=== PATIENT | female | born 1990 | race Caucasian/White ===

== ENCOUNTER 2023-04-09 19:34 | Outpatient (REF) | payer OTHER, SELFPAY ==
[2023-04-15 10:07] LABS: Age Gdln ACOG Testing Note (.); HPV Aptima Negative (Negative); IGP, Aptima HPV, rfx 16/18,45 Note (.)
== END 2023-04-09 19:35 | disposition home or self-care (01) ==
LOC: LAB 19:34
PROVIDERS: Family Provider Family Medicine; Visit Provider Physician Assistant
DX: Z12.4 Encounter for screening for malignant neoplasm of cervix (principal)
CPT/HCPCS: G0145

== ENCOUNTER 2023-04-22 07:44 | Outpatient (OUT) | payer OTHER, SELFPAY ==
--- NOTE | 2023-04-22 07:54 | US_ITS ---
[address] [address] Patient Name: MALLORY BERMEO MRN: [id number] date: 1990 Sex: F Assigned Patient Location: Current Patient Location: Accession/Order Number: [id number] Exam Date: 04/22/2023 08:00 Report Date: 04/22/2023 08:54 At the request of: RAZA MORGAN Procedure: US pelvis transvaginal EXAM: US pelvis transvaginal HISTORY: . Polycystic Ovarian Syndrome . COMPARISON: None. TECHNIQUE: Transvaginal scanning was performed FINDINGS: Scanning of the pelvis demonstrates uterus to be anteverted and measures 6.6 x 2.8 x 4.5 cm. Endometrial complex measures 5 mm. Right ovary measures 4.1 x 2.7 x 2.8 cm. Color-flow is noted. Small follicles are noted. There is a 3 x 2.3 cm simple cyst in the right ovary. Left ovary measures 2.2 x 2.4 x 1 cm. Color-flow is noted. Small follicles are noted. No fluid is noted in the cul-de-sac. US/US pelvis transvaginal IMPRESSION: 1. Normal-appearing uterus and endometrial complex. 2. 3 x 2.3 cm simple cyst in the right ovary. 3. Normal-appearing left ovary. Electronically authenticated by: SEBASTIEN LYNN Date: 04/22/2023 08:54
[2023-04-22 09:04] LABS: Basophils Absolute Auto 0.1 10^3/uL (0.0-0.1); Basophils Percent Auto 0.5 % (0.2-2.0); Eosinophils Absolute Auto 0.3 10^3/uL (0.0-0.7); Eosinophils Percent Auto 2.9 % (0.9-7.0); Hematocrit 38.1 % (36.0-48.0); Hemoglobin 13.1 g/dL (12.0-16.0); Immature Granulocytes Abs Auto 0.05 10^3/uL (0.00-0.03); Immature Granulocytes Pct Auto 0.5 % (0.0-0.5); Lymphocytes Absolute Auto 2.3 10^3/uL (1.2-3.8); Lymphocytes Percent Auto 24.7 % (20.5-60.0); Mean Corpuscular HGB Conc 34.4 g/dL (29.9-35.2); Mean Corpuscular Volume 90.1 fL (81.0-99.0); Mean Platelet Volume 9.4 fL (9.5-13.5); Monocytes Absolute Auto 0.5 10^3/uL (0.3-0.8); Neutrophils Absolute Auto 6.1 10^3/uL (1.4-6.5); Neutrophils Percent Auto 66.4 % (43.0-75.0); Platelet Count 283 10^3/uL (150-450); Red Blood Count 4.23 10^6/uL (4.20-5.40); Red Cell Distribution Width 13.2 % (11.0-15.0); White Blood Count 9.2 10^3/uL (4.0-11.0)
[2023-04-22 09:29] LABS: INR 0.96; Partial Thromboplastin Time 30.3 sec (22.3-36.2); Prothrombin Time 10.2 sec (9.0-11.6)
[2023-04-22 09:35] LABS: Estimated Average Glucose 180 mg/dL; Glycohemoglobin A1C 7.9 % (4.5-6.2)
[2023-04-22 09:46] LABS: HCG Quantitative <1 mIU/mL; Thyroid Stimulating Hormone 3.134 uIU/mL (0.358-3.740)
[2023-04-22 10:08] LABS: Free T4 0.99 ng/dL (0.76-1.46)
== END 2023-04-22 07:45 | disposition home or self-care (01) ==
PROVIDERS: Family Provider Family Medicine; PCP Family Medicine; Visit Provider Physician Assistant
DX: N97.0 Female infertility associated with anovulation (principal); N83.291 Other ovarian cyst, right side
CPT/HCPCS: 36415; 76830; 83036; 84439; 84443; 84702; 85025; 85610; 85730

== ENCOUNTER 2023-06-03 10:32 | Outpatient (OUT) | payer OTHER, SELFPAY ==
[2023-06-03 11:42] LABS: Thyroid Stimulating Hormone 1.421 uIU/mL (0.358-3.740)
[2023-06-03 18:46] LABS: Estimated Average Glucose 169 mg/dL; Glycohemoglobin A1C 7.5 % (4.5-6.2)
== END 2023-06-03 10:33 | disposition home or self-care (01) ==
LOC: LAB 10:34
PROVIDERS: Family Provider Family Medicine; PCP Family Medicine; Visit Provider Obstetrics & Gynecology
DX: E07.9 Disorder of thyroid, unspecified (principal); E88.810 Metabolic syndrome
CPT/HCPCS: 36415; 83036; 84443

== ENCOUNTER 2025-01-18 12:48 | Outpatient (OUT) | payer OTHER, SELFPAY ==
--- OUTSIDE RECORDS SUMMARY | 2024-08-30 09:27 | XMS_ITS ---
Author Organization The [facility] in [place] Address [address] [place] [address] Care Team Providers Care Cake Washer Name Role Phone Marla Fritz Primary Care Provider [phone] REASON FOR VISIT Update Demographics - Personal Info Encounters Encounter Location Date Provider Diagnosis [facility] [address] [place] [address] 08/30/2024 Marla Fritz Plan Of Treatment No Information Progress Notes * Katherin OLVERA RDOB:1990 (34 yo F)Acc No.[id number]:08/30/2024 Patient: Katherin CEBALLOS :1990 A ge:34 Y S ex:Female Address:[address] [place], [address] * true * Date: Generated for Printi ng/Faelfegog/eTransmitting on: 0 01/18/2025 12:53 PM EDT
--- OUTSIDE RECORDS SUMMARY | 2024-08-30 09:27 | XMS_ITS ---
Author Organization The [facility] in [place] Address [address] [place] [address] Care Team Providers Care Rubber Curer Name Role Phone Marla Fritz Primary Care Provider [phone] REASON FOR VISIT New Refill Request Medications [...] Active Encounters Encounter Location Date Provider Diagnosis [facility] [address] [place] [address] 08/30/2024 Marla Fritz Type 2 diabetes mellitus [...] Once a day for 30 days 03/05/2024 Progress Notes * Katherin BERMEO RDOB:1990 (34 yo F)Acc No.[id number]:08/30/2024 Patient: Katherin CEBALLOS :1990 A ge:34 Y S ex:Female Address:[facility] [address] [place], [address] * Refills Refill Levothyroxine Sodium Tablet, 25 MCG, Orally, 3, 1 tablet in the morning on an empty stomach, Once a day, 30 days, Refills=0 Refill glipiZIDE Tablet, 5 MG, Orally, 30, 1 tablet 30 minutes before breakfast, Once a day, 30 days, Refills=3 * true * Date: Generated for Stephani real/Tom/Aditiitting on: 0 01/18/2025 12:54 PM EDT
--- OUTSIDE RECORDS SUMMARY | 2024-11-10 05:45 | XMS_ITS ---
Author Organization [facility] in [place] Address [address] [place] [address] Care Team Providers Care Critical Care Nurse Name Role Phone Marla Frtiz Primary Care Provider Maggie Dover [phone] Results Component Value Reference Range Notes UA DIP AUTO WO MICRO (20785) - IN OFFICE Reviewed date:11/10/2024 10:21:53 AM [...] - NEG ESTERASE neg NEG - NEG PREG ([facility]), URINE - IN OFFI CE Reviewed date:11/10/2024 10:22:05 AM Interpretation: Performing Lab: Notes/Report: PREG ([facility]), URINE - IN OFFICE neg NEG - NEG Control Present yes UA (URINALYSIS), COMPLETE (8 1000) - IN OFFICE (Not yet reviewed by provider) Interpretation:Entered in Error Performing Lab: Notes/Report: Entered in Error COLOR tipton YELLOW - DEB CLARITY cloudy CLEAR - CLEAR GLUCOSE 2+ NEG - NEG MG/DL REASON FOR VISIT sick Medications Medication SIG [...] 11/10/2024 Encounters Encounter Location Date Provider Diagnosis [facility] [address] [place] [address] 11/10/2024 Maggie Stanislaw Nausea R11.0 ; Other [...] w/eGFR CKD-EPI 2024 CBC WITH DIFF 11/10/2024 Progress Notes * Katherin BERMEO RDOB:1990 (34 yo F)Acc No.[id number]:11/10/2024 Established Patient: Mary MIRGRACEKatherin R Provider: Kassi Dvoer :1990 A ge:34 Y S ex:Female Date:11/10/2024 Address:[facility] [address] [facility] Pcp:Marla Fritz Check In:09:33 AM ESTCheck O ut:10:22 AM EST Subjective: * Chief Complaints: * 1 . Sick. 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 [...] L AB: UA DIP AUTO WO MICRO (25789) - IN OFFICE (Collection Date & Time - 11/10/2024) L AB: UA (URINALYSIS), COMPLETE (10473) - IN OFFICE (Order Cancelled) (Collection Date [...] Labs: * L ab: UA (URINALYSIS), COMPLETE (12218) - IN OFFICE (Order Cancelled) (Collection Date & Time - 11/10/2024) E ntered in Error Value Reference Range C OLOR tipton YELLOW - DEB * C LARITY cloudy CLEAR - CLEAR * G LUCOSE 2+ NEG - NEG MG/DL ?Lab: PREG ([facility]), URINE - IN OFFICE (Collection Date & Time - 11/10/2024)* Value Reference Range P REG ([facility]), URINE - IN OFFICE neg NEG - NEG * C ontrol Present yes ?Lab: UA DIP AUTO WO MICRO (52741) - IN OFFICE (Collection Date & Time [...] NEG * Procedure Codes: 8 1000 URINALYSIS, 05800 URINE TEST, 34709 HEMOGLOBIN; GLYCATED, Modifiers: QW , 87659 GLUCOSE;BLOOD,REGNT.STRIP, 25810 OFFICE/OTHER OUTPATIENTVISIT,EST,DETAILED, 27138 URINALYSIS;WO MICROSCOPY, Modifiers: QW , 78976 OFFICE/OTHER OUTPATIENT VISIT,EST,EXPANDED * * Electronically signed by Katia Dover , HAZARDOUS MATERIALS DRIVER, STUDIO POTTER.HAZARDOUS MATERIALS DRIVER.[id number] on 11/17/2024 at 09:05 AM EDT Sign off status: Completed Visit Status: C HK (Check Out) true * Provider: Kassi Dover Date: 0 11/10/2024 Generated for Stephani ng/Faxing/eTransmitting on: 0 01/18/2025 12:17 PM EDT History and Physical Notes * HPI [...]
--- OUTSIDE RECORDS SUMMARY | 2025-01-13 10:00 | XMS_ITS | Encounter Summary ---
Author Organization [facility] Address [address] [place] [address] Care Team Providers Care Gas Meter Checker Name Role Phone Marla Fritz MD Primary Care Provider [phone] Source Comments In the event this information is protected by the Federal Confidentiality of Alcohol and Drug AbusePatient Records regulations: The Federal rules restrict any use of the information to criminally investigate or prosecute any alcohol or drug abuse patient.[facility] Reason for Visit * Reason Comments Family History Of Cancer Encounter Details Date Type Department Care Team (Latest Contact Info) Description 01/13/2025 10:00 AM EDT [facility] [address] [place] [address] [place], [place] [address] [place] [address] Family history of gene mutation (Primary Dx); Family history of colon cancer; Family history of ovarian cancer Social History Tobacco Use Types Packs/Day Years Used Date Smoking Tobacco: Never Assessed Area Deprivation Index Answer Date Marco A rded National Score (1-100), lower number is lower ri sk 81 01/13/2025 State Score (1-10), lower number is lower risk 7 01/13/2025 Data from: https://www.[facility] borhoodatlas.[facility]/. Last address used for calculation [address] 01/13/2025 Comments Unknown Sex and Gender Information Value Date Recorded Sex Assigned at Not on file Legal Sex Female 11:47 AM EDT Gender Identity Not on file Sexual Orientation Not on file documented as of this encounter Plan of Treatment Pending Results Name Type Priority Associated Diagnoses Date /Time [facility] HEREDITARY DIAGNOSTIC CANCER PANEL Lab Routine Family history of gene mutation Family history of colon cancer Family history of ovarian cancer 01/13/2025 10:42 AM EDT Scheduled Orders Name Type Priority Associated Diagnoses Orde r Schedule [facility] HEREDITARY DIAGNOSTIC CANCER PANEL Lab Routine Family history of gene mutation Family history of colon cancer Family history of ovarian cancer Expected: 01/13/2025, Expires: 04/14/2025 documented as of this encounter Visit Diagnoses Diagnosis Family history of gene mutation- Primary Family history of colon cancer Family history of malignant neoplasm of gastrointestinal tract Family history of ovarian cancer Family history of malignant neoplasm of ovary documented in this encounter Care Teams Gas Meter Checker Relationship Specialty Start Date End Date Marla Fritz MD [address] [place] [phone] PCP - General Family Medicine 01/04/25 documented as of this encounter
--- OUTSIDE RECORDS SUMMARY | 2025-01-18 11:10 | XMS_ITS | Encounter Summary ---
Author Organization [facility] Address [address] [place] [address] Care Team Providers Care Medical Front Desk Coordinator Name Role Phone Marla Fritz MD Primary Care Provider + [phone] Reason for Visit * Reason Comments Fertility Encounter Details Date Type Department Care Team (Late st Contact Info) Description 01/18/2025 11:10 AM EDT Office Visit [facility] [address] [facility] [place] [address] Enoc Gusman, DO [address] [facility] [address] [place], [place] [phone] PCOS (polycystic ovarian syndrome); Thyroid disease ; [...] 11:19 AM EDT documented in this encounter Plan of Treatment Upcoming Encounters Date Type Department Care Team (Late st Contact Info) Description 02/02/2025 10:00 AM EDT Office Visit [facility] [address] [facility] [place] [phone] Yadi Mathis PA [address] [facility] [place] [address] 05/18/2025 8:40 AM EDT Office Visit [facility] [address] [facility] [place] [phone] Enoc Gusman DO [address] [facility] [place] [address] Scheduled Orders Name Type Priority Associated Diagnoses [...] cycles documented in this encounter Care Teams Medical Front Desk Coordinator Relationship Specialty Start Date End Date Marla Fritz MD [facility] [place] [address] PCP - General Family Medicine 02/22/23 documented as of this encounter
--- OUTSIDE RECORDS SUMMARY | 2025-01-18 12:53 | XMS_ITS | Encounter Summary ---
Author Organization [facility] Address [address] [place] [address] Care Team Providers Care Plastics Fabricator And Assembler Name Role Phone Marla Fritz MD Primary Care Provider + [phone] Encounter Details Date Type Department Care Team (Late st Contact Info) Description 04/07/2023 Abstract [facility] [address] [facility] [place] [phone] Yadi Mathis PA [address] [facility] [place] [address] Social History Tobacco Use Types Packs/Day Years Used Date Smoking Tobacco: Never Tobacco Cessation:Counseling Given: Not Answered Alcohol Use Standard Drinks/Week Comments Yes 0 (1 standard drink = 0.6 oz pure alcohol) 1-2 drinks less than monthly in the past year, Caffeine intake: 2-3 cups per day Comments Unknown Sex and Gender Information Value Date Recorded Sex Assigned at Female 02/22/2023 11:11 AM EDT Legal Sex Female 8:00 PM EDT Gender Identity Female 10/10/2022 8:00 PM EDT Sexual Orientation Straight 02/22/2023 11 :11 AM EDT COVID-19 Exposure Response Date Recorded In the last 10 days, have yo u been in contact with someone who was confirmed or suspected to have Coronavirus/COVID-19? No / Unsure 04/08/2023 9:53 AM EDT documented as of this encounter Plan of Treatment Upcoming Encounters Date Type Department Care Team (Late st Contact Info) Description 02/02/2025 10:00 AM EDT Office Visit [facility] [address] [facility] [place] [address] Yadi Mathis PA [address] [facility] [address] [place], [place] [phone] 05/18/2025 8:40 AM EDT Office Visit [facility] [address] [facility] [place] [phone] Eonc Gusman DO [address] [facility] [address] [place], [place] [phone] documented as of this encounter Visit Diagnoses Not on filedocumented in this encounter Care Teams Plastics Fabricator And Assembler Relationship Specialty Start Date End Date Marla Fritz MD [address] [place] [address] PCP - General Family Medicine 02/22/23 documented as of this encounter
--- OUTSIDE RECORDS SUMMARY | 2025-01-18 12:53 | XMS_ITS | Clinical Summary ---
Author Organization [facility] Address [facility] [place] [address] Care Team Providers Care Geophysical Engineer Name Role Phone Marla Fritz MD Primary Care Provider [phone] Encounters Date Type Department Care Team Description 01/13/2025 10:00 AM EDT [facility] [address] [place], [place] [id number] [place], [place], [place] Family history of gene mutation (Primary Dx); Family history of colon cancer; Family history of ovarian cancer 01/13/2025 Patient [facility] [address] [place], [place] [phone] Provider, [facility] Please Read: Genetic Testing Information 01/13/2025 Travel from Last 3 Months Social History Tobacco Use Types Packs/Day Years Used Date Smoking Tobacco: Never Assessed Area Deprivation Index Answer Date Marco A rded National Score (1-100), lower number is lower ri sk 81 01/13/2025 State Score (1-10), lower number is lower risk 7 01/13/2025 Data from: https://www.neigh borhoodatlas.medicine.[facility].edu/. Last address used for calculation [address] 01/13/2025 Comments Unknown Sex and Gender Information Value Date Recorded Sex Assigned at Not on file Legal Sex Female 11:47 AM EDT Gender Identity Not on file Sexual Orientation Not on file Plan of Treatment Health Maintenance Due Date Last Done Comments Anxiety Screening 2009 Depression Screening 2009 HIV Screening 2009 Hepatitis C Screening 2009 DTaP,Tdap,Td Vaccine (1 - Tdap) 2010 Hepatitis B Vaccine (1 of 3 - 19+ 3-dose series) 08/02 Cervical Cancer Screening 2012 Covid-19 Vaccine (2023- season) 2024 Influenza Vaccine (Season Ended) 2025 Insurance [employer] Member Subscriber Plan / Payer (Ef fective 2024-Present) Name:Katherin Olvera Relation to Subscriber:Self Name:Katherin Olvera Payer ID:[id number] (NAIC) Type:PPO Address: [address] [address] Care Teams Geophysical Engineer Relationship Specialty Start Date End Date Marla Fritz MD [address] [place] [phone] PCP - General Family Medicine 01/04/25
--- OUTSIDE RECORDS SUMMARY | 2025-01-18 12:54 | XMS_ITS | Encounter Summary ---
Author Organization [facility] Address [address] [place] [address] Care Team Providers Care Bus Boy Name Role Phone Marla Fritz MD Primary Care Provider [phone]- [phone] Source Comments In the event this information is protected by the Federal Confidentiality of Alcohol and Drug AbusePatient Records regulations: The Federal rules restrict any use of the information to criminally investigate or prosecute any alcohol or drug abuse patient.[facility] Encounter Details Date Type Department Care Team (Latest Contact Info) Description 01/13/2025 Travel Social History Tobacco Use Types Packs/Day Years Used Date Smoking Tobacco: Never Assessed Area Deprivation Index Answer Date Marco A rded National Score (1-100), lower number is lower ri sk 81 01/13/2025 State Score (1-10), lower number is lower risk 7 01/13/2025 Data from: https://www.neigh borhoodatlas.medicine.[facility].edu/. Last address used for calculation [address] 01/13/2025 Comments Unknown Sex and Gender Information Value Date Recorded Sex Assigned at Not on file Legal Sex Female 11:47 AM EDT Gender Identity Not on file Sexual Orientation Not on file documented as of this encounter Plan of Treatment Not on file documented as of this encounter Visit Diagnoses Not on filedocumented in this encounter Care Teams Bus Boy Relationship Specialty Start Date End Date Marla Fritz MD [address] [place] [phone] PCP - General Family Medicine 01/04/25 documented as of this encounter
--- OUTSIDE RECORDS SUMMARY | 2025-01-18 12:54 | XMS_ITS | Encounter Summary ---
Author Organization [facility] Address [address] [place] [address] Care Team Providers Care Armature Balancer Name Role Phone Marla Fritz MD Primary Care Provider + [phone] Encounter Details Date Type Department Care Team (Late st Contact Info) Description 04/22/2023 Clinisync Result Encounter [facility] External Department Unsolicited Yadi Morgan PA [address] [place] [address] [place] [address] Social History Tobacco Use Types Packs/Day Years Used Date Smoking Tobacco: Never Alcohol Use Standard Drinks/Week Comments Yes 0 (1 standard drink = 0.6 oz pure alcohol) 1-2 drinks less than monthly in the past year, Caffeine intake: 2-3 cups per day Comments No Sex and Gender Information Value [...] suspected to have Coronavirus/COVID-19? No / Unsure 04/16/2023 8:48 AM EDT documented as of this encounter Plan of Treatment Upcoming Encounters Date Type Department Care Team (Late st Contact Info) Description 02/02/2025 10:00 AM EDT Office Visit [facility] [address] [facility] [place] [phone] Yadi Morgan, PA [address] [facility] [place] [address] 05/18/2025 8:40 AM EDT Office Visit [facility] [address] [facility] [place] [phone] Enoc Gusman, DO [address] [facility] [place] [address] documented as of this encounter Procedures Procedure Name Priority Date/Time Associated Diagnosis Comments US PELVIS TRANSVAGINAL 04/22/2023 8:54 AM EDT [facility]H PREG QUANT HCG Routine 04/22/2023 8: 38 AM EDT [facility] PROTHROMBIN TIME INR W/O COUM Routine 04/22/2023 8:38 AM EDT MLR HEMOGLOBIN A1C Routine 04/22/2023 8: 38 AM EDT [facility] APTT Routine 04/22/2023 8:38 AM EDT ALL THYROXINE (T4) FREE Routine 04/22/2023 8:38 AM EDT ALL THYROID STIM HORMONE Routine 04/22/2023 8:38 AM EDT ALL CBC WITH AUTO DIFF Routine 04/22/2023 8:38 AM EDT documented in this encounter Results * US PELVIS TRANSVAGINAL (04/22/2023 8:54 AM EDT) Anatomical Region Laterality Modality Other 04/22/2023 8:54 AM EDT Narrative 04/22/2023 8:54 AM EDT The [address] [address] Ultrasound Report Signed Patient: MALLORY BERMEO MR#: [id number] : 1990 Acct:[id number] Age/Sex: 32 / F ADM Date: 04/22/23 Loc: US Attending Dr: Yadi Morgan Ordering Physician: Yadi Morgan Date of Service: 04/22/23 Procedure(s): US pelvis transvaginal Accession Number(s): [id number] cc: Yadi Morgan; MARLA FRITZ [address] [address] Patient Name: MALLORY BERMEO MRN: [id number] date: 1990 Sex: F Assigned Patient Location: US Current Patient Location: US Accession/Order Number: [id number] Exam Date: 04/22/2023 08:00 Report Date: 04/22/2023 08:54 At the request of: YADI MORGAN Procedure: US pelvis transvaginal EXAM: US pelvis transvaginal HISTORY: . Polycystic Ovarian Syndrome . COMPARISON: None. TECHNIQUE: Transvaginal scanning was performed FINDINGS: Scanning of the pelvis demonstrates uterus to be anteverted and measures 6.6 x 2.8 x 4.5 cm. Endometrial complex measures 5 mm. Right ovary measures 4.1 x 2.7 x 2.8 cm. Color-flow is noted. Small follicles are noted. There is a 3 x 2.3 cm simple cyst in the right ovary. Left ovary measures 2.2 x 2.4 x 1 cm. Color-flow is noted. Small follicles are noted. No fluid is noted in the cul-de-sac. US/US pelvis transvaginal IMPRESSION: 1. Normal-appearing uterus and endometrial complex. 2. 3 x 2.3 cm simple cyst in the right ovary. 3. Normal-appearing left ovary. Electronically authenticated by: SEBASTIEN FUENTES Date: 04/22/2023 08:54 Dictated By: Sebastien Fuentes M.D. Signed By: 04/22/2356 DD/ TD/TT: Physician Office Secretary: Procedure Note Radiology, Radiologist, MD - 04/22/2023 The [place] [id number] Ultrasound Report Signed Patient: MALLORY BERMEO RMR#: [id number] : 1990Acct:[id number] Age/Sex: 32 / FADM Date: 04/22/23 Loc: US Attending Dr: Yadi Morgan Ordering Physician: Yadi Morgan Date of Service: 04/22/23 Procedure(s): US pelvis transvaginal Accession Number(s): [id number] cc: Yadi Morgan; MARLA FRITZ [place] [address] Patient Name: MALLORY BERMEO MRN: [id number] date: 1990 Sex: F Assigned Patient Location: US Current Patient Location: US Accession/Order Number: [id number] Exam Date: 04/22/2023 08:00 Report Date: 04/22/2023 08:54 At the request of: YADI MORGAN Procedure: US pelvis transvaginal EXAM: US pelvis transvaginal HISTORY: . Polycystic Ovarian Syndrome . COMPARISON: None. TECHNIQUE: Transvaginal scanning was performed FINDINGS: Scanning of the pelvis demonstrates uterus to be anteverted and measures 6.6 x 2.8 x 4.5 cm. Endometrial complex measures 5 mm. Right ovary measures 4.1 x 2.7 x 2.8 cm. Color-flow is noted. Smallfollicles are noted. There is a 3 x 2.3 cm simple cyst in the right ovary. Left ovary measures 2.2 x 2.4 x 1 cm. Color-flow is noted. Small folliclesare noted. No fluid is noted in the cul-de-sac. US/US pelvis transvaginal IMPRESSION: 1. Normal-appearing uterus and endometrial complex. 2. 3 x 2.3 cm simple cyst in the right ovary. 3. Normal-appearing left ovary. Electronically authenticated by: SEBASTIEN FUENTES Date: 04/22/2023 08:54 Dictated By: Sebastien Fuentes M.D. Signed By:04/22/23855 DD/ 3 TD/TT: Physician Office Secretary: Yadi AL [facility] Final Result * ALL THYROXINE (T4) FREE (04/22/2023 8:38 AM EDT) FREE T4 0.99 0.76 - 1.46 ng/dL TBH 04/22/2023 8:38 AM EDT 04/22/2023 8:41 AM EDT Narrative [facility] - 04/22/2023 10:10 AM EDT us Yadi ELENAISYDENNY Final Result Performing Organization Address [facility] Co de Phone Number [facility] TB * TBH PREG QUANT HCG (04/22/2023 8:38 AM EDT) HCG QUANTITATIVE <1 mIU/mL TBH Comment: 5-50 0.2-1 WEEK 50-500 1-2 WEEKS 100-5,000 2-3 WEEKS 500-10,000 3-4 WEEKS 1,000-50,000 4-5 WEEKS 10,000-100,000 5-6 WEEKS 15,000-200,000 6-8 WEEKS 10,000-100,000 2-3 MONTHS 04/22/2023 8:38 AM EDT 04/22/2023 8:41 AM EDT Narrative [facility] - 04/22/2023 9:50 AM EDT us Yadi ELENAISYDENNY Final Result Performing Organization Address [facility] Co de Phone Number [facility] TB * ALL THYROID STIM HORMONE (04/22/2023 8:38 AM EDT) THYROID STIMULATING HORMONE 3.134 0.358 - 3.740 uIU/mL [facility]H 04/22/2023 8:38 AM EDT 04/22/2023 8:41 AM EDT Narrative [facility] - 04/22/2023 9:50 AM EDT us Yadi SYED Final Result Performing Organization Address City/[facility] Co de Phone Number [facility] TB * (ABNORMAL) MLR HEMOGLOBIN A1C (04/22/2023 8:38 AM EDT) GLYCOHEMOGLOBIN A1C 7.9(H) 4.5 - 6.2 % TB Comment: ADA RECOMMENDED LIMIT 4.0 - 6.0 ADA THERAPEUTIC TARGET < 7.0 ACTION SUGGESTED > 7.0 ESTIMATED AVERAGE GLUCOSE 180 mg/dL TB 04/22/2023 8:38 AM EDT 04/22/2023 8:41 AM EDT Narrative CL[facility] - 04/22/2023 9:37 AM EDT us Yadi SYED Final Result Performing Organization Address [facility] Co de Phone Number [facility] * [facility] APTT (04/22/2023 8:38 AM EDT) PARTIAL THROMBOPLASTIN TIME 30.3 22.3 - 36.2 sec TB 04/22/2023 8:38 AM EDT 04/22/2023 8:41 AM EDT Narrative CL[facility] - 04/22/2023 9:30 AM EDT Yadi SYED Final Result Performing Organization Address [facility] Phone Number [facility] * [facility]/O COUM (04/22/2023 8:38 AM EDT) PROTHROMBIN TIME 10.2 9.0 - 11.6 sec TB TB INR 0.96 TBH Comment: DESIRED INR: 2.0-3.0 CONDITIONS NOT LISTED BELOW 2.5-3.5 FOR PROSTHETIC HEART VALVE REPLACEMENT 2.5-3.5 RECURRENT THROMBOSIS 04/22/2023 8:38 AM EDT 04/22/2023 8:41 AM EDT Narrative CLINISYNC - 04/22/2023 9:30 AM EDT Yadi SYED Final Result Performing Organization Address [facility] Co de Phone Number CL[facility]NC TBH * (ABNORMAL) ALL CBC WITH AUTO DIFF (04/22/2023 8:38 AM EDT) [facility] TB WBC 9.2 4.0 - 11.0 10 3/uL TBH TBH RBC 4.23 4.20 - 5.40 10 6/uL TBH TBH HGB 13.1 12.0 - 16.0 g/dL TBH TBH HCT 38.1 36.0 - 48.0 % TBH TBH MCV 90.1 81.0 - 99.0 fL TBH TBH MCH 31.0 26.7 - 34.0 pg TBH TBH MCHC 34.4 29.9 - 35.2 g/dL TBH TBH RDW 13.2 11.0 - 15.0 % TBH TBH PLT 283 150 - 450 10 3/uL TBH TBH MPV 9.4(L) 9.5 - 13.5 fL TBH NEUTROPHILS PERCENT AUTO 66.4 43.0 - 75.0 % TBH LYMPHOCYTES PERCENT AUTO 24.7 20.5 - 60.0 % TBH MONOCYTES PERCENT AUTO 5.0 1.7 - 12.0 % TBH TBH EO % 2.9 0.9 - 7.0 % TBH BASOPHILS PERCENT AUTO 0.5 0.2 - 2.0 % TBH IMMATURE GRANULOCYTES PCT AUTO 0.5 0.0 - 0.5 % TBH NEUTROPHILS ABSOLUTE AUTO 6.1 1.4 - 6.5 10 3/uL TBH LYMPHOCYTES ABSOLUTE AUTO 2.3 1.2 - 3.8 10 3/uL TBH MONOCYTES ABSOLUTE AUTO 0.5 0.3 - 0.8 10 3/uL TBH TBH EO # 0.3 0.0 - 0.7 10 3/uL TBH BASOPHILS ABSOLUTE AUTO 0.1 0.0 - 0.1 10 3/uL TBH IMMATURE GRANULOCYTES ABS AUTO 0.05(H) 0.00 - 0.03 10 3/uL TBH 04/22/2023 8:38 AM EDT 04/22/2023 8:41 AM EDT Narrative CLINIS[facility]NC - 04/22/2023 9:05 AM EDT Yadi AL CLINIS[facility] Final Result [facility] documented in this encounter Visit Diagnoses Not on filedocumented in this encounter Care Teams Armature Balancer Relationship Specialty Start Date End Date Marla Fritz MD [address] [place] [phone] PCP - General Family Medicine 02/22/23 documented as of this encounter
--- OUTSIDE RECORDS SUMMARY | 2025-01-18 12:54 | XMS_ITS | Clinical Summary ---
Author Organization [facility] Address [address] [place] [address] Care Team Providers Care Central Office Maintainer Name Role Phone Marla Fritz MD Primary Care Provider [phone] Allergies No known active allergies Medications Ventolin HFA 108 (90 Base) MCG/ACT inhaler 2 puffs Inhalation every 4 hrs prn cough for 30 days 02/06/20 10 Active levothyroxine (Synthroid) 25 MCG tabletIndicati ons:Thyroid disease Take 1 tablet (25 mcg) by mouth in the morning. Take before meals. 30 tablet 11 04/23/20 23 Active glipiZIDE (Glucotrol) 5 MG tablet Take 5 mg by mouth in the morning and 5 mg in the evening. Take before meals. Active metFORMIN XR (Glucophage-XR ) 500 MG 24 hr tablet TAKE 1 TABLET BY MOUTH ONCE DAILY WITH EVENING MEAL 025 Discontinued Encounters Date Type Department Care Team Description 01/18/2025 11:10 AM EDT Office Visit [facility] [address] [place] [address] Enoc Gusman DO PCOS (polycystic ovarian syndrome); Thyroid disease ; Anovulation; Irregular periods/menstrual cycles 01/18/2025 Bamboo flowsheet [facility] [address] [place] [address] Naseem, Enoc, DO from Last 3 Months Family History Medical History Relation Name Comments ADD / ADHD Brother Bipolar disorder Brother Breast cancer Maternal Grandmother Colon cancer Maternal Grandmother Diabetes Maternal Grandmother Hypothyroidism Maternal Grandmother Cancer Mother ovarian, colon Lymphoma Mother Stroke Mother 2023 Leukemia Mother's Sister Relation Name Status Comments Brother 2 Father Alive Maternal Grandmother Mother Alive Mother's Sister Social History Tobacco Use Types Packs/Day Years [...] Orientation Straight 02/22/2023 11 :11 AM EDT Last Filed Vital Signs Vital Sign Reading [...] Mass Index 38.14 01/18/2025 11:19 AM EDT Plan of Treatment Upcoming Encounters Date Type Department Care Team (Late st Contact Info) Description 02/02/2025 10:00 AM EDT Office Visit [facility] [place] [address] [place] [phone] Yadi Mathis PA [address] [place] [address] 05/18/2025 8:40 AM EDT Office Visit [facility] [address] [place] [phone] Enoc Gusman, DO [address] [place] [address] [place] [employer] [place] [address] Care Teams Central Office Maintainer Relationship Specialty Start Date End Date Marla Fritz MD [address] [place] [address] PCP - General Family Medicine 02/22/23
--- OUTSIDE RECORDS SUMMARY | 2025-01-18 12:54 | XMS_ITS | Encounter Summary ---
Author Organization [facility] Address [address] [place] [address] Care Team Providers Care Systems Integration Advisor Name Role Phone Marla Fritz MD Primary Care Provider [phone] Source Comments In the event this information is protected by the Federal Confidentiality of Alcohol and Drug AbusePatient Records regulations: The Federal rules restrict any use of the information to criminally investigate or prosecute any alcohol or drug abuse patient.[facility] Encounter Details Date Type Department Care Team (Late st Contact Info) Description 01/13/2025 Patient Msg [facility] [address] [place] [id number] Provider, Ccsejal Please Read: Genetic Testing Information Social History Tobacco Use Types Packs/Day Years Used Date Smoking Tobacco: Never Assessed Area Deprivation Index Answer Date Marco A rded National Score (1-100), lower number is lower ri sk 81 01/13/2025 State Score (1-10), lower number is lower risk 7 01/13/2025 Data from: https://www.neigh borhoodatlas.medicine.[facility].edu/. Last address used for calculation [address] [...] on filedocumented in this encounter Care Teams Systems Integration Advisor Relationship Specialty Start Date End Date Marla Fritz MD [address] [place] [phone] PCP - General Family Medicine 01/04/25 documented as of this encounter
--- OUTSIDE RECORDS SUMMARY | 2025-01-18 12:54 | XMS_ITS | Encounter Summary ---
Author Organization [facility] Address [address] [place] [address] Care Team Providers Care Forensics Team Director Name Role Phone Marla Fritz MD Primary Care Provider [phone] Encounter Details Date Type Department Care Team (Late st Contact Info) Description 01/18/2025 Bamboo flowsheet [facility] [address] [place] [phone] Enoc Gusman, DO [address] [place], [place] [phone] Social History Tobacco Use Types Packs/Day Years [...] 02/02/2025 10:00 AM EDT Office Visit [facility] [address] [facility] [address] Yadi Mathis PA [address] [place] [address] 05/18/2025 8:40 AM EDT Office Visit [facility] [address] [facility] [phone] Enoc Gusman DO [address] [address] [place], [place] [phone] documented as of this encounter Visit Diagnoses Not on filedocumented in this encounter Care Teams Forensics Team Director Relationship Specialty Start Date End Date Marla Fritz MD [address] [place] [phone] PCP - General Family Medicine 02/22/23 documented as of this encounter
--- OUTSIDE RECORDS SUMMARY | 2025-01-18 12:54 | XMS_ITS | Clinical Summary ---
Author Organization [employer] Address [id number] [address] [place] [address] Care Team Providers Care Fine Unhairer Name Role Phone Marla Fritz MD Primary Care Provider Allergies No known active allergies Medications albuterol (PROVENTIL HFA;VENTOLIN HFA) 90 mcg/actuation inhaler Inhale 2 puffs every 6 (six) hours as needed for wheezing. Active ibuprofen (ADVIL,MOTRIN) 800 mg tablet Take 1 tablet (800 mg total) by mouth 3 (three) times a day. 21 tablet 0 Active ondansetron ODT (ZOFRAN ODT) 4 mg disintegrating tablet Dissolve 1 tablet (4 mg total) on tongue every 8 (eight) hours as needed for nausea for up to 10 doses. 10 tablet 4 Active Active Problems No known active problems Encounters Date Type Department Care Team Description 11/28/2024 Travel from Last 3 Months Social History Tobacco Use Types Packs/Day Years Used Date Smoking Tobacco: Never Smokeless Tobacco: Never Alcohol Use Standard Drinks/Week Comments Yes 0 (1 standard drink = 0.6 oz pur e alcohol) socially Childcare Answer Date Recorded Childcare Unknown 01/06/2019 Employment Answer Date Recorded Employment Unknown 01/06/2019 Hunger Screening Answer Date Recorded Within the past 12 months we worried whether our food would run out before we got money to buy more. Never True 05/26/2024 Within the past 12 months th e food we bought just didn't last and we didn't have money to get more. Never True 05/26/2024 Purpose - Life Answer Date Recorded Purpose and direction in life Unknown Comments No Sex and Gender Information Value Date Recorded Sex Assigned at Female 08/06/2019 9:41 PM EST Legal Sex Female 11:45 AM EDT Gender Identity Not on file Sexual Orientation Straight 08/06/2019 9: 41 PM EST Last Filed Vital Signs Vital Sign Reading Time Taken Comments Blood Pressure 157/97 05/26/2024 11:44 AM EDT Pulse 71 05/26/2024 11:41 AM EDT Temperature 36.2 C (97.2 F) 05/26/2024 11:41 AM EDT Respiratory Rate 18 05/26/2024 11:41 AM EDT Oxygen Saturation 100% 05/26/2024 11:41 AM EDT Inhaled Oxygen Concentration - - Weight 113.4 kg (250 lb) 05/26/2024 11:41 AM EDT Height 170.2 cm (5' 7 ) 05/26/2024 11:41 AM EDT Body Mass Index 39.16 05/26/2024 11:41 AM EDT Plan of Treatment Health Maintenance Due Date Last Done Comments Diabetic Ophthalmology Exam 1991 Depression Screening 2003 Adult BMI Follow Up Plan 2009 Diabetic Foot Exam 2009 Pap Smear 2012 Influenza Vaccine 03/29/2025 04/28/2018, 04/19/2017 Adult BMI Screening 05/26/2025 05/26/2024 Tobacco Screening 05/26/2025 05/26/2024 DTaP,Tdap and Td Vaccines (3 - Td or Tdap) 12/15/2028 12/15/2018, 10/05/2008 Medical Devices Not on file Procedures Procedure Name Priority Date/Time Associated Diagnosis Comments MICROALBUMIN / CREATININE URINE RATIO Routine 11/28/2024 9:58 AM EDT Nausea Other specified disorders of teeth and supporting structures Type 2 diabetes mellitus without complications ([facility]) Mild intermittent asthma, uncomplicated Vitamin D deficiency, unspecified Essential (primary) hypertension Hypothyroidism, unspecified VITAMIN D 25 HYDROXY Routine 11/28/2024 9:58 AM EDT Nausea Other specified disorders of teeth and supporting structures Type 2 diabetes mellitus without complications (CMS-HCC) Mild intermittent asthma, uncomplicated Vitamin D deficiency, unspecified Essential (primary) hypertension Hypothyroidism, unspecified THYROID PROFILE INCLUDES TSH FT4 Routine 11/28/2024 9:58 AM EDT Nausea Other specified disorders of teeth and supporting structures Type 2 diabetes mellitus without complications (CMS-HCC) Mild intermittent asthma, uncomplicated Vitamin D deficiency, unspecified Essential (primary) hypertension Hypothyroidism, unspecified LIPID PROFILE Routine 11/28/2024 9:58 AM EDT Nausea Other specified disorders of teeth and supporting structures Type 2 diabetes mellitus without complications (CMS-HCC) Mild intermittent asthma, uncomplicated Vitamin D deficiency, unspecified Essential (primary) hypertension Hypothyroidism, unspecified COMPREHENSIVE METABOLIC PANEL Routine 11/28/2024 9:58 AM EDT Nausea Other specified disorders of teeth and supporting structures Type 2 diabetes mellitus without complications (CMS-HCC) Mild intermittent asthma, uncomplicated Vitamin D deficiency, unspecified Essential (primary) hypertension Hypothyroidism, unspecified CBC WITH AUTO DIFFERENTIAL Routine 11/28/2024 9:58 AM EDT Nausea Other specified disorders of teeth and supporting structures Type 2 diabetes mellitus without complications (CMS-HCC) Mild intermittent asthma, uncomplicated Vitamin D deficiency, unspecified Essential (primary) hypertension Hypothyroidism, unspecified from Last 3 Months Results * Thyroid profile includes TSH FT4 (11/28/2024 9:58 AM EDT) FREE T4 0.65 0.61 - 1.60 ng/dL 11/28/2024 4:05 PM EDT [facility] TSH 3.53 0.49 - 4.67 uIU/mL 11/28/2024 4:05 PM EDT [facility] Blood Venous blood / Unknown Venipuncture / Unknown 11/28/2024 9:58 AM EDT 11/28/2024 9:59 AM EDT Maggie Dover RAT TRAPPER-COBOL DEVELOPER LAB BLOOD ORDERABLES F inal Result [facility] [address] [place] [address], * CBC auto differential (11/28/2024 9:58 AM EDT) WBC 8.5 4 - 11 x10E9/L 11/28/2024 3:41 PM EDT [facility] RBC Count 4.66 3.8 - 5.2 X10E12/L 11/28/2024 3:41 PM EDT [facility] Hemoglobin 14.3 11.7 - 15.5 g/dL 11/28/2024 3:41 PM EDT [facility] Hematocrit 40.9 35 - 47 % 11/28/2024 3:41 PM EDT [facility] MCV 88 80 - 100 fL 11/28/2024 3:41 PM EDT [facility] MCH 30.7 27 - 34 pg 11/28/2024 3:41 PM EDT [facility] MCHC 35.0 32 - 36 g/dL 11/28/2024 3:41 PM EDT [facility] RDW 14.3 11.5 - 15 % 11/28/2024 3:41 PM EDT [facility] Platelet Count 298 150 - 450 X10E9/L 11/28/2024 3:41 PM EDT [facility] MPV 7.9 7 - 12 fL 11/28/2024 3:41 PM EDT [facility] Neutrophils Relative 62.1 % 11/28/2024 3:41 PM EDT [facility] Lymphocytes Relative 29.5 % 11/28/2024 3:41 PM EDT [facility] Monocytes Relative 4.6 % 11/28/2024 3:41 PM EDT [facility] Eosinophils Relative 3.1 % 11/28/2024 3:41 PM EDT [facility] Basophils Relative 0.7 % 11/28/2024 3:41 PM EDT [facility] Neutrophils Absolute (A) 5.3 10*3/uL 11/28/2024 3:41 PM EDT [facility] Lymphocytes Absolute 2.5 10*3/uL 11/28/2024 3:41 PM EDT [facility] Monocytes Absolute 0.4 10*3/uL 11/28/2024 3:41 PM EDT [facility] Eosinophils Absolute 0.3 10*3/uL 11/28/2024 3:41 PM EDT [facility] Basophils Absolute 0.1 10*3/uL 11/28/2024 3:41 PM EDT [facility] Differential Type AUTOMATED DIFFERENTIAL 11/28/2024 3:41 PM EDT [facility] Blood Venous blood / Unknown Venipuncture / Unknown 11/28/2024 9:58 AM EDT 11/28/2024 9:59 AM EDT Maggie Dover RAT TRAPPER-COBOL DEVELOPER LAB BLOOD ORDERABLES F inal Result [facility] [address] [place] [address], [place] [phone] * Microalbumin - Albumin: Creatinine Urine Ratio (11/28/2024 9:58 AM EDT) URINE CREATININE,RDM 151.60 mg/dL 11/28/2024 4:04 PM EDT [facility] MALB/CREAT RATIO 6.6 0.0 - 30.0 mg/g 11/28/2024 4:04 PM EDT [facility] MICROALBUMIN, URINE 1.0 0.0 - 1.9 mg/dL 11/28/2024 4:04 PM EDT [facility] Urine Urine specimen collection, clean catch / Unknown 11/28/2024 9:58 AM EDT 11/28/2024 9:59 AM EDT Maggie Dover RAT TRAPPER-COBOL DEVELOPER URINE ORDERABLES Final Result Performing Organization Address City/[facility]/ZIP Co de Phone Number [facility] [address] [place] [address], * (ABNORMAL) Vitamin D 25 hydroxy (11/28/2024 9:58 AM EDT) VITAMIN D 25 HYD TOT 12.7(L) 30.0 - 100.0 ng/mL 11/28/2024 4:16 PM EDT [facility] Blood Venous blood / Unknown Venipuncture / Unknown 11/28/2024 9:58 AM EDT 11/28/2024 9:59 AM EDT [facility] - 11/28/2024 4:16 PM EDT Vitamin D status 25 [place] Vitamin D Deficiency <20 ng/mL Insufficiency 20-29 ng/mL Sufficiency 30-100 ng/mL Toxicity >100 ng/mL NOTE: A pediatric reference range has not been established by the bushing press operator of this kit. The [place] [employer] recommends a Vitamin D level of = or >20ng/mL in infants and children. Maggie Dover RAT TRAPPER-COBOL DEVELOPER LAB BLOOD ORDERABLES F inal Result [facility] [address] [place] [address], * (ABNORMAL) Lipid profile (11/28/2024 9:58 AM EDT) CHOLESTEROL 215(H) 150 - 200 mg/dL 11/28/2024 3:56 PM EDT [facility] TRIGLYCERIDE 285(H) 27 - 150 mg/dL 11/28/2024 3:56 PM EDT [facility] HDL CHOLESTEROL 44 >39 mg/dL 3:56 PM EDT [facility] Comment: HDL <40 mg/dL - High Risk HDL > or = 40mg/dL- Desirable HDL >60 mg/dL - Negative Risk LDL (CALC) 114 <130 mg/dL 11/28/2024 3:56 PM EDT [facility] Comment: LDL <100 mg/dL - Desirable LDL >160 mg/dL - High Risk CHOLESTEROL:HDL 4.9 1.0 - 5.0 3:56 PM EDT [facility] VERY LOW LIPOPROTEIN 57(H) 0 - 30 mg/dL 11/28/2024 3:56 PM EDT [facility] Blood Venous blood / Unknown Venipuncture / Unknown 11/28/2024 9:58 AM EDT 11/28/2024 9:59 AM EDT us Maggie Dover RAT TRAPPER[employer]COBOL DEVELOPER LAB BLOOD ORDERABLES F inal Result [facility] [address] [place] [address], [place] [phone] * (ABNORMAL) Comprehensive metabolic panel (11/28/2024 9:58 AM EDT) SODIUM 136 134 - 146 mmol/L 11/28/2024 3:56 PM EDT [facility] POTASSIUM 3.9 3.5 - 5.0 mmol/L 11/28/2024 3:56 PM EDT [facility] CHLORIDE 98 98 - 109 mmol/L 11/28/2024 3:56 PM EDT [facility] CARBON DIOXIDE 30 22 - 32 mmol/L 11/28/2024 3:56 PM EDT [facility] ANION GAP 8 5 - 15 mmol/L 11/28/2024 3:56 PM EDT [facility] BLOOD UREA NITROGEN 8 5 - 23 mg/dL 11/28/2024 3:56 PM EDT [facility] CREATININE 0.48 0.40 - 1.00 mg/dL 11/28/2024 3:56 PM EDT [facility] Comment:METHOD TRACEABLE TO IDSD STANDARD GLUCOSE 194(H) 65 - 99 mg/dL 11/28/2024 3:56 PM EDT [facility] CALCIUM 9.8 8.5 - 10.5 mg/dL 11/28/2024 3:56 PM EDT [facility] TOTAL PROTEIN 7.5 6.0 - 8.0 g/dL 11/28/2024 3:56 PM EDT [facility] ALBUMIN 4.0 3.2 - 5.3 g/dL 11/28/2024 3:56 PM EDT [facility] ALKALINE PHOSPHATASE 108 39 - 130 U/L 11/28/2024 3:56 PM EDT [facility] AST 22 <=41 U/L 11/28/2024 3:56 PM EDT [facility] ALT 23 <=31 U/L 11/28/2024 3:56 PM EDT [facility] BILIRUBIN,TOTAL 0.5 0.3 - 1.2 mg/dL 11/28/2024 3:56 PM EDT [facility] EGFR Non-Race Dependent >90 >=60 ml/min/1.7 3sq.m 11/28/2024 3:56 PM EDT [facility] Comment: Reported eGFR is based on the CKD-EPI 2020 equation that does not use a race coefficient. Blood Venous blood / Unknown Venipuncture / Unknown 11/28/2024 9:58 AM EDT 11/28/2024 9:59 AM EDT us Maggie Dover RAT TRAPPER-COBOL DEVELOPER LAB BLOOD ORDERABLES F inal Result [facility] [address] [place] [address], [place] [phone] from Last 3 Months Insurance [address] [place] [address] [employer] * Guarantor: Katherin Olvera Caryn Account Type Relation to Patient Date of Phone Billing Address Workers Comp Self 1990 [address] [place] [address] WORKER'[employer]ENSATION Care Teams Fine Unhairer Relationship Specialty Start Date End Date Marla Fritz MD [address] [place] [id number] PCP - General Family Medicine 06/29/17
--- OUTSIDE RECORDS SUMMARY | 2025-01-18 12:54 | XMS_ITS | Patient Health Record ---
Author Organization [facility] [place] Address [address] [place] [address] Care Team Providers Care Practice Professional Name Role Phone Catrina Amrla Primary Care Provider Stanislaw Maggietrevor [place] [phone] Allergies No Known Allergies Results Component Value Reference Range Notes HEMOGLOBIN A1C - IN OFFICE Reviewed date:03/06/2024 08:29:19 AM Interpretation:7.6 Performing Lab: Notes/Report: 7.6 PREG ([facility]), URINE - IN OFFI CE Reviewed date:11/10/2024 10:22:05 AM Interpretation: Performing Lab: Notes/Report: PREG ([facility]), URINE - IN OFFICE neg NEG - NEG Control Present yes UA DIP AUTO WO MICRO ([id number]) - IN OFFICE Reviewed date:11/10/2024 10:21:53 AM [...] - NEG ESTERASE neg NEG - NEG Reason For Referral No Information Medications Medication SIG (Take, Route, Frequency, Duration) Notes Start Date End Date Status Naproxen 500 MG 1 tablet with food or milk as needed Orally BID for 30 days 04/04/2022 Active Ondansetron HCl 4 MG 1 tablet Orally every 8 hours as needed for nausea for 5 days orally dissolving tablet if available 11/10/2024 Active Levothyroxine Sodium 25 MCG 1 tablet in the morning on an empty stomach Orally Once a day for 30 days Active Cyclobenzaprine HCl 10 MG 1 tablet at bedtime as needed Orally Once a day for 20 days 05/01/2023 Unknown Ventolin HFA 108 (90 Base) MCG/ACT 2 puffs Inhalation every 4 hrs prn cough for 30 days Active glipiZIDE 5 MG 1 tablet 30 minutes before breakfast Orally Once a day for 30 days 03/05/2024 Active Amoxicillin 500 MG 1 capsule Orally every 8 hrs for 10 days 11/10/2024 Active metFORMIN HCl ER 500 MG 1 tablet with evening meal Orally BID for 90 days Not-Taking Immunizations Vaccine Route Administration Date Status Comme nts Flu, unspecified Unknown 04/28/2019 Administered Hep A, Adult, 2 Dose Unknown 04/11/2009 Administered HPV (Gardasil) Unknown 10/05/2008 Administered Meningococcal Unspecified Unknown 10/05/2008 Administer ed Tdap Unknown 12/15/2018 Administered Tdap (Boostrix) IM Intramuscular 12/24/2018 Administered Social History Tobacco Use: Social History Observation Description Date Details (start date - stop date) Never Smoker NA - NA Tobacco Use/Smoking Question Answer Notes Patient is a nonsmoker Problems Problem Type SNOMED Code ICD Code Onset Dates Problem Status W/U Status Risk Notes Problem 38313819 Essential (prima ry) hypertension (I10) Active confirmed Problem 726332822 Hypothyroidism, unspecified (E03.9) Active confirmed Problem 76368340 Type 2 diabetes mellitus with hyperglycemia (E11.65) Active confirmed Problem 282097566 Morbid (severe) obesity due to excess calories (E66.01) Active confirmed Problem 478106279 Other obesity du e to excess calories (E66.09) Active confirmed Problem 673088191 Mixed hyperlipidemia (E78.2) Active confirmed Problem 29277915 Other chronic pa in (G89.29) Active confirmed Problem 57051251 Vitamin D deficiency (E55.9) Active confirmed Problem 065339767 BMI 37.0-37.9, adult (Z68.37) Active confirmed Problem 382074816 BMI 39.0-39.9,ad ult (Z68.39) Active confirmed Problem 40989309 Type 2 diabetes mellitus with hyperglycemia, without long-term current use of insulin (E11.65) Active confirmed Problem 698776294 Type 2 diabetes mellitus without complication, without long-term current use of insulin (E11.9) Active confirmed Problem 060963215 Mild intermitten t asthma, unspecified whether complicated (J45.20) Active confirmed Problem 922262132 Body mass index [BMI] 38.0-38.9, adult (Z68.38) Active confirmed Vital Signs Heart Rate 92 /min 11/10/2024 Respiratory Rate 16 /min 11/10/2024 Blood pressure diastolic 80 mm Hg 11/10/2024 Oximetry 96 % 11/10/2024 Height 67 in 11/10/2024 Blood pressure systolic 132 mm Hg 11/10/2024 Weight 241.5 lbs 11/10/2024 BMI 37.82 kg/m2 11/10/2024 Encounters Encounter Location Date Provider Diagnosis [facility] [place] [address] [place] [address] 08/30/2024 Marla [facility] [address] [place] [address] 08/30/2024 Marla Fritz Type 2 diabetes mellitus without complication, without long-term current use of insulin E11.9 [facility] [address] [place] [address] 03/05/2024 Marla Branchnes Type 2 diabetes mellitus without complication, without long-term current use of insulin E11.9 and BMI 39.0-39.9,adult Z68.39 [facility] [address] [place] [address] 11/10/2024 Maggie Rynski Nausea R11.0 ; Other specified disorders of teeth and supporting structures K08.89 ; Type 2 diabetes mellitus without complication, without long-term current use of insulin E11.9 ; Mild intermittent asthma, unspecified whether complicated J45.20 ; Vitamin D deficiency E55.9 ; Essential (primary) hypertension I10 and Hypothyroidism, unspecified E03.9 Assessments Encounter Date Diagnosis (ICD Code) Assessment Notes Treatment Notes Treatment Clinical Notes Section Notes 03/05/2024 Type 2 diabetes mellitus without complication, without long-term current use of insulin (ICD-10 - E11.9) A1c is improved but still high at 7.6 STOP metformin d/t GI side effects Start glipizide 11/10/2024 Nausea (ICD-10 - R11.0) - In office POCT UA and UHCG - Will check ketones on UA - Zofran PRN 11/10/2024 Other specified disorders of teeth and supporting structures (ICD-10 - K08.89) - Will treat with amoxicillin - Follow up with a dentist 08/30/2024 Type 2 diabetes mellitus without complication, without long-term current use of insulin (ICD-10 - E11.9) 03/05/2024 BMI 39.0-39.9,adult (ICD-10 - Z68.39) Keep working on dietary changes and increased activity to help with weight loss 11/10/2024 Type 2 diabetes mellitus without complication, [...] hormones levels. 11/10/2024 Other Plan Of Treatment Pending Test Test Name Order Date GLUCOSE - IN OFFICE 11/10/2024 LIPID PANEL (CHOL/TRIG/HDL/LDL) 11/11/19 25 MICROALBUMIN with ALB/CREAT RATIO, URINE (MALB)) 11/10/2024 VITAMIN D, 25 LEVEL (TOTAL) 11/10/2024 HEMOGLOBIN A1C - IN OFFICE 08/14/2023 HEMOGLOBIN A1C - IN OFFICE 11/10/2024 T4 FREE and TSH 11/10/2024 CMP (COMP MET SAUER) w/eGFR CKD-EPI 2024 CBC WITH DIFF 11/10/2024 Insurance Providers Payer Name Payer Address Payer Phone Subscriber Number Group Number Insured Name Patient Relationship to Insured Coverage Start Date Coverage End Date [employer] [address] [place] [address] [id number] Katherin Olvera Self - patient is the insured Medical (General) History Medical History History ICD Code Diabetes Asthma Irregular, heavy periods H/o low back pain COVID 04/18 Sinusitis, unspecified chronicity, unspe cified location J32.9 hyperlipidemia HTN Surgical History Surgery Date(Month/Year) colonoscopy 2010
[2025-01-18 13:27] LABS: Estimated Average Glucose 235 mg/dL; Glycohemoglobin A1C 9.8 % (4.5-6.2)
[2025-01-18 13:36] LABS: Thyroid Stimulating Hormone 2.182 uIU/mL (0.358-3.740)
[2025-01-18 13:41] LABS: HCG Quantitative <1 mIU/mL
[2025-01-18 13:43] LABS: Basophils Absolute Auto 0.1 10^3/uL (0.0-0.1); Basophils Percent Auto 0.6 % (0.2-2.0); Eosinophils Absolute Auto 0.3 10^3/uL (0.0-0.7); Eosinophils Percent Auto 3.4 % (0.9-7.0); Hematocrit 38.9 % (36.0-48.0); Hemoglobin 13.9 g/dL (12.0-16.0); Immature Granulocytes Abs Auto 0.06 10^3/uL (0.00-0.03); Immature Granulocytes Pct Auto 0.6 % (0.0-0.5); Lymphocytes Absolute Auto 2.2 10^3/uL (1.2-3.8); Lymphocytes Percent Auto 23.3 % (20.5-60.0); Mean Corpuscular HGB Conc 35.7 g/dL (29.9-35.2); Mean Corpuscular Hemoglobin 31.1 pg (26.7-34.0); Mean Platelet Volume 9.5 fL (9.5-13.5); Monocytes Absolute Auto 0.5 10^3/uL (0.3-0.8); Monocytes Percent Auto 5.2 % (1.7-12.0); Neutrophils Absolute Auto 6.4 10^3/uL (1.4-6.5); Neutrophils Percent Auto 66.9 % (43.0-75.0); Platelet Count 268 10^3/uL (150-450); Red Blood Count 4.47 10^6/uL (4.20-5.40); Red Cell Distribution Width 13.5 % (11.0-15.0); White Blood Count 9.6 10^3/uL (4.0-11.0)
[2025-01-18 13:51] LABS: Free T4 1.11 ng/dL (0.76-1.46)
[2025-01-19 04:14] LABS: FSH 6.7 mIU/mL (.); Luteinizing Hormone(LH) 7.3 mIU/mL (.); Prolactin 6.2 ng/mL (4.8-33.4)
[2025-01-21 12:09] LABS: DHEA, Serum 206 ng/dL (31-701)
[2025-01-22 02:09] LABS: Anti-Mullerian Hormone (AMH) 0.522 ng/mL (.)
== END 2025-01-18 12:49 | disposition home or self-care (01) ==
LOC: LAB 12:51
PROVIDERS: Family Provider Family Medicine; PCP Family Medicine; Visit Provider Obstetrics & Gynecology
DX: E28.2 Polycystic ovarian syndrome (principal); E07.9 Disorder of thyroid, unspecified; N97.0 Female infertility associated with anovulation; N92.6 Irregular menstruation, unspecified
CPT/HCPCS: 36415; 82397; 82626; 82627; 83001; 83002; 83036; 84146; 84439; 84443; 84702; 85025

== ENCOUNTER 2025-01-23 10:07 | Outpatient (OUT) | payer OTHER, SELFPAY ==
--- OUTSIDE RECORDS SUMMARY | 2024-08-30 09:27 | XMS_ITS ---
Author Organization The [facility] in [place] Address [address] [place] [address] Care Team Providers Care Telephone Exchange Operator Name Role Phone Marla Fritz Primary Care Provider REASON FOR VISIT Update Demographics - Personal Info Encounters Encounter Location Date Provider Diagnosis [facility] [address] [place] [address] 08/30/2024 Marla Fritz Plan Of Treatment Next Appt Details Provider Name:Marla Bishop es, 02/10/2025 09:15:00 AM, [address] [place], [address], Progress Notes * Katherin BERMEO RDOB:1990 (34 yo F)Acc No.[id number]:08/30/2024 Patient: Katherin CEBALLOS :1990 A ge:34 Y S ex:Female Address:[address] [place], [address] * true * Date: Generated for Printi ng/Faelfegog/eTransmitting on: 0 01/23/2025 10:09 AM EDT
--- OUTSIDE RECORDS SUMMARY | 2024-08-30 09:27 | XMS_ITS ---
Author Organization The [facility] in [place] Address [address] [place] [address] Care Team Providers Care Arch Support Technician Name Role Phone Marla Fritz Primary Care Provider REASON FOR VISIT New Refill Request Medications Medication SIG (Take, Route, Frequency, Duration) Notes Start Date End Date Status Levothyroxine Sodium 25 MCG 1 tablet in the morning on an empty stomach Orally Once a day for 30 days Active glipiZIDE 5 MG 1 tablet 30 minutes before breakfast Orally Once a day for 30 days 03/05/2024 Active Encounters Encounter Location Date Provider Diagnosis [facility] [address] [place] [address] 08/30/2024 Marla Fritz Type 2 diabetes mellitus without complication, without long-term current use of insulin E11.9 Assessments Encounter Date Diagnosis (ICD Code) Assessment Notes Treatment Notes Treatment Clinical Notes Section Notes 08/30/2024 Type 2 diabetes mellitus without complication, without long-term current use of insulin (ICD-10 - E11.9) Plan Of Treatment Medication Medication Name Sig Start Date Stop Date Notes Levothyroxine Sodium 25 MCG 1 tablet in the morning on an empty stomach Orally Once a day for 30 days glipiZIDE 5 MG 1 tablet 30 minutes before breakfast Orally Once a day for 30 days 03/05/2024 Next Appt Details Provider Name:Marla spring, 02/10/2025 09:15:00 AM, [address] [place], [address], Progress Notes * Katherin BERMEO RDOB:1990 (34 yo F)Acc No.[id number]:08/30/2024 Patient: Katherin CEBALLOS :1990 A ge:34 Y S ex:Female Address:[facility] [address] [facility] [address] * Refills Refill Levothyroxine Sodium Tablet, 25 MCG, Orally, 3, 1 tablet in the morning on an empty stomach, Once a day, 30 days, Refills=0 Refill glipiZIDE Tablet, 5 MG, Orally, 30, 1 tablet 30 minutes before breakfast, Once a day, 30 days, Refills=3 * true * Date: Generated for Stephani real/Tom/Aditiitting on: 0 01/23/2025 10:10 AM EDT
--- OUTSIDE RECORDS SUMMARY | 2024-11-10 05:45 | XMS_ITS ---
Author Organization The [facility] in [place] Address [address] [place] [address] Care Team Providers Care Malt House Loader Name Role Phone Marla Fritz Primary Care Provider [phone] Maggie Dover [phone] Results Component Value Reference Range Notes UA (URINALYSIS), COMPLETE (8 1000) - IN OFFICE (Not yet reviewed by provider) Interpretation:Entered in Error Performing Lab: Notes/Report: Entered in Error COLOR tipton YELLOW - DEB CLARITY cloudy CLEAR - CLEAR GLUCOSE 2+ NEG - NEG MG/DL PREG ([facility]), URINE - IN OFFI CE Reviewed date:11/10/2024 10:22:05 AM Interpretation: Performing Lab: Notes/Report: PREG ([facility]), URINE - IN OFFICE neg NEG - NEG Control Present yes UA DIP AUTO WO MICRO ([id number]) - IN OFFICE Reviewed date:11/10/2024 10:21:53 AM Interpretation: Performing Lab: Notes/Report: COLOR tipton YELLOW - DEB CLARITY cloudy CLEAR - CLEAR GLUCOSE, URINE 2+ NEG - NEG MG/DL BILIRUBIN, URINE neg NEG - NEG KETONES, URINE neg NEG - NEG MG/DL SPECIFIC GRAVITY 1.030 1.001 - 1.035 BLOOD, URINE neg NEG - NEG MG/DL PH, URINE 5.5 5.0 - 9.0 PROTEIN (ALB), URINE neg NEG - NEG MG/DL UROBILINOGEN, URINE 0.2 0.2 - 1.0 MG/DL NITRITE, URINE neg NEG - NEG ESTERASE neg NEG - NEG REASON FOR VISIT sick Medications Medication SIG (Take, Route, Frequency, Duration) Notes Start Date End Date Status Naproxen 500 MG 1 tablet with food or milk as needed Orally BID for 30 days 04/04/2022 Active Levothyroxine Sodium 25 MCG 1 tablet in the morning on an empty stomach Orally Once a day for 30 days Active Ventolin HFA 108 (90 Base) MCG/ACT 2 puffs Inhalation every 4 hrs prn cough for 30 days Active glipiZIDE 5 MG 1 tablet 30 minutes before breakfast Orally Once a day for 30 days 03/05/2024 Active metFORMIN HCl ER 500 MG 1 tablet with evening meal Orally BID for 90 days Not-Taking Ondansetron HCl 4 MG 1 tablet Orally every 8 hours as needed for nausea for 5 days orally dissolving tablet if available 11/10/2024 Active Cyclobenzaprine HCl 10 MG 1 tablet at bedtime as needed Orally Once a day for 20 days 05/01/2023 Unknown Amoxicillin 500 MG 1 capsule Orally every 8 hrs for 10 days 11/10/2024 Active Social History Tobacco Use: Social History Observation Description Date Details (start date - stop date) Never Smoker NA - NA Tobacco Use/Smoking Question Answer Notes Patient is a nonsmoker Vital Signs Weight 241.5 lbs 11/10/2024 Height 67 in 11/10/2024 Blood pressure systolic 132 mm Hg 11/11/19 25 Blood pressure diastolic 80 mm Hg 025 Heart Rate 92 /min 11/10/2024 Respiratory Rate 16 /min 11/10/2024 BMI 37.82 kg/m2 11/10/2024 Oximetry 96 % 11/10/2024 Encounters Encounter Location Date Provider Diagnosis [facility] [address] [place] [address] 11/10/2024 Maggie Stanislaw Nausea R11.0 ; Other specified disorders of teeth and supporting structures K08.89 ; Type 2 diabetes mellitus without complication, without long-term current use of insulin E11.9 ; Mild intermittent asthma, unspecified whether complicated J45.20 ; Vitamin D deficiency E55.9 ; Essential (primary) hypertension I10 and Hypothyroidism, unspecified E03.9 Assessments Encounter Date Diagnosis (ICD Code) Assessment Notes Treatment Notes Treatment Clinical Notes Section Notes 11/10/2024 Nausea (ICD-10 - R11.0) - In office POCT UA and UHCG - Will check ketones on UA - Zofran PRN 11/10/2024 Other specified disorders of teeth and supporting structures (ICD-10 - K08.89) - Will treat with amoxicillin - Follow up with a dentist 11/10/2024 Type 2 diabetes mellitus without complication, without long-term current use of insulin (ICD-10 - E11.9) - Will check a1c - + Glucose in urine - Negative Ketones - Will check in office blood sugar 11/10/2024 Mild intermittent asthma, unspecified whether complicated (ICD-10 - J45.20) Asthma is stable. Patient was instructed to use inhalers/medica tions regularly, avoid irritants and exposure to known triggers 11/10/2024 Vitamin D deficiency (ICD-10 - E55.9) - Will recheck labs 11/10/2024 Essential (primary) hypertension (ICD-10 - I10) Patient's blood pressures are generally stable. Recommend to continue with same medication(s) at the present time. Continue low salt diet and exercise. 11/10/2024 Hypothyroidism, unspecified (ICD-10 - E03.9) Continue current medications. Take them as instructed first thing in am. Do labs regularly every 6 months to monitor Thyroid hormones levels. 11/10/2024 Other Plan Of Treatment Medication Medication Name Sig Start Date Stop Date Notes Levothyroxine Sodium 25 MCG 1 tablet in the morning on an empty stomach Orally Once a day for 30 days Ondansetron HCl 4 MG 1 tablet Orally every 8 hours as needed for nausea for 5 days 11/10/2024 orally dissolving tablet if available Amoxicillin 500 MG 1 capsule Orally every 8 hrs for 10 days 11/10/2024 Treatment Notes Assessment Notes Nausea - In office POCT UA and CG - Will check ketones on UA - Zofran PRN Other specified disorders of teeth and supporting structures - Will treat with amoxicillin - Follow up with a dentist Type 2 diabetes mellitus wit hout complication, without long-term current use of insulin - Will check a1c - + Glucose in urine - Negative Ketones - Will check in office blood sugar Mild intermittent asthma, un specified whether complicated Asthma is stable. Patient was instructed to use inhalers/medications regularly, avoid irritants and exposure to known triggers Vitamin D deficiency - Will recheck labs Essential (primary) hypertension Patient 's blood pressures are generally stable. Recommend to continue with same medication(s) at the present time. Continue low salt diet and exercise. Hypothyroidism, unspecified Continue cur rent medications. Take them as instructed first thing in am. Do labs regularly every 6 months to monitor Thyroid hormones levels. Pending Test Test Name Order Date GLUCOSE - IN OFFICE 11/10/2024 LIPID PANEL (CHOL/TRIG/HDL/LDL) 11/11/19 25 MICROALBUMIN with ALB/CREAT RATIO, URINE (MALB)) 11/10/2024 VITAMIN D, 25 LEVEL (TOTAL) 11/10/2024 HEMOGLOBIN A1C - IN OFFICE 11/10/2024 T4 FREE and TSH 11/10/2024 CMP (COMP MET SAUER) w/eGFR CKD-EPI 2024 CBC WITH DIFF 11/10/2024 Next Appt Details Provider Name:Marla Bishop es, 02/10/2025 09:15:00 AM, [address] [place], [address], Progress Notes * Katherin BERMEO RDOB:1990 (34 yo F)Acc No.[id number]:11/10/2024 Established Patient: Khadijah CEBALLOSity R Provider: Kassi Dover :1990 A ge:34 Y S ex:Female Date:11/10/2024 Address:[facility] [address] [facility] Pcp:Marla Fritz Check In:09:33 AM ESTCheck O ut:10:22 AM EST Subjective: * Chief Complaints: * 1 . Sick. * HPI: G eneral: patient presents today for lightheadedness and nausea since saturday [employer] boss she states she also has a toothache but no other symptoms no fever - RM Patient is a 34 year old who presents today for not feeling well. She has had nausea since Saturday morning and had diarrhea last night. She is not certained if she is (maybe). LMP was Aug 2024 and she has irregular periods. She denies abdominal pain. She denies difficulty with urination. Reports chronic back pain. Denies recent sick contacts. Toothache has been off and on per patient. She has some ear pain on her right side. Reports it is her back tooth and it on the lower side of her face. She denies swelling. She reports chewing sometimes make it worse. Sensitive to cold. Since being home patient has been. * ROS: N egative unless noted in HPI. * Active Problem List E11.9 Type 2 diabetes shruti itus without complication, without long-term current use of insulin Modified On:08/26/2023 Status:confirmed J45.20 Mild intermittent as thma, unspecified whether complicated Modified On:08/26/2023 Status:confirmed G89.29 Other chronic pain Modified On:10/24/2022 Status:confirmed E55.9 Vitamin D deficiency Modified On:08/03/2021 Status:confirmed Z68.37 BMI 37.0-37.9, adult Modified On:09/15/2021 Status:confirmed E66.09 Other obesity due to excess calories Modified On:04/04/2022 Status:confirmed Z68.38 Body mass index [BMI ] 38.0-38.9, adult Modified On:05/01/2023 Status:confirmed Z68.39 BMI 39.0-39.9,adult Modified On:10/01/2022 Status:confirmed E11.65 Type 2 diabetes shruti itus with hyperglycemia, without long-term current use of insulin Modified On:10/01/2022 Status:confirmed I10 Essential (primary) hypertension Modified On:10/01/2022 Status:confirmed E78.2 Mixed hyperlipidemia Modified On:10/01/2022 Status:confirmed E66.01 Morbid (severe) obes ity due to excess calories Modified On:05/01/2023 Status:confirmed E11.65 Type 2 diabetes shruti itus with hyperglycemia Modified On:05/01/2023 Status:confirmed E03.9 Hypothyroidism, unsp ecified Modified On:12/04/2023 Status:confirmed * Medical History: D iabetes, Asthma, Irregular, heavy periods, H/o low back pain, COVID 04/18, Sinusitis, unspecified chronicity, unspecified location, Hyperlipidemia, HTN. * Surgical History: c olonoscopy 2010. * Family History: F ather: alive. M other: alive, diagnosed with Other malignant neoplasm of unspecified site. P aternal Grandfather: diagnosed with Other malignant neoplasm of unspecified site. P aternal Grandmother: diagnosed with Other malignant neoplasm of unspecified site. P aternal aunt: diagnosed with Other malignant neoplasm of unspecified site. Mom - ovarian cancer, Colon cancer, Lymphoma. * Social History: T obacco Use: T obacco Use/Smoking P atient is a n onsmoker * Medications: T aking glipiZIDE 5 MG Tablet 1 tablet 30 minutes before breakfast Orally Once a day , Taking Levothyroxine Sodium 25 MCG Tablet 1 tablet in the morning on an empty stomach Orally Once a day , Taking Naproxen 500 MG Tablet 1 tablet with food or milk as needed Orally BID , Taking Ventolin HFA(Albuterol Sulfate HFA) 108 (90 Base) MCG/ACT Aerosol Solution 2 puffs Inhalation every 4 hrs prn cough , Not-Taking/PRN metFORMIN HCl ER 500 MG Tablet Extended Release 24 Hour 1 tablet with evening meal Orally BID , Unknown Cyclobenzaprine HCl 10 MG Tablet 1 tablet at bedtime as needed Orally Once a day , Medication List reviewed and reconciled with the patient Objective: * Vitals: W t:241.5lbs, Ht: 67 in, BP:132/80mm Hg, HR:92/min, RR:16/min, BMI:37.82Index, Oxygen sat %:96%, Ht-cm: 170.18 cm, Wt-k.54 kg. * Examination: I M Physical Examination: General Appearance W ell developed, Well nourished, Alert, oriented, No apparent distress. Eyes N ormal lids, Normal Conjunctiva and Sclera. Ears G ross hearing test normal bilaterally. Oropharynx R ight lower molars + teeth decay. Neck N ormal Range of Motion, Trachea is midline. Respiratory B reath sounds are normal with no rales, rhonchi, or wheezes. Cardiovascular N ormal heart rate, Rhythm is regular, Normal S1 and S2 with no S3/S4, No gallop or clicks, No systolic or Diastolic murmurs. Gastrointestinal A bdomen non tender, No distention, No guarding, No abdominal masses, Bowel sound normal. Skin N o significant rash or lesions. Musculoskeletal N ormal Range of motion, Strength, and Tone, Normal Gait. Extrimeties P eripheral pulses are intact, No Edema. Neurological A lert and Oriented X3. Psychiatric A ppropiate Affect and Demeanor, Memory grossly intact, Psychomotor function normal, Thought and perseptions are normal, Normal speech pattern.? Assessment: * Assessment: 1. N ausea - R11.0 (Primary) 2 . O ther specified disorders of teeth and supporting structures - K08.89 3 . T ype 2 diabetes mellitus without complication, without long-term current use of insulin - E11.9 4 . M ild intermittent asthma, unspecified whether complicated - J45.20 5 . V itamin D deficiency - E55.9 6 . E ssential (primary) hypertension - I10 7 . H ypothyroidism, unspecified - E03.9 Plan: * Treatment: 2. O ther specified disorders of teeth and supporting structures Start Amoxicillin Capsule, 500 MG, 1 capsule, Orally, every 8 hrs, 10 days, 30 Capsule, Refills 0.? L AB: LIPID PANEL (CHOL/TRIG/HDL/LDL) L AB: MICROALBUMIN with ALB/CREAT RATIO, URINE (MALB)) L AB: VITAMIN D, 25 LEVEL (TOTAL) L AB: T4 FREE and TSH L AB: CMP (COMP MET SAUER) w/eGFR CKD-EPI L AB: CBC WITH DIFF Notes: - Will treat with amoxicillin - Follow up with a dentist 3. T ype 2 diabetes mellitus without complication, without long-term current use of insulin L AB: GLUCOSE - IN OFFICE L AB: LIPID PANEL (CHOL/TRIG/HDL/LDL) L AB: MICROALBUMIN with ALB/CREAT RATIO, URINE (MALB)) L AB: VITAMIN D, 25 LEVEL (TOTAL) L AB: HEMOGLOBIN A1C - IN OFFICE L AB: T4 FREE and TSH L AB: CMP (COMP MET SAUER) w/eGFR CKD-EPI L AB: CBC WITH DIFF L AB: UA DIP AUTO WO MICRO (21876) - IN OFFICE (Collection Date & Time - 11/10/2024) L AB: UA (URINALYSIS), COMPLETE (31259) - IN OFFICE (Order Cancelled) (Collection Date & Time - 11/10/2024) Notes: - Will check a1c - + Glucose in urine - Negative Ketones - Will check in office blood sugar 4. M ild intermittent asthma, unspecified whether complicated L AB: LIPID PANEL (CHOL/TRIG/HDL/LDL) L AB: MICROALBUMIN with ALB/CREAT RATIO, URINE (MALB)) L AB: VITAMIN D, 25 LEVEL (TOTAL) L AB: T4 FREE and TSH L AB: CMP (COMP MET SAUER) w/eGFR CKD-EPI L AB: CBC WITH DIFF Notes: Asthma is stable. Patient was instructed to use inhalers/medications regularly, avoid irritants and exposure to known triggers 5. V itamin D deficiency L AB: LIPID PANEL (CHOL/TRIG/HDL/LDL) L AB: MICROALBUMIN with ALB/CREAT RATIO, URINE (MALB)) L AB: VITAMIN D, 25 LEVEL (TOTAL) L AB: T4 FREE and TSH L AB: CMP (COMP MET SAUER) w/eGFR CKD-EPI L AB: CBC WITH DIFF Notes: - Will recheck labs 6. E ssential (primary) hypertension L AB: LIPID PANEL (CHOL/TRIG/HDL/LDL) L AB: MICROALBUMIN with ALB/CREAT RATIO, URINE (MALB)) L AB: VITAMIN D, 25 LEVEL (TOTAL) L AB: T4 FREE and TSH L AB: CMP (COMP MET SAUER) w/eGFR CKD-EPI L AB: CBC WITH DIFF Notes: Patient's blood pressures are generally stable. Recommend to continue with same medication(s) at the present time. Continue low salt diet and exercise. 7. H ypothyroidism, unspecified L AB: LIPID PANEL (CHOL/TRIG/HDL/LDL) L AB: MICROALBUMIN with ALB/CREAT RATIO, URINE (MALB)) L AB: VITAMIN D, 25 LEVEL (TOTAL) L AB: T4 FREE and TSH L AB: CMP (COMP MET SAUER) w/eGFR CKD-EPI L AB: CBC WITH DIFF Notes: Continue current medications. Take them as instructed first thing in am. Do labs regularly every 6 months to monitor Thyroid hormones levels. 8. O thers Refill Levothyroxine Sodium Tablet, 25 MCG, 1 tablet in the morning on an empty stomach, Orally, Once a day, 30 days, 3, Refills 0. * Labs: * L ab: UA (URINALYSIS), COMPLETE (11066) - IN OFFICE (Order Cancelled) (Collection Date & Time - 11/10/2024) E ntered in Error Value Reference Range C OLOR tipton YELLOW - DEB * C LARITY cloudy CLEAR - CLEAR * G LUCOSE 2+ NEG - NEG MG/DL ?Lab: PREG ([facility]), URINE - IN OFFICE (Collection Date & Time - 11/10/2024)* Value Reference Range P REG ([facility]), URINE - IN OFFICE neg NEG - NEG * C ontrol Present yes ?Lab: UA DIP AUTO WO MICRO ([id number]) - IN OFFICE (Collection Date & Time - 11/10/2024)* Value Reference Range C OLOR tipton YELLOW - DEB * C LARITY cloudy CLEAR - CLEAR * G LUCOSE, URINE 2+ NEG - NEG MG/DL * B ILIRUBIN, URINE neg NEG - NEG * K ETONES, URINE neg NEG - NEG MG/DL * S PECIFIC GRAVITY 1.030 1.001 - 1.035 * B LOOD, URINE neg NEG - NEG MG/DL * P H, URINE 5.5 5.0 - 9.0 * P ROTEIN (ALB), URINE neg NEG - NEG MG/DL * U ROBILINOGEN, URINE 0.2 0.2 - 1.0 MG/DL * N ITRITE, URINE neg NEG - NEG * E STERASE neg NEG - NEG * Procedure Codes: 8 1000 URINALYSIS, 17983 URINE TEST, 55797 HEMOGLOBIN; GLYCATED, Modifiers: QW , 79607 GLUCOSE;BLOOD,REGNT.STRIP, 58755 OFFICE/OTHER OUTPATIENTVISIT,EST,DETAILED, 03807 URINALYSIS;WO MICROSCOPY, Modifiers: QW , 72872 OFFICE/OTHER OUTPATIENT VISIT,EST,EXPANDED * * Electronically signed by Katia Dover , NET FINISHER, RAND BUTTING MACHINE OPERATOR.NET FINISHER.[id number] on 11/17/2024 at 09:05 AM EDT Sign off status: Completed Visit Status: C HK (Check Out) true * Provider: Kassi Dover Date: 0 11/10/2024 Generated for Stephani rela/Tom/eTransmitting on: 0 01/23/2025 10:10 AM EDT History and Physical Notes * HPI (History of Present Illness) Category Sub-Category Detail Notes Category Not es General Since being bruce e patient has been Examination Category Sub-Category Detail Notes Category Not es IM Physical Examination General Appearance Well developed, Well nourished, Alert, oriented, No apparent distress Eyes Normal lids, Normal Conjunctiva and Sclera Ears Gross hearing test n ormal bilaterally Neck Normal Range of [place] on, Trachea is midline Respiratory Breath sounds are no rmal with no rales, rhonchi, or wheezes Cardiovascular Normal heart rate, R hythm is regular, Normal S1 and S2 with no S3/S4, No gallop or clicks, No systolic or Diastolic murmurs Gastrointestinal Abdomen non tender, No distention, No guarding, No abdominal masses, Bowel sound normal Skin No significant rash or lesions Musculoskeletal Normal Range of cierra on, Strength, and Tone, Normal Gait Neurological Alert and Oriented X 3 Psychiatric Appropiate Affect an d Demeanor, Memory grossly intact, Psychomotor function normal, Thought and perseptions are normal, Normal speech pattern Extrimeties Peripheral pulses ar e intact, No Edema Oropharynx Right lower molars + teeth decay
--- OUTSIDE RECORDS SUMMARY | 2025-01-13 10:00 | XMS_ITS | Encounter Summary ---
Author Organization [facility] Address [address] [place] [address] Care Team Providers Care Hide Cleaner Name Role Phone Marla Fritz MD Primary Care Provider Source Comments In the event this information is protected by the Federal Confidentiality of Alcohol and Drug AbusePatient Records regulations: The Federal rules restrict any use of the information to criminally investigate or prosecute any alcohol or drug abuse patient.[facility] Reason for Visit * Reason Comments Family History Of Cancer Encounter Details Date Type Department Care Team (Latest Contact Info) Description 01/13/2025 10:00 AM EDT [facility] [address] [place] [address] [place], [place] [address] [place] [address] Family history of gene mutation (Primary Dx); Family history of colon cancer; Family history of ovarian cancer Social History Tobacco Use Types Packs/Day Years Used Date Smoking Tobacco: Never Assessed Area Deprivation Index Answer Date Marco A rded National Score (1-100), lower number is lower ri sk 81 01/13/2025 State Score (1-10), lower number is lower risk 7 01/13/2025 Data from: https://www.neigh borhoodatlas.[facility]/. Last address used for calculation [address] 01/13/2025 Comments Unknown Sex and Gender Information Value Date Recorded Sex Assigned at Not on file Legal Sex Female 11:47 AM EDT Gender Identity Not on file Sexual Orientation Not on file documented as of this encounter Progress Notes * [place], - 01/13/2025 10:09 AM EDT Images from the original note were not included. [facility] Department of Medical Genetics Consultation Note Genetic Counselor: [place], [facility] Patient: Katherin Olvera This visit was conducted via [employer]. I have communicated my name and active licensure. The patient's identity and physical location were verified at the time of this visit. Either the patient or their legal territory service representative has been informed of the risks and benefits of -- and alternatives to -- treatment through a remote evaluation and consents to proceed with the evaluation remotely. HIGH LEVEL SUMMARY: The patient's family history is significant for Echevarria Syndrome and CDKN2A- associated cancer risk. The patient has a 50% risk of having the familial MLH1 mutation as well as a 50% risk of having thefamilial CDKN2A mutation.. The patient provided informed consent for Multi-Cancer panel through [facility]. Results are expected in 2 weeks from the time of sample collection. IDENTIFICATION AND CHIEF COMPLAINT: Dr. Marla Fritz requested a consultation for genetic counseling and risk assessment for Katherin Olvera, a 34 year old female, for discussion of her family history of Echevarria syndrome. She presents to clinic today to discuss the possibility of a genetic predisposition to cancer, and to further clarify her risks, as well as her family members' risks for cancer. HISTORY OF PRESENT ILLNESS: Katherin Olvera is a 34 year old female with no personal history of cancer. As noted in the family history section, the patient has a family history of Echevarria Syndrome as well as a CDKN2A mutation. CANCER SURVEILLANCE HISTORY: Mammograms: No Breast MRI's: No Breast Biopsies: N/A Colonoscopy: Yes / 2010 EGD: No GI Polyps: No Dermatology: No Uterus Intact: Yes Ovaries Intact: Yes FAMILY HISTORY: We obtained a detailed, 4-generation family history. Significant diagnoses are listed below: Mother: colon cancer at 50, ovarian cancer in her 40's, lymphoma in her 50s, colon cancer again at 64, Echevarria syndrome (MLH1 pathogenic variant) and CDKN2A pathogenic variant 2 brothers no genetic testing Maternal grandmother: colon cancer No maternal aunts or uncles No known medical history for paternal side of the family GENETIC COUNSELING RISK ASSESSMENT, DISCUSSION, AND SUGGESTED FOLLOW UP: We reviewed the natural history and genetic etiology of Echevarria Syndrome as well as UEYU0V-fjurqjdtpbzchwpc risk. The patient has a 50% chance of having the same MLH1 mutation as well as a separate 50% chance of have the same CDKN2A mutation that was identified in her mother. We discussed that identification of either or both family specific mutations will help her care providers tailor the patient's medical management. If a mutation is detected, the patient will be referred back to the referring provider and to any additional appropriate care providers to discuss the re levant options. If neither familial mutation is found in the patient, they are a true negative for the familial mutation. Cancer surveillance options would be discussed for the patient according to the [place] [employer] guidelines. In either case, the patient will be referred back to her care providers for discussions of management. Given the patient's unknown paternal family history, she was offered the option expand her testing to include the Multi-Cancer panel through [facility]. After considering the risks, benefits, and limitations, the patient provided informed consent for the following testing: Multi-Cancer panel through [facility]. The Multi-Cancer Panel includes the following 70 genes: AIP, ALK, APC, STEFAN, AXIN2, BAP1, BARD1, BLM, BMPR1A, BRCA1, BRCA2, BRIP1, CDC73, CDH1, CDK4, CDKN1B, CDKN2A, CHEK2, CTNNA1, DICER1, EGFR, EPCAM, FH, FLCN, GREM1, HOXB13, KIT, LZTR1, MAX, MBD4, MEN1, MET, MITF, MLH1, MSH2, MSH3, MSH6, MUTYH, NF1, NF2, NTHL1, PALB2, PDGFRA, PMS2, POLD1, POLE, POT1, CEHYM7X, PTCH1, PTEN, RAD51C, RAD51D, RB1, RET, SDHA, SDHAF2, SDHB, SDHC, SDHD, SMAD4, SMARCA4, SMARCB1, SMARCE1, STK11, SUFU, PLKX604, TP53, TSC1, TSC2, VHL The Multi-Cancer panel looks at genes associated with cancers of the breast, gynecologic tract (ovarian, uterine/endometrial), gastrointestinal system (colorectal, gastric, pancreatic), endocrine glands (thyroid, parathyroid, pituitary, adrenal glands), genitourinary tract (renal/urinary tract, prostate), skin (melanoma, basal cell carcinoma), and brain/nervous system. We discussed that an NGS panel can rarely result in an unexpected finding which may or may not be related to the presenting phenotype. We discussed the Genetic Information Nondiscrimination Act (SCOTT) protects individuals from being discriminated against for health insurance or employment based on their genetic testing results. GINAdoes not apply to life insurance, [place] health [place] care insurance, or disability insurance. Per the patient's request, we will contact her by Calesterhart or telephone to discuss these results. A follow up genetic counseling visit will be scheduled if requested. I spent a total of 35 minutes on the date of the service, which included preparing to see the patient, completing clinical documentation, obtaining and/or reviewing separately obtained history, counseling and educating the patient/family/caregiver, ordering tests, communicating with other HCPs (not separately reported), independently interpreting results (not separately reported), communicating results to the patient/family/caregiver, and care coordination (not separately reported). This plan is being carried out under the oversight of Dr. Hellen Fishman. This note will also be sent to the referring provider via the electronic medical record. [place] MS, [facility] Licensed, Certified Genetic Counselor [facility] CC: Idania Fishman CC BY MAIL: Dr. Marla Fritz documented in this encounter Plan of Treatment Not on file documented as of this encounter Results * [facility] HEREDITARY DIAGNOSTIC CANCER PANEL (01/13/2025 10:42 AM EDT) [facility] Test Performed [facility] Multi-Cancer Panel 01/19/2025 4:23 AM EDT [facility] About Test This diagnostic test evaluates 70 gene(s) for variants (genetic changes) that are associated with genetic disorders. Diagnostic genetic testing, when combined with family history and other medical results, may provide information to clarify individual risk, support a clinical diagnosis, and assist with the development of a personalized treatment and management strategy. 01/19/2025 4:23 AM EDT [facility] GENETIC ANALYSIS OVERALL INTERPRETATION Negative 01/19/2025 4:23 AM EDT [facility] Tested Genes AIP (NM_003977.3), ALK (NM_004304.4), APC (NM_000038.5), STEFAN (NM_000051.3), AXIN2 (NM_004655.3), BAP1 (NM_004656.3), BARD1 (NM_000465.3), BLM (NM_000057.3), BMPR1A (NM_004329.2), BRCA1 (NM_007294.3), BRCA2 (NM_000059.3), BRIP1 (NM_032043.2), CDC73 (NM_024529.4), CDH1 (NM_004360.3), CDK4 (NM_000075.3), CDKN1B (NM_004064.4), CDKN2A (p14ARF) (NM_058195.3), CDKN2A (z20TPW3a) (NM_000077.4), CHEK2 (NM_007194.3), CTNNA1 (NM_001903.3), DICER1 (NM_177438.2), EGFR (NM_005228.3), EPCAM (NM_002354.2), FH (NM_000143.3), FLCN (NM_144997.5), GREM1 (NM_013372.6), HOXB13 (NM_006361.5), KIT (NM_000222.2), LZTR1 (NM_006767.3), MAX (NM_002382.4), MBD4 (NM_003925.2), MEN1 (NM_130799.2), MET (NM_001127500.1) , MITF (NM_000248.3), MLH1 (NM_000249.3), MSH2 (NM_000251.2), MSH3 (NM_002439.4), MSH6 (NM_000179.2), MUTYH (NM_001128425.1) , NF1 (NM_000267.3), NF2 (NM_000268.3), NTHL1 (NM_002528.6), PALB2 (NM_024675.3), PDGFRA (NM_006206.4), PMS2 (NM_000535.5), POLD1 (NM_002691.3), POLE (NM_006231.3), POT1 (NM_015450.2), YETIX4C (NM_002734.4), PTCH1 (NM_000264.3), PTEN (NM_000314.4), RAD51C (NM_058216.2), RAD51D (NM_002878.3), RB1 (NM_000321.2), RET (NM_020975.4), SDHA (NM_004168.3), SDHAF2 (NM_017841.2), SDHB (NM_003000.2), SDHC (NM_003001.3), SDHD (NM_003002.3), SMAD4 (NM_005359.5), SMARCA4 (NM_001128849.1) , SMARCB1 (NM_003073.3), SMARCE1 (NM_003079.4), STK11 (NM_000455.4), SUFU (NM_016169.3), FYXB842 (NM_017849.3), TP53 (NM_000546.5), TSC1 (NM_000368.4), TSC2 (NM_000548.3), VHL (NM_000551.3) This table represents a complete list of genes analyzed for this individual, including the relevant gene transcript(s). If more than one transcript is listed for a single gene, variants were reported using the first transcript listed unless otherwise indicated in the report. An asterisk (*) indicates that this gene has a limitation. Please see the Limitations section for details. Results are negative unless otherwise indicated in the report. Benign and Likely Benign variants are not included in this report and in specific scenarios variants of uncertain significance in the requisitioned gene(s) may not be included in this report. 01/19/2025 4:23 AM EDT [facility] Additional Information For additional information related to the methods and limitations of this testing, please see the PDF report 01/19/2025 4:23 AM EDT [facility] Blood Venipuncture / Unknown 01/13/2025 10:42 AM EDT 01/13/2025 10:42 AM EDT us Hellen Fishman MD, PhD LABORATORY Final R esult Performing Organization Address City/State/[facility] Co de Phone Number [facility] [address] [place] [address], documented in this encounter Visit Diagnoses Diagnosis Family history of gene mutation- Primary Family history of colon cancer Family history of malignant neoplasm of gastrointestinal tract Family history of ovarian cancer Family history of malignant neoplasm of ovary documented in this encounter Care Teams Hide Cleaner Relationship Specialty Start Date End Date Marla Fritz MD [address] [place] [phone] PCP - General Family Medicine 01/04/25 documented as of this encounter
--- OUTSIDE RECORDS SUMMARY | 2025-01-13 10:45 | XMS_ITS | Encounter Summary ---
Author Organization [facility] Address [address] [place] [address] Care Team Providers Care Rotary Shear Worker Helper Name Role Phone Marla Fritz MD Primary Care Provider [phone]- [phone] Source Comments In the event this information is protected by the Federal Confidentiality of Alcohol and Drug AbusePatient Records regulations: The Federal rules restrict any use of the information to criminally investigate or prosecute any alcohol or drug abuse patient.[facility] Encounter Details Date Type Department Care Team (Late st Contact Info) Description 01/13/2025 10:45 AM EDT Office Visit [facility] [address] [place] [address] [place] [address] Family history of gene mutation; Family history of colon cancer; Family history of ovarian cancer Social History Tobacco Use Types Packs/Day Years Used Date Smoking Tobacco: Never Assessed Area Deprivation Index Answer Date Marco A rded National Score (1-100), lower number is lower ri sk 81 01/13/2025 State Score (1-10), lower number is lower risk 7 01/13/2025 Data from: https://www.neigh borhoodatlas.medicine.[facility].edu/. Last address used for calculation [address] 01/13/2025 Comments Unknown Sex and Gender Information Value Date Recorded Sex Assigned at Not on file Legal Sex Female 11:47 AM EDT Gender Identity Not on file Sexual Orientation Not on file documented as of this encounter Plan of Treatment Not on file documented as of this encounter Procedures Procedure Name Priority Date/Time Associated Diagnosis Comments [facility] HEREDITARY DIAGNOSTIC CANCER PANEL Routine 01/13/2025 10:42 AM EDT Family history of gene mutation Family history of colon cancer Family history of ovarian cancer documented in this encounter Results * [facility] HEREDITARY [...] (NM_000075.3), CDKN1B (NM_004064.4), CDKN2A (p14ARF) (NM_058195.3), CDKN2A (k38KTA9h) (NM_000077.4), CHEK2 (NM_007194.3), CTNNA1 (NM_001903.3), DICER1 (NM_177438.2), EGFR (NM_005228.3), EPCAM (NM_002354.2), FH (NM_000143.3), FLCN (NM_144997.5), GREM1 (NM_013372.6), HOXB13 (NM_006361.5), KIT (NM_000222.2), LZTR1 (NM_006767.3), MAX (NM_002382.4), MBD4 (NM_003925.2), MEN1 (NM_130799.2), MET (NM_001127500.1) , MITF (NM_000248.3), MLH1 (NM_000249.3), MSH2 (NM_000251.2), MSH3 (NM_002439.4), MSH6 (NM_000179.2), MUTYH (NM_001128425.1) , NF1 (NM_000267.3), NF2 (NM_000268.3), NTHL1 (NM_002528.6), PALB2 (NM_024675.3), PDGFRA (NM_006206.4), PMS2 (NM_000535.5), POLD1 (NM_002691.3), POLE (NM_006231.3), POT1 (NM_015450.2), IUXKV6M (NM_002734.4), PTCH1 (NM_000264.3), PTEN (NM_000314.4), RAD51C (NM_058216.2), RAD51D (NM_002878.3), RB1 (NM_000321.2), RET (NM_020975.4), SDHA (NM_004168.3), SDHAF2 (NM_017841.2), SDHB (NM_003000.2), SDHC (NM_003001.3), SDHD (NM_003002.3), SMAD4 (NM_005359.5), SMARCA4 (NM_001128849.1) , SMARCB1 (NM_003073.3), SMARCE1 (NM_003079.4), STK11 (NM_000455.4), SUFU (NM_016169.3), NTTA157 (NM_017849.3), TP53 (NM_000546.5), TSC1 (NM_000368.4), TSC2 (NM_000548.3), [...] LABORATORY Final R esult Performing Organization Address City/State/[facility] de Phone Number [email or web address] [address] documented in this encounter Visit Diagnoses Diagnosis Family history of gene mutation Family history of colon cancer Family history of malignant neoplasm of gastrointestinal tract Family history of ovarian cancer Family history of malignant neoplasm of ovary documented in this encounter Care Teams Rotary Shear Worker Helper Relationship Specialty Start Date End Date Marla Fritz MD [address] [place] [phone] PCP - General Family Medicine 01/04/25 documented as of this encounter
--- OUTSIDE RECORDS SUMMARY | 2025-01-18 11:10 | XMS_ITS | Encounter Summary ---
Author Organization [facility] Address [address] [place] [address] Care Team Providers Care Rotary Derrick Operator Name Role Phone Marla Fritz MD Primary Care Provider + [phone] Reason for Visit * Reason Comments Fertility Encounter Details Date Type Department Care Team (Late st Contact Info) Description 01/18/2025 11:10 AM EDT Office Visit [facility] [address] [facility] [place] [phone] Enoc Gusman, DO [address] [facility] [address] [place], [place] [id number] PCOS (polycystic ovarian syndrome); Thyroid disease ; Anovulation; Irregular periods/menstrual cycles Social History Tobacco Use Types Packs/Day Years Used Date Smoking Tobacco: Never Alcohol Use Standard Drinks/Week Comments Yes 0 (1 standard drink = 0.6 oz pure alcohol) Caffeine intake: 2-3 cups per day AUDIT-C Answer Date Recorded Q1: How often do you have a drink containing alc ohol? Monthly or less 05/21/2023 Q2: How many drinks containi ng alcohol do you have on a typical day when you are drinking? 1 or 2 05/21/2023 Frequency of Binge Drinking Not on file 04/29 Comments No Sex and Gender Information Value Date Recorded Sex Assigned at Female 02/22/2023 11:11 AM EDT Legal Sex Female 8:00 PM EDT Gender Identity Female 10/10/2022 8:00 PM EDT Sexual Orientation Straight 02/22/2023 11 :11 AM EDT documented as of this encounter Last Filed Vital Signs Vital Sign Reading Time Taken Comments Blood Pressure 146/90 01/18/2025 11:19 AM EDT Pulse - - Temperature - - Respiratory Rate - - Oxygen Saturation - - Inhaled Oxygen Concentration - - Weight 110 kg (243 lb 8 oz) 01/18/2025 11:19 AM EDT Height 170.2 cm (5' 7 ) 01/18/2025 11:19 AM EDT Body Mass Index 38.14 01/18/2025 11:19 AM EDT documented in this encounter Progress Notes * Sindy Ortez LPN - 01/18/2025 11:10 AM EDT Reason for Appointment: Patient ID: Katherin Olvera is a 34 y.o. female who presents for Fertility Patient presents today for Consult appointment. MEDICATIONS Current Outpatient Medications Medication Instructions glipiZIDE (GLUCOTROL) 5 mg, 2 times daily before meals levothyroxine (SYNTHROID) 25 mcg, Oral, Daily before breakfast Ventolin HFA 108 (90 Base) MCG/ACT inhaler 2 puffs Inhalation every 4 hrs prn cough for 30 days ALLERGIES No Known Allergies PROBLEMS Active Ambulatory Problems Diagnosis Date Noted No Active Ambulatory Problems Resolved Ambulatory Problems Diagnosis Date Noted No Resolved Ambulatory Problems Past Medical History: Diagnosis Date Asthma (HCC) Diabetes (HCC) 09/2017 Irregular periods HISTORY PAST MEDICAL HISTORY SOCIAL HISTORY Past Medical History: Diagnosis Date Asthma (HCC) Diabetes (HCC) 09/2017 Irregular periods Social History Tobacco Use Smoking status: Never Smokeless tobacco: Not on file Substance Use Topics Alcohol use: Yes Comment: Caffeine intake: 2-3 cups per day Drug use: Never FAMILY HISTORY Family History Problem Relation Name Age of Onset Cancer Mother ovarian, colon Lymphoma Mother Stroke Mother 2023 Bipolar disorder Brother ADD / ADHD Brother Leukemia Mother's Sister Diabetes Maternal Grandmother Hypothyroidism Maternal Grandmother Colon cancer Maternal Grandmother Breast cancer Maternal Grandmother SURGICAL HISTORY Past Surgical History: Procedure Laterality Date COLONOSCOPY 2009 COLPOSCOPY 05/2017 VIET 1 MOUTH SURGERY 2012 REVIEW OF SYSTEMS Review of Systems: Review of Systems Constitutional: Negative. HENT: Negative. Eyes: Negative. Respiratory: Negative. Cardiovascular: Negative. Gastrointestinal: Negative. Genitourinary: Negative. Musculoskeletal: Negative. Skin: Negative. Neurological: Negative. All other systems reviewed and are negative. Hematological: Negative. Endocrine: Negative. Allergic/Immunologic: Negative. OBJECTIVE Objective: Physical Exam Constitutional: Appearance: Normal appearance. She is well-developed. Cardiovascular: Rate and Rhythm: Normal rate and regular rhythm. Pulmonary: Effort: Pulmonary effort is normal. Breath sounds: Normal breath sounds. Abdominal: General: Bowel sounds are normal. There is no distension. Palpations: Abdomen is soft. Tenderness: There is no abdominal tenderness. There is no guarding or rebound. Musculoskeletal: General: No swelling. Normal range of motion. Right lower leg: No edema. Left lower leg: No edema. Neurological: Mental Status: She is alert and oriented to person, place, and time. Skin: General: Skin is warm and dry. Psychiatric: Mood and Affect: Mood normal. Behavior: Behavior normal. Vitals and nursing note reviewed. Exam conducted with a accounting lecturer present. Vitals: Estimated body mass index is 38.14 kg/m?? as calculated from the following: Height as of this encounter: 5' 7 . Weight as of this encounter: 243 lb 8 oz. BP: 146/90 No LMP recorded. ASSESSMENT & PLAN ICD-10-CM 1. PCOS (polycystic ovarian syndrome) E28.2 hCG, quantitative, TSH T4, free CBC and differential Follicle stimulating hormone Luteinizing hormone Hemoglobin A1c DHEA-sulfate DHEA US Pelvis w/ TV Antimullerian hormone (AMH) Prolactin DHEA Antimullerian hormone (AMH) 2. Thyroid disease E07.9 hCG, quantitative, TSH T4, free CBC and differential Follicle stimulating hormone Luteinizing hormone Hemoglobin A1c DHEA-sulfate DHEA US Pelvis w/ TV Antimullerian hormone (AMH) Prolactin DHEA Antimullerian hormone (AMH) 3. Anovulation N97.0 hCG, quantitative, TSH T4, free CBC and differential Follicle stimulating hormone Luteinizing hormone Hemoglobin A1c DHEA-sulfate DHEA US Pelvis w/ TV Antimullerian hormone (AMH) Prolactin DHEA Antimullerian hormone (AMH) 4. Irregular periods/menstrual cycles N92.6 hCG, quantitative, TSH T4, free CBC and differential Follicle stimulating hormone Luteinizing hormone Hemoglobin A1c DHEA-sulfate DHEA US Pelvis w/ TV Antimullerian hormone (AMH) Prolactin DHEA Antimullerian hormone (AMH) Patient presents today to discuss fertility planning. Patient stated that she has been on OCP and NuvaRing in the past, but has been trying to conceive for the past 5 years. Patient stated that she has irregular cycles. Patient voiced that her partner has children and did not have a previous issue conceiving. Discussed lab work and ultrasound with patient and patient desires to have semen analysis supplies/orders for spouse (Anjum Olvera : 04/07/1980), lab work and ultrasound to be done. Patient will also start on Metformin. Patient to get labs drawn and when negative HCG is received then Provera 10mg x14 days will be sent to pharmacy. Patient given handout with direct number to front office associate for when cycle starts, so that Femara 2.5mg can be called into pharmacy. Patient will setup fertility follow up with Dr. Gusman in 4 months if not already conceived to then discuss next steps. Documented by Sindy Ortez LPN on behalf of: Enoc Gusman DO 1:51pm Patient called office and LMOM that she had her labs drawn. 5:26pm Called patient and LMOM that HCG was negative and that Provera would be called into pharmacy. If patient does not have withdrawal bleeding 5 days after completing medication she is to call office. --ss documented in this encounter Miscellaneous Notes * Addendum Note - Sindy Ortez LPN - 01/18/2025 11:10 AM EDTAddended by: SINDY ORTEZ on: 01/18/2025 05:27 PM Modules accepted: Orders documented in this encounter Plan of Treatment Upcoming Encounters Date Type Department Care Team (Late st Contact Info) Description 02/02/2025 10:00 AM EDT Office Visit [facility] [address] [place] [address] Yadi Mathis PA [address] [place] [address] 05/18/2025 8:40 AM EDT Office Visit [facility] [address] [facility] [place] [address] Enoc Gusman, DO [address] [place] [address] [place] [address] Scheduled Orders Name Type Priority Associated Diagnoses Orde r Schedule hCG, quantitative, Lab Routine PCOS (polycystic ovarian syndrome) Thyroid disease Anovulation Irregular periods/menstrual cycles Ordered: 01/18/2025 TSH Lab Routine PCOS (polycystic ovarian syndrome) Thyroid disease Anovulation Irregular periods/menstrual cycles Ordered: 01/18/2025 T4, free Lab Routine PCOS (polycystic ovarian syndrome) Thyroid disease Anovulation Irregular periods/menstrual cycles Ordered: 01/18/2025 CBC and differential Lab Routine PCOS (polycystic ovarian syndrome) Thyroid disease Anovulation Irregular periods/menstrual cycles Ordered: 01/18/2025 Follicle stimulating hormone Lab Routine PCOS (polycystic ovarian syndrome) Thyroid disease Anovulation Irregular periods/menstrual cycles Ordered: 01/18/2025 Luteinizing hormone Lab Routine PCOS (polycystic ovarian syndrome) Thyroid disease Anovulation Irregular periods/menstrual cycles Ordered: 01/18/2025 Hemoglobin A1c Lab Routine PCOS (polycystic ovarian syndrome) Thyroid disease Anovulation Irregular periods/menstrual cycles Ordered: 01/18/2025 DHEA-sulfate Lab Routine PCOS (polycystic ovarian syndrome) Thyroid disease Anovulation Irregular periods/menstrual cycles Ordered: 01/18/2025 DHEA Lab Routine PCOS (polycystic ovarian syndrome) Thyroid disease Anovulation Irregular periods/menstrual cycles Expected: 01/18/2025 (Approximate), Expires: 01/18/2026 US Pelvis w/ TV Imaging Routine PCOS (polycystic ovarian syndrome) Thyroid disease Anovulation Irregular periods/menstrual cycles Expected: 01/18/2025, Expires: 01/18/2026 Antimullerian hormone (AMH) Lab Routine PCOS (polycystic ovarian syndrome) Thyroid disease Anovulation Irregular periods/menstrual cycles Expected: 01/18/2025 (Approximate), Expires: 01/18/2026 Prolactin Lab Routine PCOS (polycystic ovarian syndrome) Thyroid disease Anovulation Irregular periods/menstrual cycles Ordered: 01/18/2025 documented as of this encounter Visit Diagnoses Diagnosis PCOS (polycystic ovarian syndrome) Polycystic ovaries Thyroid disease Unspecified disorder of thyroid Anovulation Female infertility associated with anovulation Irregular periods/menstrual cycles documented in this encounter Care Teams Rotary Derrick Operator Relationship Specialty Start Date End Date Marla Fritz MD [address] [place] [address] PCP - General Family Medicine 02/22/23 documented as of this encounter
--- NOTE | 2025-01-23 | US_ITS ---
The [address] [address] Patient Name: MALLORY BERMEO MRN: [id number] date: 1990 Sex: F Assigned Patient Location: [place] Current Patient Location: [place] Accession/Order Number: [id number] Exam Date: 01/23/2025 17:55 Report Date: 01/23/2025 18:03 At the request of: PARADISE HAMPTON DO Procedure: US pelvis w/ transvaginal Transabdominal and transvaginal pelvic ultrasound INDICATION: Polycystic ovarian disease, and infertility for 5 years COMPARISON: 04/22/2023 FINDINGS: Uterus anteverted 7.2 x 3.6 x 4.6 cm. Endometrium 5 mm appear unremarkable. Right left ovaries unremarkable in size measuring 5.0 x 2.4 x 2.7 cm and 5.1 x 2.2 x 2.3 cm respectively. Bilateral ovarian follicles. Right ovarian cyst 2.4 x 2.0 x 1.7 cm in size. Largest left ovarian follicle measuring 1.8 x 1.5 x 1.3 cm size. Unremarkable Doppler arterial and venous vascular flow both ovaries US/US pelvis w/ transvaginal IMPRESSION: Physiologic changes noted with bilateral follicles largest on the right measuring 2.4 x 2.0 x 1.7 cm in size Impression dictated by: Alex Zabala M.D. 01/23/2025 6:03 PM Dictation Location: [place] [address] Electronically authenticated by: [id number] Y Date: 01/23/2025 18:03
--- OUTSIDE RECORDS SUMMARY | 2025-01-23 10:09 | XMS_ITS | CCD ---
Author Organization [facility] Care Team Providers Care Histopathology Technician Name Role Phone ANGY FRITZ Primary Care Unavailable ERENDIRA PEREZ Attending Unavailable RENUKA REED Referring Unavailable ANGY FRITZ Primary Care Unavailable Angy Fritz MD Primary Care Provider PARADISE GUSMAN Attending Unavailable Angy Fritz MD Primary Care Provider ANGY FRITZ Primary Care Unavailable ASHOK SHI Attending Unavailable ANGY FRITZ Primary Care Unavailable Medications Current Medications Medication Drug Class(es) Dates Sig (Normalized) Sig (Original) [id number] 200 actuat albuterol 0.09 mg/actuat metered dose inhaler (4 sources) beta2-Adrenergic Agonist Start: 02-05-2010 take 2 puff(s) by inhalation every four hours as needed for cough Ventolin HFA 108 (90 Base) MCG/ACT inhaler 2 puffs Inhalation every 4 hrs prn cough for 30 days 02/05/2010 Active glipiZIDE 5 mg oral tablet (3 sources) Sulfonylurea take 1 tablet by mouth in the morning glipiZIDE (Glucotrol) 5 MG tablet Take 5 mg by mouth in the morning and 5 mg in the evening. Take before meals. Active levothyroxine sodium 0.025 mg oral tablet (4 sources) l-Thyroxine Start: 04-23-2023 take 1 tablet by mouth before mealtime levothyroxine (Synthroid) 25 MCG tablet Indications: Thyroid disease Take 1 tablet (25 mcg) by mouth in the morning. Take before meals. 30 tablet 11 04/23/2023 Active 24 hr metFORMIN hydrochloride 500 mg extended release oral tablet (6 sources) Biguanide Start: 01-18-2025 End: 02-17-2025 take 1 tablet by mouth every twenty-four hours at mealtime metFORMIN XR (Glucophage-XR) 500 MG 24 hr tablet Indications: PCOS (polycystic ovarian syndrome) , Anovulation , Irregular periods/menstrual cycles Take 1 tablet (500 mg) by mouth in the evening. Take with meals Do not crush, chew, or split. 30 tablet 11 01/18/2025 02/17/2025 Active End: 01-18-2025 take 1 tablet by mouth once daily at dinner metFORMIN XR (Glucophage-XR) 500 MG 24 hr tablet TAKE 1 TABLET BY MOUTH ONCE DAILY WITH EVENING MEAL 01/18/2025 Discontinued Problems Active Problems Problem Classification Problem Date Documented Da te Episodic/Chronic Asthma (1 source) Mild intermittent asthma, uncomplicated; Translations: [Mild intermittent asthma, uncomplicated] Onset: 11-28-2024 Chronic Diabetes mellitus without complication (1 source) Type 2 diabetes mellitus without complications; Translations: [Type 2 diabetes mellitus without complications] Onset: 11-28-2024 Chronic Disorders of teeth and jaw (1 source) Other specified disorders of teeth and supporting structures; Translations: [Other specified disorders of teeth and supporting structures] Onset: 11-28-2024 Episodic Essential hypertension (1 source) Essential (primary) hypertension; Translations: [Essential (primary) hypertension] Onset: 11-28-2024 Chronic Female infertility (2 sources) Anovulation; Translations: [Female infertility associated with anovulation] 01-18-2025 Chronic Menstrual disorders (2 sources) Irregular periods; Translations: [Irregular menstruation, unspecified] 01-18-2025 Chronic Nausea and vomiting (1 source) Nausea; Translations: [Nausea] Onset: 11-28-2024 Episodic Nutritional deficiencies (1 source) Vitamin D deficiency, unspecified; Translations: [Vitamin D deficiency, unspecified] Onset: 11-28-2024 Chronic Other endocrine disorders (2 sources) Polycystic ovary syndrome; Translations: [Polycystic ovarian syndrome] 01-18-2025 Chronic Residual codes; unclassified (1 source) Family history of gene mutation; Translations: [Family history of carrier of genetic disease] 01-13-2025 Episodic Residual codes; unclassified (1 source) Family history of cancer of colon; Translations: [Family history of malignant neoplasm of digestive organs] 01-13-2025 Episodic Residual codes; unclassified (1 source) Family history of malignant neoplasm of ovary; Translations: [Family history of malignant neoplasm of ovary] 01-13-2025 Episodic Residual codes; unclassified (1 source) Family history of carrier of genetic disease; Translations: [Family history of gene mutation] Onset: 01-13-2025 Episodic Residual codes; unclassified (1 source) Family history of malignant neoplasm of digestive organs; Translations: [Family history of colon cancer] Onset: 01-13-2025 Episodic Residual codes; unclassified (1 source) Family history of malignant neoplasm of ovary; Translations: [Family history of ovarian cancer] Onset: 01-13-2025 Episodic Thyroid disorders (1 source) Hypothyroidism, unspecified; Translations: [Hypothyroidism, unspecified] Onset: 11-28-2024 Chronic Thyroid disorders (2 sources) Disorder of thyroid gland; Translations: [Disorder of thyroid, unspecified] 01-18-2025 Episodic Past or Other Problems Problem Classification Problem Date Documented Da te Episodic/Chronic Other injuries and conditions due to external causes (1 source) Unspecified injury of head, initial encounter; Translations: [Unspecified injury of head, initial encounter] Onset: 05-26-2024 Episodic Other injuries and conditions due to external causes (2 sources) Injury of head Onset: 05-26-2024 Episodic Results Test Name Value Interpretation Reference Range Nancy daily Rossy 01-21-2025 ROBERTA Telephone (GMINE) MALLORY OLVERA ([id number]) 1990 F Date Time Provider Department 01/21/25 ASHOK SHI During your visit today, we recorded the following information about you: Ashok Shi, MS 01/21/2025 10:53 AM Signed Patient name and was confirmed at initiation of discussion. RESULTS Mallory Olvera's Multi-Cancer panel through [facility] was negative for a pathogenic variant. This includes both the MLH1 and CDKN2A familial pathogenic variants. A scanned copy of this test report is available through [employer] chart review under the lab tab, listed as external lab - miscellaneous lab. RISK ASSESSMENT AND PLAN This is a true negative, meaning that the patient did not inherit either pathogenic variant responsible for Echevarria Syndrome or KMSK7L-vutirwuhfe Cancer Risk in this family. These results also mean that the patient's children are not at risk to inherit the familial mutation from the patient. However, other family members including siblings could still have either variant and should consider their own testing. The remainder of the Multi Cancer panel through [facility] was also negative. This included: AIP, ALK, APC, STEFAN, AXIN2, BAP1, BARD1, BLM, BMPR1A, BRCA1, BRCA2, BRIP1, CDC73, CDH1, CDK4, CDKN1B, CDKN2A, CHEK2, CTNNA1, DICER1, EGFR, EPCAM, FH, FLCN, GREM1, HOXB13, KIT, LZTR1, MAX, MBD4, MEN1, MET, MITF, MLH1, MSH2, MSH3, MSH6, MUTYH, NF1, NF2, NTHL1, PALB2, PDGFRA, PMS2, POLD1, POLE, POT1, DSTCH2O, PTCH1, PTEN, RAD51C, RAD51D, RB1, RET, SDHA, SDHAF2, SDHB, SDHC, SDHD, SMAD4, SMARCA4, SMARCB1, SMARCE1, STK11, SUFU, IEBA201, TP53, TSC1, TSC2, VHL. Cancer screening should include the guidance of the patient's primary care provider and may reflect personal risk factors. After discussing the implications of these results with regards to the patients cancer risks and the cancer risks for their family members, a copy of this discussion, a copy of their genetic testing results and educational information regarding these results will be mailed to the patient. Ashok Shi MS, [facility] Licensed, Certified Genetic Counselor [facility] CC: Dr. Hellen Peña CC BY US MAIL: Dr. nAgy Fritz SEND TO PATIENT: Copy of Encounter, Genetic Testing Results Allergies As of Date: 01/21/2025 (Not on File) Date Reviewed: Never Reviewed Reason for Visit: Results [95] Problem List As Of Date: 01/21/2025 (None) Encounter Status:Closed by ASOHK SHI on 01/21/25 [facility] HEREDITARY DIAG NOSTIC CANCER PANELon 01-19-2025 Genetic disease analysis overall interpretation [facility] (Bld/Tiss) [Interp] Negative [facility] About Test This diagnostic test evaluates 70 gene(s) for variants (genetic changes) that are associated with genetic disorders. Diagnostic genetic testing, when combined with family history and other medical results, may provide information to clarify individual risk, support a clinical diagnosis, and assist with the development of a personalized treatment and management strategy. [facility] Additional Information For additional information related to the methods and limitations of this testing, please see the PDF report [facility] Test Performed [facility] Multi-Cancer Panel [facility] Tested Genes AIP (NM_003977.3), ALK (NM_004304.4), APC (NM_000038.5), STEFAN (NM_000051.3), AXIN2 (NM_004655.3), BAP1 (NM_004656.3), BARD1 (NM_000465.3), BLM (NM_000057.3), BMPR1A (NM_004329.2), BRCA1 (NM_007294.3), BRCA2 (NM_000059.3), BRIP1 (NM_032043.2), CDC73 (NM_024529.4), CDH1 (NM_004360.3), CDK4 (NM_000075.3), CDKN1B (NM_004064.4), CDKN2A (p14ARF) (NM_058195.3), CDKN2A (r53ERP7d) (NM_000077.4), CHEK2 (NM_007194.3), CTNNA1 (NM_001903.3), DICER1 (NM_177438.2), EGFR (NM_005228.3), EPCAM (NM_002354.2), FH (NM_000143.3), FLCN (NM_144997.5), GREM1 (NM_013372.6), HOXB13 (NM_006361.5), KIT (NM_000222.2), LZTR1 (NM_006767.3), MAX (NM_002382.4), MBD4 (NM_003925.2), MEN1 (NM_130799.2), MET (NM_001127500.1), MITF (NM_000248.3), MLH1 (NM_000249.3), MSH2 (NM_000251.2), MSH3 (NM_002439.4), MSH6 (NM_000179.2), MUTYH (NM_001128425.1), NF1 (NM_000267.3), NF2 (NM_000268.3), NTHL1 (NM_002528.6), PALB2 (NM_024675.3), PDGFRA (NM_006206.4), PMS2 (NM_000535.5), POLD1 (NM_002691.3), POLE (NM_006231.3), POT1 (NM_015450.2), VFMZR5C (NM_002734.4), PTCH1 (NM_000264.3), PTEN (NM_000314.4), RAD51C (NM_058216.2), RAD51D (NM_002878.3), RB1 (NM_000321.2), RET (NM_020975.4), SDHA (NM_004168.3), SDHAF2 (NM_017841.2), SDHB (NM_003000.2), SDHC (NM_003001.3), SDHD (NM_003002.3), SMAD4 (NM_005359.5), SMARCA4 (NM_001128849.1), SMARCB1 (NM_003073.3), SMARCE1 (NM_003079.4), STK11 (NM_000455.4), SUFU (NM_016169.3), DGTF960 (NM_017849.3), TP53 (NM_000546.5), TSC1 (NM_000368.4), TSC2 (NM_000548.3), [...] may not be included in this report. [facility] MLR HEMOGLOBIN A1Con 025 Glucose [Mass/Vol] 235 mg/dL [facility] HbA1c (Bld) [Mass fraction] 9.8 % High 4.5 - 6.2 % [facility] Comment on above: ADA RECOMMENDED LIMI T 4.0 - 6.0 ADA THERAPEUTIC TARGET < 7.0 ACTION SUGGESTED > 7.0 Interpretation and review of laboratory results Abnormal [facility] Healthcar e CBC WITH AUTO DIFFERENTIALon 11-28-2024 BASOPHILS ABSOLUTE COUNT (10*3/UL) BY AUTOMATED COUNT 0.1 10*3/uL Normal [facility] Comment on above: Performed By: #### C BCA #### [facility]) [address] [place] [address] VIR BASOPHILS RELATIVE PERCENT BY AUTOMATED COUNT 0.7 % Normal [facility] Comment on above: Performed By: #### C BCA #### [facility] ([facility]) [address] [place] [address] VIR CELLAVISION DIFFERENTIAL TYPE AUTOMATED DIFFERENTIAL Normal [facility] Comment on above: Performed By: #### C BCA #### [facility] ([facility]) [address] [place] [address] VIR Eosinophils (Bld) [#/Vol] 0.3 10*3/uL Normal [facility] Comment on above: Performed By: #### C BCA #### [facility] ([facility]) [address] [place] [address] VIR EOSINOPHILS RELATIVE PERCENT BY AUTOMATED COUNT 3.1 % Normal [facility] Comment on above: Performed By: #### C BCA #### [facility] ([facility]) [address] [place] [address] VIR Erythrocyte distribution width (RBC) [Ratio] 14.3 % Normal 11.5-15 [facility] Comment on above: Performed By: #### C BCA #### [facility] ([facility]) [address] [place] [address] VIR Hematocrit (Bld) [Volume fraction] 40.9 % Normal 35-47 [facility] Comment on above: Performed By: #### C BCA #### [facility] ([facility]) [address] [place] [address] VIR Hemoglobin (Bld) [Mass/Vol] 14.3 g/dL Normal 11.7-15.5 [facility] Comment on above: Performed By: #### C BCA #### [facility] ([facility]) [address] [place] [address] VIR LYMPHOCYTES ABSOLUTE COUNT (10*3/UL) BY AUTOMATED COUNT 2.5 10*3/uL Normal [facility] Comment on above: Performed By: #### C BCA #### [facility] ([facility]) [address] [place] [address] VIR LYMPHOCYTES RELATIVE PERCENT BY AUTOMATED COUNT 29.5 % Normal [facility] Comment on above: Performed By: #### C BCA #### [facility] ([facility]) [address] [place] [address] VIR MCH (RBC) [Entitic mass] 30.7 pg Normal 27-34 [facility] Comment on above: Performed By: #### C BCA #### [facility] ([facility]) [address] [place] [address] VIR MCHC (RBC) [Mass/Vol] 35.0 g/dL Normal 32-36 [facility] Comment on above: Performed By: #### C BCA #### [facility] ([facility]) [address] [place] [address] VIR MCV (RBC) [Entitic vol] 88 fL Normal 80-100 [facility] Comment on above: Performed By: #### C BCA #### [facility]) [address] [place] [address] VIR MONOCYTES ABSOLUTE COUNT (10*3/UL) BY AUTOMATED COUNT 0.4 10*3/uL Normal [facility] Comment on above: Performed By: #### C BCA #### [facility] ([facility]) [address] [place] [address] VIR MONOCYTES RELATIVE PERCENT BY AUTOMATED COUNT 4.6 % Normal [facility] Comment on above: Performed By: #### C BCA #### [facility]) [address] [place] [address] VIR NEUTROPHILS ABSOLUTE COUNT BY AUTOMATED COUNT 5.3 10*3/uL Normal [facility] Comment on above: Performed By: #### C BCA #### [facility]) [address] [place] [address] VIR NEUTROPHILS RELATIVE PERCENT BY AUTOMATED COUNT 62.1 % Normal [facility] Comment on above: Performed By: #### C BCA #### [facility]) [address] [place] [address] VIR Platelet mean volume (Bld) [Entitic vol] 7.9 fL Normal 7-12 [facility] Comment on above: Performed By: #### C BCA #### [facility]) [address] [place] [address] VIR Platelets (Bld) [#/Vol] 298 10*3/uL Normal 150-450 [facility] Comment on above: Performed By: #### C BCA #### [facility]) [address] [place] [address] VIR RBC COUNT 4.66 X10E12/L Normal 3.8-5.2 [facility] Comment on above: Performed By: #### C BCA #### [facility]) [address] [place] [address] VIR WBC (Bld) [#/Vol] 8.5 10*3/uL Normal 4-11 [facility] Comment on above: Performed By: #### C BCA #### [facility]) [address] [place] [address] VIR COMPREHENSIVE METABOLIC PANE Camron 11-28-2024 Albumin [Mass/Vol] 4.0 g/dL Normal 3.2-5.3 [facility] Comment on above: Performed By: #### C MP #### [facility]) [address] [place] [address] VIR ALP [Catalytic activity/Vol] 108 U/L Normal 39-130 [facility] Comment on above: Performed By: #### C MP #### [facility]) [address] [place] [address] VIR ALT [Catalytic activity/Vol] 23 U/L Normal <=31 [facility] Comment on above: Performed By: #### C MP #### [facility]) [address] [place] [address] VIR Anion gap [Moles/Vol] 8 mmol/L Normal 5-15 [facility] Comment on above: Performed By: #### C MP #### [facility]) [address] [place] [address] VIR AST [Catalytic activity/Vol] 22 U/L Normal <=41 [facility] Comment on above: Performed By: #### C MP #### [facility]) [address] [place] [address] VIR Bilirubin [Mass/Vol] 0.5 mg/dL Normal 0.3-1.2 [facility] Comment on above: Performed By: #### C MP #### [facility]) [address] [place] [address] VIR Calcium [Mass/Vol] 9.8 mg/dL Normal 8.5-10.5 [facility] Comment on above: Performed By: #### C MP #### [facility]) [address] [place] [address] VIR Chloride [Moles/Vol] 98 mmol/L Normal 98-109 [facility] Comment on above: Performed By: #### C MP #### [facility]) [address] [place] [address] VIR CO2 [Moles/Vol] 30 mmol/L Normal 22-32 [facility] Comment on above: Performed By: #### C MP #### [facility]) [address] [place] [address] VIR Creatinine [Mass/Vol] 0.48 mg/dL Normal 0.40-1.00 [facility] Comment on above: Result Comment: METH OD TRACEABLE TO IDMS STANDARD Performed By: #### C MP #### [facility]) [address] [place] [address] VIR EGFR (CKD-EPI) NON-RACE DEPENDENT >^90 Normal >=60 [facility] Comment on above: Result Comment: Repo rted eGFR is based on the CKD-EPI 2020 equation that does not use a race coefficient. Performed By: #### C MP #### [facility]) [address] [place] [address] VIR Glucose [Mass/Vol] 194 mg/dL High 65-99 [facility] Comment on above: Performed By: #### C MP #### [facility]) [address] [place] [address] VIR Potassium [Moles/Vol] 3.9 mmol/L Normal 3.5-5.0 [facility] Comment on above: Performed By: #### C MP #### [facility]) [address] [place] [address] VIR Protein [Mass/Vol] 7.5 g/dL Normal 6.0-8.0 [facility] Comment on above: Performed By: #### C MP #### [facility]) [address] [place] [address] VIR Sodium [Moles/Vol] 136 mmol/L Normal 134-146 [facility] Comment on above: Performed By: #### C MP #### [facility]) [address] [place] [address] VIR Urea nitrogen [Mass/Vol] 8 mg/dL Normal 5-23 [facility] Comment on above: Performed By: #### C MP #### [facility]) [address] [place] [address] VIR LIPID PROFILEon 11-28-2024 Cholesterol [Mass/Vol] 215 mg/dL High 150-200 [facility] Comment on above: Performed By: #### L IPR #### [facility]) [address] [place] [address] VIR Cholesterol in HDL [Mass/Vol] 44 mg/dL Normal >39 [facility] Comment on above: Result Comment: HDL <40 mg/dL - High Risk HDL > or = 40mg/dL- Desirable HDL >60 mg/dL - Negative Risk Performed By: #### L IPR #### [facility]) [address] [place] [address] VIR Cholesterol in LDL [Mass/Vol] 114 mg/dL Normal <130 [facility] Comment on above: Result Comment: LDL <100 mg/dL - Desirable LDL >160 mg/dL - High Risk Performed By: #### L IPR #### [facility]) [address] [place] [address] VIR CHOLESTEROL:HDL 4.9 Normal 1.0-5.0 [facility] Comment on above: Performed By: #### L IPR #### [facility]) [address] [place] [address] VIR Triglyceride [Mass/Vol] 285 mg/dL High 27-150 [facility] Comment on above: Performed By: #### L IPR #### [facility]) [address] [place] [address] VIR VERY LOW LIPOPROTEIN 57 mg/dL High 0-30 [facility] Comment on above: Performed By: #### L IPR #### [facility]) [address] [place] [address] VIR MICROALBUMIN / CREATININE UR INE RATIOon 11-28-2024 Albumin DL <= 20 mg/L (U) [Mass/Vol] 1.0 mg/dL Normal 0.0-1.9 [facility] Comment on above: Performed By: #### M ALBU #### [facility]) [address] [place] [address] VIR MALB/CREAT RATIO 6.6 mg/g Normal 0.0-30.0 [facility] Comment on above: Performed By: #### M ALBU #### [facility]) [address] [place] [address] VIR URINE CREATININE,RDM 151.60 mg/dL Normal [facility] Comment on above: Performed By: #### M ALBU #### [facility]) [address] [place] [address] VIR THYROID PROFILE INCLUDES TSH FT4on 11-28-2024 Free T4 [Mass/Vol] 0.65 ng/dL Normal 0.61-1.60 [facility] Comment on above: Performed By: #### T HYR #### [facility]) [address] [place] [address] VIR TSH 3.53 uIU/mL Normal 0.49-4.67 [facility] Comment on above: Performed By: #### T HYR #### [facility]) [address] [place] [address] VIR VITAMIN D 25 HYDROXYon 11-28 VITAMIN D 25 HYD TOT 12.7 ng/mL Low 30.0-100.0 [facility] Comment on above: Order Comment: Vitam in D status 25 [place] Vitamin D Deficiency <20 ng/mL Insufficiency 20-29 ng/mL Sufficiency 30-100 ng/mL Toxicity >100 ng/mL NOTE: A pediatric reference range has not been established by the resident service coordinator of this kit. The [place] [employer] recommends a Vitamin D level of = or >20ng/mL in infants and children. Performed By: #### V ITD #### [facility]) [address] [place] [address] VIR Lab - Toxicology Resultson 0 08-21-2018 Lab - Toxicology Results [id number]# 1.00OTGTIFF [facility] Outside Recordson 08-20-2018 Outside Records [id number] 1.00OTGTIFF [facility] Triage Industrialon 08-20-19 19 Drug Screen Complete Collected Normal [facility] Comment on above: Performed By: #### 1 [id number] #### [facility] (DEFAULT) [address] [place] [address] ED Clinical Summaryon 2018 ED Clinical Summary [facility] ? Urgent Care [address] [place] [id number] Clinical Summary PERSON INFORMATION Name: MALLORY HOLLAND Age: 28 Years Sex: FEMALE : [birth year] MRN: Acct#: Visit Reason: [facility] [place] Physical; PRE EMPLOYMENT PHYSICAL/[place] Arrival: 08/19/18 13:53:11 Discharge: 08/19/18 14:30:00 LOS: 000 00:37 Check In: 08/19/18 13:53:11 Checkout: 08/19/18 14:30:00 Address: [facility] [address] [facility] [address] PCP: PROVIDER INFORMATION Provider Role Assigned Unassigned Vinay Rhoades PA-C ED PA 08/19/18 13:57:25 Alejandro RN, Aliza ED Nurse 08/19/18 14:07:37 VITALS INFORMATION Vital Sign Triage Latest Temperature Tympanic Temperature Temporal Artery Pulse Rate 99 bpm 99 bpm O2 Sat 97 % 97 % Respiratory Rate 16 br/min 16 br/min Blood Pressure 128 mmHg/82 mmHg 128 mmHg/82 mmHg MEDICAL INFORMATION Medications Given: Allergy Information: No known allergies PHYSICIAN DOCUMENTATION Patient: MALLORY HOLLAND Age: 28 years Sex: FEMALE : [birth year] Associated Diagnoses: None Author: Vinay Rhoades PA-C History of Present Illness Patient presents for a work physical. Shee is cleared for work. Exam is normal. See scanned document. Health Status Allergies: No active allergies have been recorded.. Past Medical/ Family/ Social History Medical history: No active or resolved past medical history items have been selected or recorded.. Surgical history: No active procedure history items have been selected or recorded.. Family history: No family history items have been selected or recorded.. Social history: Social & Psychosocial Habits No Data Available . Problem list: No qualifying data available . Physical Examination Vital Signs Vital Signs 08/19/18 13:53 EST Temperature Temporal 36.2 DegC LOW Peripheral Pulse Rate 99 bpm Respiratory Rate 16 br/min Systolic Blood Pressure 128 mmHg Diastolic Blood Pressure 82 mmHg SpO2 97 % Oxygen Therapy Room air . GENERAL: Awake, alert and oriented to person, place and situation. Well nourished, well developed, non toxic, NAD. EYES: Pupils equal, round and react to light. EOMI. ENMT: Ears: TM's and external canals with normal inspection bilaterally. Nose: normal inspection. Mouth: oral mucosa is pink and still moist. Throat: normal inspection. NECK: No bony TTP, normal range of motion, no meningismus, trachea is midline. No anterior or posterior lymphadenopathy. CARDIOVASCULAR: Regular rate and rhythm. +S1 +S2. No murmurs or rubs. RESPIRATORY: Clear to auscultation bilaterally without rales, rhonchi or wheeze. ABDOMEN: Soft, obese, completely non tender, abdomen is non distended, without rebound tenderness, guarding or peritoneal signs. Bowel sounds present times 4 quadrants and normoactive. No bruits. No masses. No CVA TTP. BACK: There is no bony TTP, no scoliosis, full ROM without difficulty. EXTREMITIES: No cyanosis, clubbing or edema. Good muscle tone, moves all extremities fully. Squat normal. SKIN: Normal inspection, no visualized rash. NEUROLOGIC: Light touch sensation in tact, strength 5/5 in bilateral upper and lower extremities. Steadt gait. Normal mentation. No focal neurological deficits appreciated. PSYCHIATRIC: Mood and affect appropriate. DISCHARGE INFORMATION: Discharge Disposition: Home Discharge Location: Home PATIENT EDUCATION INFORMATION Instructions: Follow-Up: DIAGNOSIS: Patient Understands: Yes - Patient/family/careg iver verbalizes understanding of instructions given Comment: Normal [facility] ED Note - Physicianon 2018 ED Note - Physician Patient: MALLORY HOLLAND Age: 28 years Sex: FEMALE : [birth year] Associated Diagnoses: None Author: Vinay Rhoades PA-C History of Present Illness Patient presents for a work physical. Shee is cleared for work. Exam is normal. See scanned document. Health Status Allergies: No active allergies have been recorded.. Past Medical/ Family/ Social History Medical history: No active or resolved past medical history items have been selected or recorded.. Surgical history: No active procedure history items have been selected or recorded.. Family history: No family history items have been selected or recorded.. Social history: Social & Psychosocial Habits No Data Available . Problem list: No qualifying data available . Physical Examination Vital Signs Vital Signs 08/19/18 13:53 EST Temperature Temporal 36.2 DegC LOW Peripheral Pulse Rate 99 bpm Respiratory Rate 16 br/min Systolic Blood Pressure 128 mmHg Diastolic Blood Pressure 82 mmHg SpO2 97 % Oxygen Therapy Room air . GENERAL: Awake, alert and oriented to person, place and situation. Well nourished, well developed, non toxic, NAD. EYES: Pupils equal, round and react to light. EOMI. ENMT: Ears: TM's and external canals with normal inspection bilaterally. Nose: normal inspection. Mouth: oral mucosa is pink and still moist. Throat: normal inspection. NECK: No bony TTP, normal range of motion, no meningismus, trachea is midline. No anterior or posterior lymphadenopathy. CARDIOVASCULAR: Regular rate and rhythm. +S1 +S2. No murmurs or rubs. RESPIRATORY: Clear to auscultation bilaterally without rales, rhonchi or wheeze. ABDOMEN: Soft, obese, completely non tender, abdomen is non distended, without rebound tenderness, guarding or peritoneal signs. Bowel sounds present times 4 quadrants and normoactive. No bruits. No masses. No CVA TTP. BACK: There is no bony TTP, no scoliosis, full ROM without difficulty. EXTREMITIES: No cyanosis, clubbing or edema. Good muscle tone, moves all extremities fully. Squat normal. SKIN: Normal inspection, no visualized rash. NEUROLOGIC: Light touch sensation in tact, strength 5/5 in bilateral upper and lower extremities. Steadt gait. Normal mentation. No focal neurological deficits appreciated. PSYCHIATRIC: Mood and affect appropriate. [Electronically Signed on: 08/19/2018 14:29 EST] Vinay Rhoades PA-C [Verified on: 08/19/2018 14:29 EST] Vinay Rhoades PA-C Normal [facility] ED Patient Summaryon 019 ED Patient Summary [facility] ? Urgent Care [address] [place] [address] PATIENT DISCHARGE INSTRUCTIONS Patient Information Name: MALLORY HOLLAND Age: 28 Years Date of : [birth year] Reason For Visit: [facility] [place] Physical; PRE EMPLOYMENT PHYSICAL/[place] Arrival Time: 08/19/18 13:53:11 Primary Care Physician: Attending Physician: Vinay Rhoades PA-C Comment: Patient Education Medication Information: The exam and treatment you received today in the [facility] Emergency Department were for an urgent problem and are not intended as complete care. It is important for you to follow up with a doctor, nurse practitioner, or physician?s psychiatric technician assistant for ongoing care. If your symptoms become worse or you do not improve as expected and you are unable to reach your usual health care provider, you should return to the Emergency Department, we are available 24 hours a day. For those patients who have received Radiology results, the interpretation of your X-ray as given to you by our Emergency Department physician is only a preliminary report. The Radiologist will review your films and if there is a change in the diagnosis you will be notified by phone. Please make sure you have provided a working phone number so we can reach you if necessary. In the event that you had a lab culture while you were a patient in the Emergency Department, you will be notified by phone if there is a need to change your antibiotic. Please make sure you have provided a working phone number so we can reach you if necessary. [facility] Emergency Department has provided you with a complete list of medications post discharge. Please inform your atg java developer/provider of your visit and for further instruction on these medications. Any specific questions regarding your chronic medications and dosages should be discussed with your primary care physician(s) and/or pharmacist. Medications to Continue That Have Not Changed Other Medications albuterol (Ventolin HFA 90 mcg/inh inhalation aerosol) 2 puff(s) Inhalation 4 times a day. metFORMIN (metFORMIN 500 mg oral tablet) 1 tab(s) Oral every day. montelukast (Singulair 10 mg oral tablet) 1 tab(s) Oral every day. naproxen (naproxen 500 mg oral tablet) 1 tab(s) Oral 2 times a day. Visit Information Visit Diagnosis: Diagnoses This Visit [facility] Physical If you received any narcotics, sedation, or any other medication that causes drowsiness for the next 24 hours, unless otherwise directed: ? Do not drive a car. ? Do not operate machinery such as power tools, lawn mowers, drills, sewing machines, or stoves ? Avoid alcoholic beverages and drugs for allergies, nerves, or sleep ? Do not make important personal or business decisions or sign any legal documents Reason for Visit: [place] Physical Allergies: Substance Reaction Symptoms Type Comments No known allergies Drug Vital Signs: Vitals and Measurements this Visit (last charted value for your 08/19/2018 visit) Vital Signs This Visit Temperature Temporal: 36.2 DegC Peripheral Pulse Rate: 99 bpm Respiratory Rate: 16 br/min Systolic Blood Pressure: 128 mmHg Diastolic Blood Pressure: 82 mmHg SpO2: 97 % Oxygen Therapy: Room air Measurements This Visit Height: 170.18 cm Weight: 119.57 kg Body Mass Index: 41.29 kg/m2 Problems List: Problem Onset Comments No Problems found Major Tests and Procedures: The following procedures and tests were performed during your ED visit. Laboratory Radiology Cardiology Viruses or Bacteria What?s got you sick? Antibiotics only treat bacterial infections. Viral illnesses cannot be treated with antibiotics. When an antibiotic is not prescribed, ask your healthcare professional for tips on how to relieve symptoms and feel better. Usual Cause Illness Viruses Bacteria Antibiotic Needed Cold/Runny Nose NO Bronchitis/Chest Cold (in otherwise healthy children and adults) NO Whooping Cough Yes Flu NO Strep Throat Yes Sore Throat (except strep) NO Fluid in the middle ear (otitis media with effusion) NO Urinary Tract Infection Yes Antibiotics Aren?t Always the Answer www.cdc.gov/getsmart GET SMART Know When Antibiotics Work U.S. Department of Health and Human Services Centers for Disease Control and Prevention March 2014 [facility] Vital Signs Date Time Vital Sign Value Performing Clinician Alana singer 01-18-2025 11:190400 Body height 170.2 cm Paradise Naseem DO Work Phone: [facility] 01-18-2025 11:19-0400 Body mass index (BMI) [Ratio] 38.14 kg/m2 Paradise Naseem DO Work Phone: [facility] 01-18-2025 11:19-0400 Body weight 110.45 kg Paradise Naseem DO Work Phone: [facility] 01-18-2025 11:19-0400 Diastolic blood pressure 90 mm[Hg] Paradise Naseem DO Work Phone: [facility] 01-18-2025 11:19-0400 Systolic blood pressure 146 mm[Hg] Paradise Naseem DO Work Phone: [facility] Healthcare Encounters Encounter Date Encounter Type Care Provider Facility Start: 01-21-2025 End: 01-21-2025 Telephone encounter Ashok Shi MS Work Phone: [facility] Comment on above: Results Start: 01-18-2025 End: 01-18-2025 Bamboo flowsheet Paradise Naseem DO Work Phone: [facility] Start: 01-18-2025 End: 01-18-2025 Bamboo flowsheet Paradise Naseem DO Work Phone: [facility] Start: 01-18-2025 End: 01-18-2025 Clinisync Result Encounter Paradise Naseem DO Work Phone: [facility] Unsolicited Start: 01-18-2025 End: 01-18-2025 Office outpatient visit 15 minutes Paradise Naseem DO Work Phone: [facility] Comment on above: PCOS (polycystic ova werner syndrome); Thyroid disease ; Anovulation; Irregular periods/menstrual cycles Start: 01-18-2025 End: 01-18-2025 ambulatory PARADISE NASEEM Not Available Start: 01-13-2025 End: 01-13-2025 ambulatory Ashok Shi MS Work Phone: [facility] Comment on above: Family history of ge ne mutation (Primary Dx); Family history of colon cancer; Family history of ovarian cancer Start: 01-13-2025 End: 01-13-2025 Telemedicine consultation with patient Ashok Shi MS Work Phone: [facility] Start: 11-28-2024 ambulatory RENUKA REED [facility] Start: 05-26-2024 End: 05-26-2024 Emergency department patient visit ANGY FRITZ [facility] Procedures Date Procedure Procedure Detail Performing Clinician Start: 01-18-2025 MLR HEMOGLOBIN A1C Core y Naseem DO Work Phone: Plan of Treatment Date Care Activity Detail Author Start: 05-18-2025 End: 05-18-2025 Patient encounter procedure 05/18/2025 8:40 AM EDT Office Visit [facility] [address] [place] [address] Paradise Gusman DO [address] [place] [address] [facility] Start: 03-29-2025 Influenza vaccination Influenz a Vaccine (Season Ended) [facility] Start: 02-02-2025 End: 02-02-2025 Patient encounter procedure 02/02/2025 10:00 AM EDT Office Visit [facility] [address] [place] [id number] Yadi Mathis PA [address] [place] [address] [facility] Start: 01-18-2025 End: 01-18-2026 Antimullerian hormone (AMH) Antimullerian hormone (AMH) Lab Routine PCOS (polycystic ovarian syndrome) Thyroid disease Anovulation Irregular periods/menstrual cycles Expected: 01/18/2025 (Approximate), Expires: 01/18/2026 [facility] Healthcare Comment on above: Expected: 01/18/2025 (Approximate), Expires: 01/18/2026 Start: 01-18-2025 End: 01-18-2026 DHEA DHEA Lab Routine PCOS (polycystic ovarian syndrome) Thyroid disease Anovulation Irregular periods/menstrual cycles Expected: 01/18/2025 (Approximate), Expires: 01/18/2026 [facility] Healthcare Comment on above: Expected: 01/18/2025 (Approximate), Expires: 01/18/2026 Start: 01-18-2025 End: 01-18-2026 US Pelvis US Pelvis w/ TV Imaging Routine PCOS (polycystic ovarian syndrome) Thyroid disease Anovulation Irregular periods/menstrual cycles Expected: 01/18/2025, Expires: 01/18/2026 [facility] Healthcare Comment on above: Expected: 01/18/2025 , Expires: 01/18/2026 Start: 01-18-2025 End: 01-18-2025 Patient encounter procedure 01/18/2025 11:10 AM EDT Office Visit [facility] [address] [place] [address] Paradise Gusman, DO [address] [place] [address] [place] [address] Arrived [facility] OB Comment on above: Arrived Start: 03-29-2024 Covid-19 Vaccine ( season) Covid-19 Vaccine ( season) [facility] Start: 2012 Screening for malign ant neoplasm of cervix Cervical Cancer Screening [facility] Start: 2010 Hepatitis B Vaccine (1 of 3 - 19+ 3-dose series) Hepatitis B Vaccine (1 of 3 - 19+ 3-dose series) [facility] Start: 2010 Urine microalbumin profile DTaP,Tdap,Td Vaccine (1 - Tdap) [facility] Start: 2009 Anxiety Screening Anxiety Screening [facility] Start: 2009 Depression Screening Depression Scre ening [facility] Start: 2009 Hepatitis C screening Hepatitis C Sc reening [facility] Start: 2009 HIV screening HIV Screening [facility] CBC W Auto Different ial panel - Blood CBC and differential Lab Routine PCOS (polycystic ovarian syndrome) Thyroid disease Anovulation Irregular periods/menstrual cycles Ordered: 01/18/[address] [facility] Comment on above: Ordered: 01/18/2025 DHEA-sulfate DHEA-sulfate Lab Routine PCOS (polycystic ovarian syndrome) Thyroid disease Anovulation Irregular periods/menstrual cycles Ordered: 01/18/[address] [facility] Comment on above: Ordered: 01/18/2025 Follicle stimulating hormone Follicle stimulating hormone Lab Routine PCOS (polycystic ovarian syndrome) Thyroid disease Anovulation Irregular periods/menstrual cycles Ordered: 01/18/2025 [facility] Healthcare Comment on above: Ordered: 01/18/2025 hCG, quantitative, hCG, quantitative, Lab Routine PCOS (polycystic ovarian syndrome) Thyroid disease Anovulation Irregular periods/menstrual cycles Ordered: 01/18/2025 [facility] Work Phone: Comment on above: Ordered: 01/18/2025 Hemoglobin A1c/Hemoglobin.total in Blood Hemoglobin A1c Lab Routine PCOS (polycystic ovarian syndrome) Thyroid disease Anovulation Irregular periods/menstrual cycles Ordered: 01/18/2025 [facility] Comment on above: Ordered: 01/18/2025 Luteinizing hormone Luteinizing hormone Lab Routine PCOS (polycystic ovarian syndrome) Thyroid disease Anovulation Irregular periods/menstrual cycles Ordered: 01/18/2025 [facility] Healthcare Comment on above: Ordered: 01/18/2025 Prolactin Prolactin Lab Ro utine PCOS (polycystic ovarian syndrome) Thyroid disease Anovulation Irregular periods/menstrual cycles Ordered: 01/18/2025 [facility] Healthcare Comment on above: Ordered: 01/18/2025 Thyrotropin [Units/volume] in Serum or Plasma TSH Lab Routine PCOS (polycystic ovarian syndrome) Thyroid disease Anovulation Irregular periods/menstrual cycles Ordered: 01/18/2025 [facility] Healthcare Comment on above: Ordered: 01/18/2025 Thyroxine (T4) free [Mass/volume] in Serum or Plasma T4, free Lab Routine PCOS (polycystic ovarian syndrome) Thyroid disease Anovulation Irregular periods/menstrual cycles Ordered: 01/18/2025 [facility] Healthcare Comment on above: Ordered: 01/18/2025 Payers Date Payer Category Payer Private Health Insurance [id number] 2024 Unknown [id number] 1990 Unknown [id number] 1990 Unknown [id number] 1990 Unknown [id number] Worker's Compensation [id number] Social History Date Type Detail Facility Start: 04-07-2023 Tobacco smoking status [facility] Never smoked tobacco [facility] Start: 05-21-2023 End: 01-18-2025 Alcoholic beverage intake Current drinker of alcohol (finding) [facility] Start: 05-21-2023 End: 01-13-2025 History of Social function [facility] Start: 05-21-2023 End: 01-13-2025 Alcohol Use Disorder Identification Test - Consumption [AUDIT-C] [facility] How often to you hav e a drink containing alcohol? Monthly or less [facility] How many standard dr inks containing alcohol do you have on a typical day? 1 or 2 [facility] Frequency of Binge Drinking Not on file [facility] Start: 05-21-2023 Alcohol Comment Caffeine intake: 2-3 cups per day [facility] Start: 1990 Sex assigned at Female [facility] Start: 10-10-2022 Gender identity Identifies as female gender (finding) [facility] Start: 02-22-2023 Sexual orientation Heterosexual (finding) [facility] Tobacco smoking stat [facility] Tobacco smoking consumption unknown [facility] Work Phone: Start: 1990 Sex assigned at Not on file [facility] Telephone encounter Note 01-21-2025 Telephone Encounter - FalguniAshok, MS - 01/21/2025 10:43 AM EDT Note Date & Type Note Facility 01-21-2025 Telephone encount er Note Patient name and was confirmed at initiation of discussion. RESULTS Mallory Olvera's Multi-Cancer panel through [facility] was negative for a pathogenic variant. This includes both the MLH1 and CDKN2A familial pathogenic variants. A scanned copy of this test report is available through [facility] chart review under the lab tab, listed as external lab - miscellaneous lab. RISK ASSESSMENT AND PLAN This is a true negative, meaning that the patient did not inherit either pathogenic variant responsible for Echevarria Syndrome or [id number] Cancer Risk in this family. These results also mean that the patient's children are not at risk to inherit the familial mutation from the patient. However, other family members including siblings could still have either variant and should consider their own testing. The remainder of the Multi Cancer panel through [facility] was also negative. This included: AIP, ALK, APC, STEFAN, AXIN2, BAP1, BARD1, BLM, BMPR1A, BRCA1, BRCA2, BRIP1, CDC73, CDH1, CDK4, CDKN1B, CDKN2A, CHEK2, CTNNA1, DICER1, EGFR, EPCAM, FH, FLCN, GREM1, HOXB13, KIT, LZTR1, MAX, MBD4, MEN1, MET, MITF, MLH1, MSH2, MSH3, MSH6, MUTYH, NF1, NF2, NTHL1, PALB2, PDGFRA, PMS2, POLD1, POLE, POT1, [id number], PTCH1, PTEN, RAD51C, RAD51D, RB1, RET, SDHA, SDHAF2, SDHB, SDHC, SDHD, SMAD4, SMARCA4, SMARCB1, SMARCE1, STK11, SUFU, [id number], TP53, TSC1, TSC2, VHL. Cancer screening should include the guidance of the patient's primary care provider and may reflect personal risk factors. After discussing the implications of these results with regards to the patients cancer risks and the cancer risks for their family members, a copy of this discussion, a copy of their genetic testing results and educational information regarding these results will be mailed to the patient. Ashok Shi MS, [facility] Licensed, Certified Genetic Counselor [facility] CC: Dr. Hellen Peña CC BY US MAIL: Dr. Angy Fritz SEND TO PATIENT: Copy of Encounter, Genetic Testing Results [facility] Note 01-21-2025 Telephone Encounter - Ashok Shi MS - 01/21/2025 10:43 AM EDT Note Date & Type Note Facility 01-21-2025 Miscellaneous Notes Formattin g of this note might be different from the original. Patient name and was confirmed at initiation of discussion. RESULTS Mallory Olvera's Multi-Cancer panel through [facility] was negative for a pathogenic variant. This includes both the MLH1 and CDKN2A familial pathogenic variants. A scanned copy of this test report is available through [facility] chart review under the lab tab, listed as external lab - miscellaneous lab. RISK ASSESSMENT AND PLAN This is a true negative, meaning that the patient did not inherit either pathogenic variant responsible for Echevarria Syndrome or [id number]-[id number] Cancer Risk in this family. These results also mean that the patient's children are not at risk to inherit the familial mutation from the patient. However, other family members including siblings could still have either variant and should consider their own testing. The remainder of the Multi Cancer panel through [facility] was also negative. This included: AIP, ALK, APC, STEFAN, AXIN2, BAP1, BARD1, BLM, BMPR1A, BRCA1, BRCA2, BRIP1, CDC73, CDH1, CDK4, CDKN1B, CDKN2A, CHEK2, CTNNA1, DICER1, EGFR, EPCAM, FH, FLCN, GREM1, HOXB13, KIT, LZTR1, MAX, MBD4, MEN1, MET, MITF, MLH1, MSH2, MSH3, MSH6, MUTYH, NF1, NF2, NTHL1, PALB2, PDGFRA, PMS2, POLD1, POLE, POT1, [id number], PTCH1, PTEN, RAD51C, RAD51D, RB1, RET, SDHA, SDHAF2, SDHB, SDHC, SDHD, SMAD4, SMARCA4, SMARCB1, SMARCE1, STK11, SUFU, [id number], TP53, TSC1, TSC2, VHL. Cancer screening should include the guidance of the patient's primary care provider and may reflect personal risk factors. After discussing the implications of these results with regards to the patients cancer risks and the cancer risks for their family members, a copy of this discussion, a copy of their genetic testing results and educational information regarding these results will be mailed to the patient. Ashok Shi MS, [facility] Licensed, Certified Genetic Counselor [facility] CC: Dr. Hellen Peña CC BY US MAIL: Dr. Angy Fritz SEND TO PATIENT: Copy of Encounter, Genetic Testing Results documented in this encounter [facility] History of Present illness Narrative 01-18-2025 Sindy Patel LPN - 01/18/2025 11:10 AM EDT Note Date & Type Note Facility 01-18-2025 History of Presen t illness Narrative Reason for Appointment: Patient ID: Mallory Olvera is a 34 y.o. female who [...] nursing note reviewed. Exam conducted with a shareholder present. Vitals: Estimated body mass index is 38.14 kg/m as calculated from the following: Height as [...] Patient given handout with direct number to office coordinator receptionist for when cycle starts, so that Femara 2.5mg can be called into pharmacy. Patient will setup fertility follow up with Dr. Gusman in 4 months if not already conceived to then discuss next steps. Documented by Sindy Patel LPN on behalf of: Paradise Gusman DO documented in this encounter [facility] Progress note 01-13-2025 Note Date & Type Note Facility 01-13-2025 Note HNO ID: [id number] Author: ASHOK SHI MS Service: ? Author Type: Genetic Counselor Type: Progress Notes Filed: 01/20/2025 13:25 Note Text: [facility] Department of Medical Genetics Consultation Note Genetic Counselor: Ashok Shi MS, [facility] Patient: Mallory Olvera This visit was conducted via [employer]. I have communicated my name and active licensure. The patient's identity and physical location were verified at the time of this visit. Either the patient or their legal printing supplies sales representative has been informed of the risks and benefits of -- and alternatives to -- treatment through a remote evaluation and consents to proceed with the evaluation remotely. HIGH LEVEL SUMMARY: The patient's family history is significant for Echevarria Syndrome and JQDJ2O-nrxlstuvvo cancer risk. The patient has a 50% risk of having the familial MLH1 mutation as well as a 50% risk of having the familial CDKN2A mutation.. The patient provided informed consent for Multi-Cancer panel through [facility]. Results are expected in 2 weeks from the time of sample collection. IDENTIFICATION AND CHIEF COMPLAINT: Dr. Angy Fritz requested a consultation for genetic counseling and risk assessment for Mallory Olvera, a 34 year old female, for discussion of her family history of Echevarria syndrome. She presents to clinic today to discuss the possibility of a genetic predisposition to cancer, and to further clarify her risks, as well as her family members' risks for cancer. HISTORY OF PRESENT ILLNESS: Mallory Olvera is a 34 year old female [...] etiology of Echevarria Syndrome as well as OXDF1G-wwjscbshxr cancer risk. The patient has a 50% chance [...] additional appropriate care providers to discuss the relevant options. If neither familial mutation is found in the patient, they are a true negative for the familial mutation. Cancer surveillance options would be discussed for the patient according to the [place] [employer] guidelines. In either case, the [...] NTHL1, PALB2, PDGFRA, PMS2, POLD1, POLE, POT1, LYULU2X, PTCH1, PTEN, RAD51C, RAD51D, RB1, RET, SDHA, SDHAF2, SDHB, SDHC, SDHD, SMAD4, SMARCA4, SMARCB1, SMARCE1, STK11, SUFU, VEET578, TP53, TSC1, TSC2, VHL The Multi-Cancer panel [...] or employment based on their genetic testing resul (more content not included)... [facility] History of Present illness Narrative 01-13-2025 Ashok Shi, - 01/13/2025 10:09 AM EDT Note Date & Type Note Facility 01-13-2025 History of Presen t illness Narrative Images from the original note were not included. [facility] Department of Medical Genetics Consultation Note Genetic Counselor: Ashok Shi MS, [facility] Patient: Mallory Olvera This visit was conducted via [employer]. I have communicated my name and active licensure. The patient's identity and physical location were verified at the time of this visit. Either the patient or their legal printing supplies sales representative has been informed of the risks and benefits of -- and alternatives to -- treatment through a remote evaluation and consents to proceed with the evaluation remotely. HIGH LEVEL SUMMARY: The patient's family history is significant for Echevarria Syndrome and APMH6Q-uljnprrlml cancer risk. The patient has a 50% risk of having the familial MLH1 mutation as well as a 50% risk of having the familial CDKN2A mutation.. The patient provided informed consent for Multi-Cancer panel through [facility]. Results are expected in 2 weeks from the time of sample collection. IDENTIFICATION AND CHIEF COMPLAINT: Dr. Angy Fritz requested a consultation for genetic counseling and risk assessment for Mallory Olvera, a 34 year old female, for discussion of her family history of Echevarria syndrome. She presents to clinic today to discuss the possibility of a genetic predisposition to cancer, and to further clarify her risks, as well as her family members' risks for cancer. HISTORY OF PRESENT ILLNESS: Mallory Olvera is a 34 year old female [...] etiology of Echevarria Syndrome as well as RCFN0I-ysxxbzmswu cancer risk. The patient has a 50% chance [...] additional appropriate care providers to discuss the relevant options. If neither familial mutation is found in the patient, they are a true negative for the familial mutation. Cancer surveillance options would be discussed for the patient according to the [place] [employer] guidelines. In either case, the [...] NTHL1, PALB2, PDGFRA, PMS2, POLD1, POLE, POT1, NHXMB2Q, PTCH1, PTEN, RAD51C, RAD51D, RB1, RET, SDHA, SDHAF2, SDHB, SDHC, SDHD, SMAD4, SMARCA4, SMARCB1, SMARCE1, STK11, SUFU, KQMC023, TP53, TSC1, TSC2, VHL The Multi-Cancer panel [...] employment based on their genetic testing results. [employer] does not apply to life insurance, group home care insurance, or disability insurance. Per the patient's request, we will contact her by myChart or telephone to discuss these results. A [...] referring provider via the electronic medical record. Ashok Shi MS, [facility] Licensed, Certified Genetic Counselor [facility] CC: Idania Fishman CC BY MAIL: Dr. Angy Fritz documented in this encounter [facility] Evaluation note Note Date & Type Note Facility Evaluation note Diagnosis PCOS (polycystic ovarian syndrome) Polycystic ovaries Thyroid disease Unspecified disorder of thyroid Anovulation Female infertility associated with anovulation Irregular periods/menstrual cycles documented in this encounter [facility] Healthcare Evaluation note Note Date & Type Note Facility Evaluation note Diagnosis Family history of gene mutation- Primary Family history of colon cancer Family history of malignant neoplasm of gastrointestinal tract Family history of ovarian cancer Family history of malignant neoplasm of ovary documented in this encounter [facility] Summary Purpose Family History No Family History Records FoundNo Family History Records FoundNo Family History Records FoundNo Family History Records Found Advance Directives No Advanced Directives Records FoundNo Advanced Directives Records FoundNo Advanced Directives Records FoundNo Advanced Directives Records Found Additional Source Comments INFORMATION SOURCE (unrecogn ized section and content) DATE CREATED AUTHOR 03/11/2019 [facility] DATE CREATED AUTHOR AUTHOR'S ORGANIZ ATION 12/27/2024 [facility] DATE CREATED AUTHOR AUTHOR'S ORGANIZ ATION 01/19/2025 [facility] EPIC DATE CREATED AUTHOR AUTHOR'S ORGANIZ ATION 01/21/2025 [facility] Care Teams (unrecognized sec tion and content) Histopathology Technician Relationship Specialty Start Date End Date Angy Fritz MD [address] PCP - General Family Medicine 02/22/23 Histopathology Technician Relationship Specialty Start Date End Date Angy Fritz MD [address] [place] [address] PCP - General Family Medicine 02/22/23 Histopathology Technician Relationship Specialty Start Date End Date Angy Fritz MD [address] [place] [address] [address] PCP - General Family Medicine 02/22/23 Histopathology Technician Relationship Specialty Start Date End Date Angy Fritz MD [address] PCP - General Family Medicine 01/04/25 Histopathology Technician Relationship Specialty Start Date End Date Angy Fritz MD [address] PCP - General Family Medicine 01/04/25 Reason for Visit (unrecogniz ed section and content) Reason Comments Fertility Reason Comments Family History Of Cancer Reason Comments Results Source Comments (unrecognize d section and content) In the event this informatio n is protected by the Federal Confidentiality of Alcohol and Drug Abuse Patient Records regulations: The Federal rules restrict any use of the information to criminally investigate or prosecute any alcohol or drug abuse patient.[facility] the event this information is protected by the Federal Confidentiality of Alcohol and Drug Abuse Patient Records regulations: The Federal rules restrict any use of the information to criminally investigate or prosecute any alcohol or drug abuse patient.[facility] FOR RECORDS PERTAINING TO PATIENTS WHO ARE OR HAVE BEEN ENROLLED IN A CHEMICAL DEPENDENCY/SUBSTANCEABUSE PROGRAM, SOME INFORMATION MAY BE OMITTED. This clinical summary was aggregated from multiple sources. Caution should be exercised in using it in the provision of clinical care. This summary normalizes information from multiple sources, and as a consequence, information in this document may materially change the coding, format and clinical context of patient data. In addition, data may be omitted in some cases. CLINICAL DECISIONS SHOULD BE BASED ON THE PRIMARY CLINICAL RECORDS. [facility] [employer] [facility]. provides no warranty or guarantee of the accuracy or completeness of information in this document.
--- OUTSIDE RECORDS SUMMARY | 2025-01-23 10:10 | XMS_ITS | Clinical Summary ---
Author Organization [facility] Address [address] [place] [address] Care Team Providers Care Director Public Service Name Role Phone Marla Fritz MD Primary Care Provider + [phone] Allergies No known active allergies Medications Ventolin HFA 108 (90 Base) MCG/ACT inhaler 2 puffs Inhalation every 4 hrs prn cough for 30 days 02/06/20 10 Active levothyroxine (Synthroid) 25 MCG tabletIndicati ons:Thyroid disease Take 1 tablet (25 mcg) by mouth in the morning. Take before meals. 30 tablet 04/23/20 23 Active glipiZIDE (Glucotrol) 5 MG tablet Take 5 mg by mouth in the morning and 5 mg in the evening. Take before meals. Active metFORMIN XR (Glucophage-XR ) 500 MG 24 hr tabletIndicati ons:PCOS (polycystic ovarian syndrome),Anov ulation,Irregu lar periods/menstr ual cycles Take 1 tablet (500 mg) by mouth in the evening. Take with meals Do not crush, chew, or split. 30 tablet 11 01/19/20 025 Active medroxyPROGEST ERone (Provera) 10 MG tabletIndicati ons:PCOS (polycystic ovarian syndrome),Thyr oid disease,Anovul ation,Irregula r periods/menstr ual cycles Take 1 tablet (10 mg) by mouth Daily for 14 days 14 tablet 01/19/20 025 Active metFORMIN XR (Glucophage-XR ) 500 MG 24 hr tablet TAKE 1 TABLET BY MOUTH ONCE DAILY WITH EVENING MEAL 025 Discontinued Encounters Date Type Department Care Team Description 01/20/2025 [address] [facility] [address] [place] [phone] Kayce Wesley MA 01/18/2025 11:10 AM EDT Office Visit [facility] [address] [place] [address] Enoc Gusman DO PCOS (polycystic ovarian syndrome); Thyroid disease ; Anovulation; Irregular periods/menstrual cycles 01/18/2025 Clinisync Result Encounter [facility] External Department Unsolicited Enoc Gusman DO 01/18/2025 Bamboo flowsheet [facility] [address] [place] [address] Enoc Gusman DO from Last 3 Months Family History [...] EDT Office Visit [facility] [address] [address] Yadi Mathis PA [address] [facility] [place] [address] 05/18/2025 8:40 AM EDT Office Visit [facility] OB [address] [phone] Enoc Gusman DO [address] [facility] [facility] [place] [address] Procedures Procedure Name Priority Date/Time Associated Diagnosis Comments ALL ANTI-MULLERIAN HORMONE Routine 01/18 1:02 PM EDT ALL DEHYDROEPIANDROSTERONE Routine 01/18 1:02 PM EDT TBH PROLACTIN Routine 01/18/2025 1:02 PM EDT ALL FOLLICLE STIMULATING HORMONE Routine 01/18/2025 1:02 PM EDT ALL LUTEINIZING HORMONE Routine 01/19/20 1:02 PM EDT ALL DHEA SULFATE Routine 01/18/2025 1:02 PM EDT ALL THYROXINE (T4) FREE Routine 01/19/20 1:02 PM EDT ALL CBC WITH AUTO DIFF Routine 1:02 PM EDT TBH PREG QUANT HCG Routine 01/18/2025 1: 02 PM EDT ALL THYROID STIM HORMONE Routine 025 1:02 PM EDT MLR HEMOGLOBIN A1C Routine 01/18/2025 1: 02 PM EDT from Last 3 Months Results * TBH PROLACTIN (01/18/2025 1:02 PM EDT) PROLACTIN 6.2 4.8 - 33.4 ng/mL TBH Comment: Performed at: [facility] [address] [id number] Steam Clean Machine Operator: Marv Stewart PhD, Phone: [phone] 01/18/2025 1:02 PM EDT 01/18/2025 1:04 PM EDT Narrative CLINISYNC - 01/19/2025 4:14 AM EDT Enoc Naseem DO CLINISYNC Final Result [facility] * TBH PREG QUANT HCG (01/18/2025 1:02 PM EDT) HCG QUANTITATIVE <1 mIU/mL TBH Comment: 5-50 0.2-1 WEEK 50-500 1-2 WEEKS 100-5,000 2-3 WEEKS 500-10,000 3-4 WEEKS 1,000-50,000 4-5 WEEKS 10,000-100,000 5-6 WEEKS 15,000-200,000 6-8 WEEKS 10,000-100,000 2-3 MONTHS 01/18/2025 1:02 PM EDT 01/18/2025 1:04 PM EDT Narrative CLINISYNC - 01/18/2025 1:41 PM EDT us Enoc Naseem DO CLINISYNC Final Result Performing Organization Address [facility]/ZIP Co de Phone Number [facility] * (ABNORMAL) MLR HEMOGLOBIN A1C (01/18/2025 1:02 PM EDT) GLYCOHEMOGLOBIN A1C 9.8(H) 4.5 - 6.2 % TB Comment: ADA RECOMMENDED LIMIT 4.0 - 6.0 ADA THERAPEUTIC TARGET < 7.0 ACTION SUGGESTED > 7.0 ESTIMATED AVERAGE GLUCOSE 235 mg/dL TB 01/18/2025 1:02 PM EDT 01/18/2025 1:04 PM EDT Narrative CLINISYNC - 01/18/2025 1:27 PM EDT Enocellie Ryano DO CLINISYNC Final Result Performing Organization Address [facility] Co de Phone Number CLINISYNC TB * ALL THYROXINE (T4) FREE (01/18/2025 1:02 PM EDT) FREE T4 1.11 0.76 - 1.46 ng/dL TB 01/18/2025 1:02 PM EDT 01/18/2025 1:04 PM EDT Narrative CLINISYNC - 01/18/2025 1:58 PM EDT Enoc Ryano DO CLINISYNC Final Result Performing Organization Address [facility] Co de Phone Number CLINANNABEL[facility] TB * ALL THYROID STIM HORMONE (01/18/2025 1:02 PM EDT) THYROID STIMULATING HORMONE 2.182 0.358 - 3.740 uIU/mL TB 01/18/2025 1:02 PM EDT 01/18/2025 1:04 PM EDT Narrative CLINISYNC - 01/18/2025 1:41 PM EDT Enoc Ryano DO CLINISYNC Final Result Performing Organization Address [facility]/ZIP Co de Phone Number [facility] * ALL LUTEINIZING HORMONE (01/18/2025 1:02 PM EDT) LUTEINIZING HORMONE(LH) 7.3 . mIU/mL TBH Comment: Adult Female Range Follicular phase 2.4 - 12.6 Ovulation phase 14.0 - 95.6 Luteal phase 1.0 - 11.4 Postmenopausal 7.7 - 58.5 01/18/2025 1:02 PM EDT 01/18/2025 1:04 PM EDT Narrative CLINISYNC - 01/19/2025 4:14 AM EDT Enoc Naseem DO CLINISYNC Final Result Performing Organization Address [facility] Co de Phone Number [facility] * ALL FOLLICLE STIMULATING HORMONE (01/18/2025 1:02 PM EDT) FSH 6.7 . mIU/mL TBH Comment: Adult Female Range Follicular phase 3.5 - 12.5 Ovulation phase 4.7 - 21.5 Luteal phase 1.7 - 7.7 Postmenopausal 25.8 - 134.8 01/18/2025 1:02 PM EDT 01/18/2025 1:04 PM EDT Narrative CLINISYNC - 01/19/2025 4:14 AM EDT Enoc Naseem DO CLINISYNC Final Result Performing Organization Address City/[facility] Co de Phone Number [facility] * ALL DHEA SULFATE (01/18/2025 1:02 PM EDT) DHEA-SULFATE 200.0 84.8 - 378.0 ug/dL TBH 01/18/2025 1:02 PM EDT 01/18/2025 1:04 PM EDT Narrative CLINISYNC - 01/19/2025 4:14 AM EDT Enoc Naseem DO CLINISYNC Final Result Performing Organization Address City/[facility]/ZIP Co de Phone Number [facility] * ALL DEHYDROEPIANDROSTERONE (01/18/2025 1:02 PM EDT) Pathologist [facility] DHEA, SERUM 206 31 - 701 ng/dL TBH Comment: This test was developed and its performance characteristics determined by [facility]. It has not been cleared or approved by the Food and Drug Administration. Performed at: [facility] [address] [id number] Steam Clean Machine Operator: Alex Lujan MD, Phone: [phone] 01/18/2025 1:02 PM EDT 01/18/2025 1:04 PM EDT Narrative CLINISYNC - 01/21/2025 12:09 PM EDT Enoc Naseem DO CLINISYNC Final Result [facility] * (ABNORMAL) ALL CBC WITH AUTO DIFF (01/18/2025 1:02 PM EDT) Pathologist [facility] TB WBC 9.6 4.0 - 11.0 10 3/uL TBH TBH RBC 4.47 4.20 - 5.40 10 6/uL TBH TBH HGB 13.9 12.0 - 16.0 g/dL TBH TBH HCT 38.9 36.0 - 48.0 % TBH TBH MCV 87.0 81.0 - 99.0 fL TBH TBH MCH 31.1 26.7 - 34.0 pg TBH TBH MCHC 35.7(H) 29.9 - 35.2 g/dL TBH TBH RDW 13.5 11.0 - 15.0 % TBH TBH PLT 268 150 - 450 10 3/uL TBH TBH MPV 9.5 9.5 - 13.5 fL TBH NEUTROPHILS PERCENT AUTO 66.9 43.0 - 75.0 % TBH LYMPHOCYTES PERCENT AUTO 23.3 20.5 - 60.0 % TBH MONOCYTES PERCENT AUTO 5.2 1.7 - 12.0 % TBH TBH EO % 3.4 0.9 - 7.0 % TBH BASOPHILS PERCENT AUTO 0.6 0.2 - 2.0 % TBH IMMATURE GRANULOCYTES PCT AUTO 0.6(H) 0.0 - 0.5 % TBH NEUTROPHILS ABSOLUTE AUTO 6.4 1.4 - 6.5 10 3/uL TBH LYMPHOCYTES ABSOLUTE AUTO 2.2 1.2 - 3.8 10 3/uL TBH MONOCYTES ABSOLUTE AUTO 0.5 0.3 - 0.8 10 3/uL TBH TBH EO # 0.3 0.0 - 0.7 10 3/uL TBH BASOPHILS ABSOLUTE AUTO 0.1 0.0 - 0.1 10 3/uL TBH IMMATURE GRANULOCYTES ABS AUTO 0.06(H) 0.00 - 0.03 10 3/uL TBH 01/18/2025 1:02 PM EDT 01/18/2025 1:04 PM EDT Narrative CLINISYNC - 01/18/2025 1:45 PM EDT us Enoc Ryano DO CL[facility]NC Final Result [facility] * ALL ANTI-MULLERIAN HORMONE (01/18/2025 1:02 PM EDT) ANTI-MULLERIAN HORMONE (AMH) 0.522 . ng/mL TBH Comment: For assays employing antibodies, the possibility exists for interference by heterophile antibodies in the samples.1 1.Jose Cohn. Interferences in Immunoassays - still a threat. Clin. Chem. 2000; 46: 2366-5894. This test was developed and its performance characteristics determined by [facility]. It has not been cleared or approved by the Food and Drug Administration. Reference Range: Females 31 - 35y: 0.66 - 8.75 Median 3.00 AMH concentrations of >= 1.06 ng/mL is correlated with a better response to ovarian stimulation, produced more retrievable oocytes and higher odds of live according to Gleicher et al. Fertility and Sterility. 2010: 94:3026-2275. The current AMH test method correlates with the study method with a slope of 0.94. Females at risk of ovarian hyperstimulation syndrome or polycystic ovarian syndrome (PCOS) may exhibit elevated serum AMH concentrations. AMH levels from PCOS patients may be 2 to 5 fold higher than age-appropriate reference interval values. Granulosa cell tumors of the ovary may secrete AMH along with other tumor markers. Elevated AMH is not specific for malignancy, and the assay should not be used exclusively to diagnose or exclude an AMH-secreting ovarian tumor. Performed at: [facility] [address] [place] [id number] Steam Clean Machine Operator: Yohan Davidson MD, Phone: [phone] 01/18/2025 1:02 PM EDT 01/18/2025 1:04 PM EDT Narrative CLINISYNC - 01/22/2025 2:09 AM EDT us Enoc Naseem DO CLINISYNC Final Result [facility] from Last 3 Months Insurance [employer] Care Teams Director Public Service Relationship Specialty Start Date End Date Marla Fritz MD [address] [place] [address] PCP - General Family Medicine 02/22/23
--- OUTSIDE RECORDS SUMMARY | 2025-01-23 10:10 | XMS_ITS | Encounter Summary ---
Author Organization [facility] Address [address] [place] [address] Care Team Providers Care Floor Person Name Role Phone Marla Fritz MD Primary Care Provider + [phone] Encounter Details Date Type Department Care Team (Late st Contact Info) Description 04/22/2023 Clinisync Result Encounter [facility] External Department Unsolicited Yadi Morgan PA [address] [place] [address] [place] [address] Social History Tobacco Use Types Packs/Day Years [...] EDT Office Visit [facility] BCP OB [address] [place] [phone] Yadi Morgan, PA [address] [facility] [place] [address] 05/18/2025 8:40 AM EDT Office Visit [facility] BCP OB [address] [place] [phone] Enoc Gusman, DO [address] [facility] [place] [address] documented as of this encounter Procedures Procedure [...] EDT Narrative 04/22/2023 8:54 AM EDT The [address] [address] Ultrasound Report Signed Patient: MALLORY BERMEO MR#: [id number] : 1990 Acct:[id number] Age/Sex: 32 / F ADM Date: 04/22/23 Loc: US Attending Dr: Yadi Morgan Ordering Physician: Yadi Morgan Date of Service: 04/22/23 Procedure(s): US pelvis transvaginal Accession Number(s): [id number] cc: Yadi Morgan; MARLA FRITZ [address] [address] Patient Name: MALLORY BERMEO MRN: [id number] date: 1990 Sex: F Assigned Patient Location: US Current Patient Location: [place] Accession/Order Number: [id number] Exam Date: 04/22/2023 08:00 Report Date: 04/22/2023 [...] Fuentes M.D. Signed By: 04/22/2356 DD/ TD/TT: [employer] Administrator: Procedure Note Radiology, Radiologist, MD - 04/22/2023 The [place] [id number] Ultrasound Report Signed Patient: MALLORY BERMEO RMR#: [id number] : 1990Acct:[id number] Age/Sex: 32 / FADM Date: 04/22/23 Loc: US Attending Dr: Yadi Morgan Ordering Physician: Yadi Morgan Date of Service: 04/22/23 Procedure(s): US pelvis transvaginal Accession Number(s): [id number] cc: Yadi Morgan; MARLA FRITZ [place] [address] Patient Name: MALLORY BERMEO MRN: [id number] date: 1990 Sex: F Assigned Patient Location: US Current Patient Location: US Accession/Order Number: [id number] Exam Date: 04/22/2023 08:00 Report Date: 04/22/2023 [...] Fuentes M.D. Signed By:04/22/23855 DD/ 3 TD/TT: [employer] Administrator: Yadi AL [facility] IMAGING Final Result * ALL THYROXINE (T4) FREE (04/22/2023 8:38 AM EDT) FREE T4 0.99 0.76 - 1.46 ng/dL TBH 04/22/2023 8:38 AM EDT 04/22/2023 8:41 AM EDT Narrative CLINISYNC - 04/22/2023 10:10 AM EDT us Yadi ELENAISYDENNY Final Result Performing Organization Address [facility] Co de Phone Number CLINISYNC TB * [...] Yadi ELENAISYDENNY Final Result Performing Organization Address [facility] Co de Phone Number CLINISYNC TB * ALL THYROID STIM HORMONE (04/22/2023 8:38 AM EDT) THYROID STIMULATING HORMONE 3.134 0.358 - 3.740 uIU/mL TBH 04/22/2023 8:38 AM EDT 04/22/2023 8:41 AM EDT Narrative CLINISYNC - 04/22/2023 9:50 AM EDT us Yadi SYED Final Result Performing Organization Address City/[facility] Co de Phone Number CLINISYNC TB * [...] Yadi SYED Final Result Performing Organization Address [facility] Co de Phone Number [facility] * [facility] APTT (04/22/2023 8:38 AM EDT) PARTIAL THROMBOPLASTIN TIME 30.3 22.3 - 36.2 sec TB 04/22/2023 8:38 AM EDT 04/22/2023 8:41 AM EDT Narrative CLINISYNC - 04/22/2023 9:30 AM EDT Yadi SYED Final Result Performing Organization Address [facility] Phone Number [facility] * [facility] PROTHROMBIN TIME INR W/O COUM (04/22/2023 8:38 AM EDT) PROTHROMBIN TIME 10.2 9.0 - 11.6 sec TB TB INR 0.96 TBH Comment: DESIRED INR: 2.0-3.0 CONDITIONS NOT LISTED BELOW 2.5-3.5 FOR PROSTHETIC HEART VALVE REPLACEMENT 2.5-3.5 RECURRENT THROMBOSIS 04/22/2023 8:38 AM EDT 04/22/2023 8:41 AM EDT Narrative CLINISYNC - 04/22/2023 9:30 AM EDT Yadi SYED Final Result Performing Organization Address [facility] Co de Phone Number CLINISYNC TBH * (ABNORMAL) ALL CBC WITH AUTO DIFF (04/22/2023 8:38 AM EDT) [facility] TB WBC 9.2 4.0 - 11.0 10 [...] on filedocumented in this encounter Care Teams Floor Person Relationship Specialty Start Date End Date Marla Fritz MD [address] [place] [address] PCP - General Family Medicine 02/22/23 documented as of this encounter
--- OUTSIDE RECORDS SUMMARY | 2025-01-23 10:10 | XMS_ITS | Encounter Summary ---
Author Organization [facility] Address [address] [place] [address] Care Team Providers Care Synthetic Staple Extruder Name Role Phone Marla Fritz MD Primary Care Provider [phone] Source Comments In the event this information is protected by the Federal Confidentiality of Alcohol and Drug AbusePatient Records regulations: The Federal rules restrict any use of the information to criminally investigate or prosecute any alcohol or drug abuse patient.[facility] Encounter Details Date Type Department Care Team (Late st Contact Info) Description 01/13/2025 Patient Msg [facility] [address] [id number] Provider, Ccsejal Please Read: Genetic Testing Information Social History Tobacco Use Types Packs/Day Years Used Date Smoking Tobacco: Never Assessed Area Deprivation Index Answer Date Marco A rded National Score (1-100), lower number is lower ri sk 81 01/13/2025 State Score (1-10), lower number is lower risk 7 01/13/2025 Data from: https://www.neigh borhoodatlas.medicine.[facility].edu/. Last address used for calculation [address] [...] on filedocumented in this encounter Care Teams Synthetic Staple Extruder Relationship Specialty Start Date End Date Marla Fritz MD [address] [place] [phone] PCP - General Family Medicine 01/04/25 documented as of this encounter
--- OUTSIDE RECORDS SUMMARY | 2025-01-23 10:10 | XMS_ITS | Encounter Summary ---
Author Organization [facility] Address [address] [place] [address] Care Team Providers Care Coat Operator Name Role Phone Marla Fritz MD Primary Care Provider [phone] Source Comments In the event this information is protected by the Federal Confidentiality of Alcohol and Drug AbusePatient Records regulations: The Federal rules restrict any use of the information to criminally investigate or prosecute any alcohol or drug abuse patient.[facility] Encounter Details Date Type Department Care Team (Late st Contact Info) Description 01/21/2025 Patient Msg Genetic [facility] [address] [place], [place] [phone] Falguni, [place], [place] [address] [place], [place] [phone] Test Results Social History Tobacco Use Types Packs/Day Years Used Date Smoking Tobacco: Never Assessed Area Deprivation Index Answer Date Marco A rded National Score (1-100), lower number is lower ri sk 81 01/13/2025 State Score (1-10), lower number is lower risk 7 01/13/2025 Data from: https://www.neigh borhoodatlas.medicine.[facility].edu/. Last address used for calculation [address] [...] on filedocumented in this encounter Care Teams Coat Operator Relationship Specialty Start Date End Date Marla Fritz MD [address] [place] [phone] PCP - General Family Medicine 01/04/25 documented as of this encounter
--- OUTSIDE RECORDS SUMMARY | 2025-01-23 10:10 | XMS_ITS | Encounter Summary ---
Author Organization [facility] Address [address] [place] [address] Care Team Providers Care Desktop Support Specialist Name Role Phone Marla Fritz MD Primary Care Provider [phone] Encounter Details Date Type Department Care Team (Late st Contact Info) Description 01/18/2025 Bamboo flowsheet [facility] [address] [place] [phone] Enoc Gusman, DO [address] [place], [place] [phone] Social History Tobacco Use Types Packs/Day Years [...] AM EDT Office Visit [facility] [address] [place] [address] Yadi Mathis PA [address] [place] [address] 05/18/2025 8:40 AM EDT Office Visit [facility] [address] [place] [phone] Enoc Gusman DO [address] [address] [place], [place] [phone] documented as of this encounter Visit Diagnoses Not on filedocumented in this encounter Care Teams Desktop Support Specialist Relationship Specialty Start Date End Date Marla Fritz MD [address] [place] [phone] PCP - General Family Medicine 02/22/23 documented as of this encounter
--- OUTSIDE RECORDS SUMMARY | 2025-01-23 10:10 | XMS_ITS | Encounter Summary ---
Author Organization [facility] Address [address] [place] [address] Care Team Providers Care Director Meetings Name Role Phone Marla Fritz MD Primary Care Provider Source Comments In the event this information is protected by the Federal Confidentiality of Alcohol and Drug AbusePatient Records regulations: The Federal rules restrict any use of the information to criminally investigate or prosecute any alcohol or drug abuse patient.[facility] Reason for Visit * Reason Comments Results Encounter Details Date Type Department Care Team (Late st Contact Info) Description 01/21/2025 Telephone [facility] [address] [phone] Falguni, [place], [place] [address] [place] [address] Results Social History Tobacco Use Types Packs/Day Years Used Date Smoking Tobacco: Never Assessed Area Deprivation Index Answer Date Marco A rded National Score (1-100), lower number is lower ri sk 81 01/13/2025 State Score (1-10), lower number is lower risk 7 01/13/2025 Data from: https://www.neigh borhoodatlas.medicine.[facility].edu/. Last address used for calculation [address] 01/13/2025 Comments Unknown Sex and Gender Information Value Date Recorded Sex Assigned at Not on file Legal Sex Female 11:47 AM EDT Gender Identity Not on file Sexual Orientation Not on file documented as of this encounter Miscellaneous Notes * Telephone Encounter - Noss, [place], [place] - 01/21/2025 10:43 AM EDT Patient name and was confirmed at initiation of discussion. RESULTS Katherin Olvera's Multi-Cancer panel through [facility] was negative for a pathogenic variant. This includes both the MLH1 and CDKN2A familial pathogenic variants. A scanned copy of this test report is available through [facility] chart review under the lab tab, listedas external lab - miscellaneous lab. RISK ASSESSMENT AND PLAN This is a true negative, meaning that the patient did not inherit either pathogenic variant responsible for Echevarria Syndrome or MLKZ2R-cazffjnenp Cancer Risk in this family. These results also mean that the patient's children are not at risk to inherit the familial mutation from the patient. However, other family members including siblings could still have either variantand should consider their own testing. The remainder of the Multi Cancer panel through [facility] was also negative. This included: AIP, ALK,APC, STEFAN, AXIN2, BAP1, BARD1, BLM, BMPR1A, BRCA1, BRCA2, BRIP1, CDC73, CDH1, CDK4, CDKN1B, CDKN2A, CHEK2, CTNNA1, DICER1, EGFR, EPCAM, FH, FLCN, GREM1, HOXB13, KIT, LZTR1, MAX, MBD4, MEN1, MET, MITF,MLH1, MSH2, MSH3, MSH6, MUTYH, NF1, NF2, NTHL1, PALB2, PDGFRA, PMS2, POLD1, POLE, POT1, NWUPC5V, PTCH1, PTEN, RAD51C, RAD51D, RB1, RET, SDHA, SDHAF2, SDHB, SDHC, SDHD, SMAD4, SMARCA4, SMARCB1, SMARCE1, STK11, SUFU, YNJR535, TP53, TSC1, TSC2, VHL. Cancer screening should include the guidance of the patient's primary care provider and may reflectpersonal risk factors. After discussing the implications of these results with regards to the patients cancer risks and the cancer risks for their family members, a copy of this discussion, a copy of their genetic testing results and educational information regarding these results will be mailed to the patient. [place], [place] [facility] Licensed, Certified Genetic Counselor [facility] CC: Dr. Hellen Peña CC BY US MAIL: Dr. Marla Fritz SEND TO PATIENT: Copy of Encounter, Genetic Testing Results documented in this encounter Plan of Treatment Not on file documented as of this encounter Visit Diagnoses Not on filedocumented in this encounter Care Teams Director Meetings Relationship Specialty Start Date End Date Marla Fritz MD [address] [place] [phone] PCP - General Family Medicine 01/04/25 documented as of this encounter
--- OUTSIDE RECORDS SUMMARY | 2025-01-23 10:10 | XMS_ITS | Encounter Summary ---
Author Organization [facility] Address [address] [place] [address] Care Team Providers Care Boiler Repairman Name Role Phone Marla Fritz MD Primary Care Provider [phone] Encounter Details Date Type Department Care Team (Late st Contact Info) Description 01/18/2025 [facility] Result Encounter [facility] External Department Unsolicited Enoc Gusman, DO [address] [facility] [address] [place] [address] Social History Tobacco Use Types Packs/Day Years [...] EDT Office Visit [facility] [address] [place] [address] Yadi Mathis PA [address] [place], [place] [phone] 05/18/2025 8:40 AM EDT Office Visit [facility] [address] [place] [address] Enoc Gusman, DO [address] [facility] [place] [address] documented as of this encounter Procedures Procedure Name Priority Date/Time Associated Diagnosis Comments TBH PROLACTIN Routine 01/18/2025 1:02 PM EDT TBH PREG QUANT HCG Routine 01/18/2025 1: 02 PM EDT MLR HEMOGLOBIN A1C Routine 01/18/2025 1: 02 PM EDT ALL THYROXINE (T4) FREE Routine 01/19/20 1:02 PM EDT ALL THYROID STIM HORMONE Routine 025 1:02 PM EDT ALL LUTEINIZING HORMONE Routine 01/19/20 1:02 PM EDT ALL FOLLICLE STIMULATING HORMONE Routine 01/18/2025 1:02 PM EDT ALL DHEA SULFATE Routine 01/18/2025 1:02 PM EDT ALL DEHYDROEPIANDROSTERONE Routine 01/18 1:02 PM EDT ALL CBC WITH AUTO DIFF Routine 1:02 PM EDT ALL ANTI-MULLERIAN HORMONE Routine 01/18 1:02 PM EDT documented in this encounter Results * ALL ANTI-MULLERIAN HORMONE (01/18/2025 1:02 PM EDT) ANTI-MULLERIAN HORMONE (AMH) 0.522 . ng/mL [facility] Comment: For assays employing antibodies, the possibility exists for interference by heterophile antibodies in the samples.1 1.Jose Mclaughlin Interferences in Immunoassays - still a threat. Clin. Chem. 2000; 46: 2763-2068. This test was developed and its performance characteristics determined by [employer]. It has not been cleared or approved by the Food and Drug Administration. Reference Range: Females 31 - 35y: 0.66 - 8.75 Median 3.00 AMH concentrations of >= 1.06 ng/mL is correlated with a better response to ovarian stimulation, produced more retrievable oocytes and higher odds of live according to Kanchan et al. Fertility and Sterility. 2010: 94:9279-6572. The current AMH test method correlates with [...] exclude an AMH-secreting ovarian tumor. Performed at: [facility] [address] [place] [id number] Plastic Bubble Packer: Yohan Davidson MD, Phone: [phone] 01/18/2025 1:02 PM EDT 01/18/2025 1:04 PM EDT Narrative CLINISYNC - 01/22/2025 2:09 AM EDT us Enoc Naseem DO CLINISYNC Final Result [facility] * ALL DEHYDROEPIANDROSTERONE (01/18/2025 1:02 PM EDT) DHEA, SERUM 206 31 - 701 ng/dL TB Comment: This test was developed and its performance characteristics determined by [facility]. It has not been cleared or approved by the Food and Drug Administration. Performed at: [address] [id number] Plastic Bubble Packer: Alex Lujan MD, Phone: [phone] 01/18/2025 1:02 PM EDT 01/18/2025 1:04 PM EDT Narrative CLINISYNC - 01/21/2025 12:09 PM EDT us Enoc Naseem DO CLINISYNC Final Result Performing Organization Address [facility]/ZIP Co de Phone Number [facility] * TBH PROLACTIN (01/18/2025 1:02 PM EDT) PROLACTIN 6.2 4.8 - 33.4 ng/mL [facility]H Comment: Performed at: [address] [id number] Plastic Bubble Packer: Marv Stewart PhD, Phone: [phone] 01/18/2025 1:02 PM EDT 01/18/2025 1:04 PM EDT Narrative CLINISYNC - 01/19/2025 4:14 AM EDT us Enoc Naseem DO CLINISYNC Final Result Performing Organization Address [facility]/ZIP Co de Phone Number CLINISYNM TB * ALL FOLLICLE STIMULATING HORMONE (01/18/2025 1:02 PM EDT) FSH 6.7 . mIU/mL TBH Comment: Adult Female Range Follicular phase 3.5 - 12.5 Ovulation phase 4.7 - 21.5 Luteal phase 1.7 - 7.7 Postmenopausal 25.8 - 134.8 01/18/2025 1:02 PM EDT 01/18/2025 1:04 PM EDT Narrative CLINISYNC - 01/19/2025 4:14 AM EDT us Enoc Naseem DO CLINISYNC Final Result Performing Organization Address City/[facility] Co de Phone Number [facility] * ALL LUTEINIZING HORMONE (01/18/2025 1:02 PM EDT) LUTEINIZING HORMONE(LH) 7.3 . mIU/mL TBH Comment: Adult Female Range Follicular phase 2.4 - 12.6 Ovulation phase 14.0 - 95.6 Luteal phase 1.0 - 11.4 Postmenopausal 7.7 - 58.5 01/18/2025 1:02 PM EDT 01/18/2025 1:04 PM EDT Narrative CLINISYNC - 01/19/2025 4:14 AM EDT Enoc Naseem DO CLINISYNC Final Result Performing Organization Address [facility] Co de Phone Number [facility] * ALL DHEA SULFATE (01/18/2025 1:02 PM EDT) DHEA-SULFATE 200.0 84.8 - 378.0 ug/dL TB 01/18/2025 1:02 PM EDT 01/18/2025 1:04 PM EDT Narrative CLINISYNC - 01/19/2025 4:14 AM EDT Enoc Naseem DO CLINISYNC Final Result Performing Organization Address [facility] Co de Phone Number [facility] * ALL THYROXINE (T4) FREE (01/18/2025 1:02 PM EDT) FREE T4 1.11 0.76 - 1.46 ng/dL TBH 01/18/2025 1:02 PM EDT 01/18/2025 1:04 PM EDT Narrative CLINISYNC - 01/18/2025 1:58 PM EDT Enoc Naseem DO CLINISYNC Final Result Performing Organization Address City/[facility]/ZIP Co de Phone Number [facility] * (ABNORMAL) ALL CBC WITH AUTO DIFF (01/18/2025 1:02 PM EDT) [facility] TB WBC 9.6 4.0 - 11.0 10 [...] - 01/18/2025 1:45 PM EDT us Enoc Naseem DO CLINISYNC Final Result [facility] * TBH PREG QUANT HCG (01/18/2025 1:02 PM EDT) Pathologist [facility] HCG QUANTITATIVE <1 mIU/mL TBH Comment: 5-50 0.2-1 WEEK 50-500 1-2 WEEKS 100-5,000 2-3 WEEKS 500-10,000 3-4 WEEKS 1,000-50,000 4-5 WEEKS 10,000-100,000 5-6 WEEKS 15,000-200,000 6-8 WEEKS 10,000-100,000 2-3 MONTHS 01/18/2025 1:02 PM EDT 01/18/2025 1:04 PM EDT Narrative CLINISYNM - 01/18/2025 1:41 PM EDT Enoc Naseem DO CLINISYNC Final Result [facility] * ALL THYROID STIM HORMONE (01/18/2025 1:02 PM EDT) Pathologist [facility] THYROID STIMULATING HORMONE 2.182 0.358 - 3.740 uIU/mL TB 01/18/2025 1:02 PM EDT 01/18/2025 1:04 PM EDT Narrative CLINISYNC - 01/18/2025 1:41 PM EDT Enoc Naseem DO CLINISYNM Final Result [facility] * (ABNORMAL) MLR HEMOGLOBIN A1C (01/18/2025 1:02 PM EDT) GLYCOHEMOGLOBIN A1C 9.8(H) 4.5 - 6.2 % TB Comment: ADA RECOMMENDED LIMIT 4.0 - 6.0 ADA THERAPEUTIC TARGET < 7.0 ACTION SUGGESTED > 7.0 ESTIMATED AVERAGE GLUCOSE 235 mg/dL TBH 01/18/2025 1:02 PM EDT 01/18/2025 1:04 PM EDT Narrative CLINISYNC - 01/18/2025 1:27 PM EDT us Enoc Gusman DO CLINISYNC Final Result [facility] documented in this encounter Visit Diagnoses Not on filedocumented in this encounter Care Teams Boiler Repairman Relationship Specialty Start Date End Date Marla Fritz MD [address] [place] [phone] PCP - General Family Medicine 02/22/23 documented as of this encounter
--- OUTSIDE RECORDS SUMMARY | 2025-01-23 10:10 | XMS_ITS | Encounter Summary ---
Author Organization [facility] Address [address] [place] [address] Care Team Providers Care Paper Sales Manager Name Role Phone Marla Fritz MD Primary Care Provider + [phone] Encounter Details Date Type Department Care Team (Late st Contact Info) Description 04/07/2023 Abstract [facility] [address] [place] [address] Yadi Mathis PA [address] [facility] [place] [address] Social History Tobacco Use Types Packs/Day Years [...] Office Visit [facility] [address] [place] [place] [address] Yadi Mathis PA [address] [facility] [place], [place] [phone] 05/18/2025 8:40 AM EDT Office Visit [facility] [address] [place] [phone] Enoc Gusman DO [address] [place], [place] [phone] documented as of this encounter Visit Diagnoses Not on filedocumented in this encounter Care Teams Paper Sales Manager Relationship Specialty Start Date End Date Marla Fritz MD [address] [place] [address] PCP - General Family Medicine 02/22/23 documented as of this encounter
--- OUTSIDE RECORDS SUMMARY | 2025-01-23 10:10 | XMS_ITS | Patient Health Record ---
Author Organization [facility] Address [address] [place] [address] Care Team Providers Care Older Adult Social Work Specialist Name Role Phone Marla Fritz Primary Care Provider ConMaggie hardy Qamar [phone] Allergies No Known Allergies Results Component Value Reference Range Notes UA DIP AUTO WO MICRO (07210) - IN OFFICE Reviewed date:11/10/2024 10:21:53 AM [...] neg NEG - NEG Control Present yes HEMOGLOBIN A1C - IN OFFICE Reviewed date:03/06/2024 08:29:19 AM Interpretation:7.6 Performing Lab: Notes/Report: 7.6 Reason For Referral No Information Medications Medication [...] Question Answer Notes Patient is a nonsmoker Alcohol Screen (Audit-C) Question Answer Notes Did you have a drink containing alcohol in the p ast year? Yes How often did you have 6 or more drinks on one occasion in the past year? Never (0 point) Points 0 Interpretation Negative Problems Problem Type SNOMED Code ICD Code Onset Dates Problem Status W/U Status Risk Notes Problem 77013109 Essential (prima ry) hypertension (I10) Active confirmed Problem 380631209 Hypothyroidism, unspecified (E03.9) Active confirmed Problem 29677117 Type 2 diabetes mellitus with hyperglycemia (E11.65) Active confirmed Problem 509162126 Morbid (severe) obesity due to excess calories (E66.01) Active confirmed Problem 083302992 Other obesity du e to excess calories (E66.09) Active confirmed Problem 232424346 Mixed hyperlipidemia (E78.2) Active confirmed Problem 54217565 Other chronic pa in (G89.29) Active confirmed Problem 70940058 Vitamin D deficiency (E55.9) Active confirmed Problem 120031023 BMI 37.0-37.9, adult (Z68.37) Active confirmed Problem 792635155 BMI 39.0-39.9,ad ult (Z68.39) Active confirmed Problem 64532165 Type 2 diabetes mellitus with hyperglycemia, without long-term current use of insulin (E11.65) Active confirmed Problem 036901536 Type 2 diabetes mellitus without complication, without long-term current use of insulin (E11.9) Active confirmed Problem 771327905 Mild intermitten t asthma, unspecified whether complicated (J45.20) Active confirmed Problem 874292905 Body mass index [BMI] 38.0-38.9, adult (Z68.38) Active confirmed Vital Signs Heart Rate 92 /min 11/10/2024 Respiratory Rate 16 /min 11/10/2024 Oximetry 96 % 11/10/2024 Blood pressure diastolic 80 mm Hg 11/10/2024 Height 67 in 11/10/2024 Blood pressure systolic 132 mm Hg 11/10/2024 Weight 241.5 lbs 11/10/2024 BMI 37.82 kg/m2 11/10/2024 Encounters Encounter Location Date Provider Diagnosis [address] [place] [address] 11/10/2024 Maggie Rynski Nausea R11.0 ; Other specified disorders of teeth and supporting structures K08.89 ; Type 2 diabetes mellitus without complication, without long-term current use of insulin E11.9 ; Mild intermittent asthma, unspecified whether complicated J45.20 ; Vitamin D deficiency E55.9 ; Essential (primary) hypertension I10 and Hypothyroidism, unspecified E03.9 [facility] [address] [place] [address] 03/05/2024 Marla Fritz Type 2 diabetes mellitus without complication, without long-term current use of insulin E11.9 and BMI 39.0-39.9,adult Z68.39 [facility] [address] [place] [address] 08/30/2024 Marla Fritz [facility] [address] [place] [address] 08/30/2024 Marla Fritz Type 2 diabetes mellitus [...] Bishop es, 02/10/2025 09:15:00 AM, [address] [place], [address], Insurance Providers Payer Name Payer Address Payer Phone Subscriber Number Group Number Insured Name Patient Relationship to Insured Coverage Start Date Coverage End Date My Rental Units [employer] [address] [place] [phone] [id number] Katherin Olvera Self - patient is the insured Medical (General) History Medical History History ICD Code Diabetes Asthma Irregular, heavy periods H/o low back pain COVID 04/18 Sinusitis, unspecified chronicity, unspe cified location J32.9 hyperlipidemia HTN Surgical History Surgery Date(Month/Year) colonoscopy 2010
--- OUTSIDE RECORDS SUMMARY | 2025-01-23 10:10 | XMS_ITS | Clinical Summary ---
Author Organization [employer] Address [id number] [address] [place] [address] Care Team Providers Care Cable Armorer Name Role Phone Marla Fritz MD Primary [...] structures Type 2 diabetes mellitus without complications ([facility]) Mild intermittent asthma, uncomplicated Vitamin D deficiency, [...] - 1.60 ng/dL 11/28/2024 4:05 PM EDT [facility] TSH 3.53 0.49 - 4.67 uIU/mL 11/28/2024 4:05 PM EDT [facility] Blood Venous blood / Unknown Venipuncture / Unknown 11/28/2024 9:58 AM EDT 11/28/2024 9:59 AM EDT Maggie Dover SOCIAL SERVICE COORDINATOR-CLERK ANALYST LAB BLOOD ORDERABLES F inal Result [facility] [address] [place] [address], * CBC auto differential (11/28/2024 9:58 AM EDT) WBC 8.5 4 - 11 x10E9/L 11/28/2024 3:41 PM EDT [facility] RBC Count 4.66 3.8 - 5.2 X10E12/L 11/28/2024 3:41 PM EDT [facility] Hemoglobin 14.3 11.7 - 15.5 g/dL 11/28/2024 3:41 PM EDT [facility] Hematocrit 40.9 35 - 47 % 11/28/2024 3:41 PM EDT [facility] MCV 88 80 - 100 fL 11/28/2024 3:41 PM EDT [facility] MCH 30.7 27 - 34 pg 11/28/2024 3:41 PM EDT [facility] MCHC 35.0 32 - 36 g/dL 11/28/2024 3:41 PM EDT [facility] RDW 14.3 11.5 - 15 % 11/28/2024 3:41 PM EDT [facility] Platelet Count 298 150 - 450 X10E9/L 11/28/2024 3:41 PM EDT [facility] MPV 7.9 7 - 12 fL 11/28/2024 3:41 PM EDT [facility] Neutrophils % 62.1 % 11/28/2024 3:41 PM EDT [facility] Lymphocytes % 29.5 % 11/28/2024 3:41 PM EDT [facility] Monocytes % 4.6 % 11/28/2024 3:41 PM EDT [facility] Eosinophils % 3.1 % 11/28/2024 3:41 PM EDT [facility] Basophils % 0.7 % 11/28/2024 3:41 PM EDT [facility] Neutrophils Absolute (A) 5.3 10*3/uL 11/28/2024 3:41 PM EDT [facility] Lymphocytes Absolute 2.5 10*3/uL 11/28/2024 3:41 PM EDT [facility] Monocytes Absolute 0.4 10*3/uL 11/28/2024 3:41 PM EDT [facility] Eosinophils Absolute 0.3 10*3/uL 11/28/2024 3:41 PM EDT [facility] Basophils Absolute 0.1 10*3/uL 11/28/2024 3:41 PM EDT [facility] Differential Type AUTOMATED DIFFERENTIAL 11/28/2024 3:41 PM EDT [facility] Blood Venous blood / Unknown Venipuncture / Unknown 11/28/2024 9:58 AM EDT 11/28/2024 9:59 AM EDT Maggie Dover SOCIAL SERVICE COORDINATOR-CLERK ANALYST LAB BLOOD ORDERABLES F inal Result [facility] [address] [place] [address], [place] [phone] * Microalbumin - Albumin: Creatinine Urine Ratio (11/28/2024 9:58 AM EDT) URINE CREATININE,RDM 151.60 mg/dL 11/28/2024 4:04 PM EDT [facility] MALB/CREAT RATIO 6.6 0.0 - 30.0 mg/g 11/28/2024 4:04 PM EDT [facility] MICROALBUMIN, URINE 1.0 0.0 - 1.9 mg/dL 11/28/2024 4:04 PM EDT [facility] Urine Urine specimen collection, clean catch / Unknown 11/28/2024 9:58 AM EDT 11/28/2024 9:59 AM EDT Maggie Dover SOCIAL SERVICE COORDINATOR-CLERK ANALYST URINE ORDERABLES Final Result Performing Organization Address City/[facility]/ZIP Co de Phone Number [facility] [address] [place] [address], * (ABNORMAL) Vitamin D 25 hydroxy (11/28/2024 9:58 AM EDT) VITAMIN D 25 HYD TOT 12.7(L) 30.0 - 100.0 ng/mL 11/28/2024 4:16 PM EDT [facility] Blood Venous blood / Unknown Venipuncture / Unknown 11/28/2024 9:58 AM EDT 11/28/2024 9:59 AM EDT [facility] - 11/28/2024 4:16 PM EDT Vitamin D status 25 [place] Vitamin D Deficiency <20 ng/mL Insufficiency 20-29 ng/mL Sufficiency 30-100 ng/mL Toxicity >100 ng/mL NOTE: A pediatric reference range has not been established by the support dba of this kit. The [place] [employer] recommends a Vitamin D level of = or >20ng/mL in infants and children. Maggie Dover SOCIAL SERVICE COORDINATOR-CLERK ANALYST LAB BLOOD ORDERABLES F inal Result [facility] [address] [place] [address], * (ABNORMAL) Lipid profile (11/28/2024 9:58 AM EDT) CHOLESTEROL 215(H) 150 - 200 mg/dL 11/28/2024 3:56 PM EDT [facility] TRIGLYCERIDE 285(H) 27 - 150 mg/dL 11/28/2024 3:56 PM EDT [facility] HDL CHOLESTEROL 44 >39 mg/dL 3:56 PM EDT [facility] Comment: HDL <40 mg/dL - High Risk HDL > or = 40mg/dL- Desirable HDL >60 mg/dL - Negative Risk LDL (CALC) 114 <130 mg/dL 11/28/2024 3:56 PM EDT [facility] Comment: LDL <100 mg/dL - Desirable LDL >160 mg/dL - High Risk CHOLESTEROL:HDL 4.9 1.0 - 5.0 3:56 PM EDT [facility] VERY LOW LIPOPROTEIN 57(H) 0 - 30 mg/dL 11/28/2024 3:56 PM EDT [facility] Blood Venous blood / Unknown Venipuncture / Unknown 11/28/2024 9:58 AM EDT 11/28/2024 9:59 AM EDT us Maggie Dover SOCIAL SERVICE COORDINATOR-CLERK ANALYST LAB BLOOD ORDERABLES F inal Result [facility] [address] [place] [address], [place] [phone] * (ABNORMAL) Comprehensive metabolic panel (11/28/2024 9:58 AM EDT) SODIUM 136 134 - 146 mmol/L 11/28/2024 3:56 PM EDT [facility] POTASSIUM 3.9 3.5 - 5.0 mmol/L 11/28/2024 3:56 PM EDT [facility] CHLORIDE 98 98 - 109 mmol/L 11/28/2024 3:56 PM EDT [facility] CARBON DIOXIDE 30 22 - 32 mmol/L 11/28/2024 3:56 PM EDT [facility] ANION GAP 8 5 - 15 mmol/L 11/28/2024 3:56 PM EDT [facility] BLOOD UREA NITROGEN 8 5 - 23 mg/dL 11/28/2024 3:56 PM EDT [facility] CREATININE 0.48 0.40 - 1.00 mg/dL 11/28/2024 3:56 PM EDT [facility] Comment:METHOD TRACEABLE TO IDSD STANDARD GLUCOSE 194(H) 65 - 99 mg/dL 11/28/2024 3:56 PM EDT [facility] CALCIUM 9.8 8.5 - 10.5 mg/dL 11/28/2024 3:56 PM EDT [facility] TOTAL PROTEIN 7.5 6.0 - 8.0 g/dL 11/28/2024 3:56 PM EDT [facility] ALBUMIN 4.0 3.2 - 5.3 g/dL 11/28/2024 3:56 PM EDT [facility] ALKALINE PHOSPHATASE 108 39 - 130 U/L 11/28/2024 3:56 PM EDT [facility] AST 22 <=41 U/L 11/28/2024 3:56 PM EDT [facility] ALT 23 <=31 U/L 11/28/2024 3:56 PM EDT [facility] BILIRUBIN,TOTAL 0.5 0.3 - 1.2 mg/dL 11/28/2024 3:56 PM EDT [facility] EGFR Non-Race Dependent >90 >=60 ml/min/1.7 3sq.m 11/28/2024 3:56 PM EDT [facility] Comment: Reported eGFR is based on the CKD-EPI 2020 equation that does not use a race coefficient. Blood Venous blood / Unknown Venipuncture / Unknown 11/28/2024 9:58 AM EDT 11/28/2024 9:59 AM EDT us Maggie Dover SOCIAL SERVICE COORDINATOR-CLERK ANALYST LAB BLOOD ORDERABLES F inal Result [facility] [address] [place] [address], [place] [phone] from Last 3 Months Insurance [address] [place] [address] [employer] * Guarantor: Katherin Olvera Caryn Account Type Relation to Patient Date of Phone Billing Address Workers Comp Self 1990 [address] [place] [address] WORKER'S COMPENSATION Care Teams Cable Armorer Relationship Specialty Start Date End Date Marla Fritz MD [address] [place] [phone] PCP - General Family Medicine 06/29/17
--- OUTSIDE RECORDS SUMMARY | 2025-01-23 10:10 | XMS_ITS | Encounter Summary ---
Author Organization [facility] Address [address] [place] [address] Care Team Providers Care Street Light Mechanic Name Role Phone Marla Fritz MD Primary Care Provider [phone] Encounter Details Date Type Department Care Team (Late st Contact Info) Description 01/20/2025 Telephone [facility] [address] [place] [phone] Kayce Wesley MA [address] [place] [address] Social History Tobacco Use Types Packs/Day Years [...] AM EDT documented as of this encounter Miscellaneous Notes * Telephone Encounter - Kayce Wesley MA - 01/20/2025 11:07 AM EDT Pt was called and A1C (9.8) results were shared w/patient. Pt was made aware that she is to contacther PCP and set up an appt to start a plan of care for Diabetic management. And as soon as her A1C is done to a [address] Gusman will begin fertility with patient. PVU. Advised again to please call her PCP's office and set up an appt to be seen to begin treating her A1C. And patient was advised labs will be sent to the PCP 's office. PVU Labs were sent to PCP Dr. Marla Fritz MD. . documented in this encounter Plan of Treatment Upcoming Encounters Date Type Department Care Team (Late st Contact Info) Description 02/02/2025 10:00 AM EDT Office Visit [facility] [address] [facility] [place] [address] Yadi Mathis PA [address] [facility] [address] [place], [facility] 05/18/2025 8:40 AM EDT Office Visit [facility] [address] [facility] [address] Enoc Gusman DO [address] [facility] [facility] [address] [place], [place] [phone] documented as of this encounter Visit Diagnoses Not on filedocumented in this encounter Care Teams Street Light Mechanic Relationship Specialty Start Date End Date Marla Fritz MD [address] [place] [phone] PCP - General Family Medicine 02/22/23 documented as of this encounter
--- OUTSIDE RECORDS SUMMARY | 2025-01-23 10:10 | XMS_ITS | Encounter Summary ---
Author Organization [facility] Address [address] [place] [id number] Care Team Providers Care Real Estate Sales Agent Name Role Phone Marla Fritz MD Primary Care Provider [phone] Source Comments In the event this information [...] lower risk 7 01/13/2025 Data from: [email or web address] Last address used for calculation [address] [...] on filedocumented in this encounter Care Teams Real Estate Sales Agent Relationship Specialty Start Date End Date Marla Fritz MD [address] [place] [phone] PCP - General Family Medicine 01/04/25 documented as of this encounter
== END 2025-01-23 10:08 | disposition home or self-care (01) ==
LOC: US 10:07
PROVIDERS: Family Provider Family Medicine; PCP Family Medicine; Visit Provider Obstetrics & Gynecology
DX: E28.2 Polycystic ovarian syndrome (principal); E07.9 Disorder of thyroid, unspecified; N97.0 Female infertility associated with anovulation; N92.6 Irregular menstruation, unspecified
CPT/HCPCS: 76830; 76856

== ENCOUNTER 2025-02-02 20:10 | Outpatient (REF) | payer OTHER, SELFPAY ==
--- OUTSIDE RECORDS SUMMARY | 2025-02-02 09:58 | XMS_ITS ---
Author Name Auto Generated Organization OHIP Care Team Providers Care City Planning Engineer Name Role Phone ANGY FRITZ Primary Care Unavailable ERENDIRA PEREZ Attending Unavailable RENUKA REED Referring Unavailable ANGY FRITZ Primary Care Unavailable ASHOK SHI Attending Unavailable ANGY FRITZ Primary Care Unavailable ANGY FRITZ Primary Care Unavailable [facility] [place] Attending Unavailable RAZA MORGAN Attending Unavailable PROBLEMS DATE TYPE CONDITION / CODE ATTENDING STATUS [facility] 01/13/2025 Active Family history o f gene mutation / Z84.81(ICD-10) NOSASHOK Solitario Active [facility] 01/13/2025 Active Family history o f colon cancer / Z80.0(ICD-10) NOSASHOK Solitario Active [facility] 01/13/2025 Active Family history o f ovarian cancer / Z80.41(ICD-10) NOSASHOK Solitario Active [facility] 11/28/2024 Unknown Nausea / R11.0(ICD-10) NA Active [facility] 11/28/2024 Unknown Other specified disorders of teeth and supporting structures / K08.89(ICD-10) [facility] 11/28/2024 Unknown Type 2 diabetes mellitus without complications / E11.9(ICD-10) [facility] 11/28/2024 Unknown Mild intermitten t asthma, uncomplicated / J45.20(ICD-10) [facility] 11/28/2024 Unknown Vitamin D defici ency, unspecified / E55.9(ICD-10) [facility] 11/28/2024 Unknown Essential (prima ry) hypertension / I10(ICD-10) [facility] 11/28/2024 Unknown Hypothyroidism, unspecified / E03.9(ICD-10) [facility] 05/26/2024 Unknown Unspecified inju ry of head, initial encounter / S09.90XA(ICD-10) ANA [facility] 05/26/2024 Unknown Head Injury / FREETEXT(AOF) ANA [facility] 05/26/2024 Unknown Head Injury / UNK(Unknown) ANA [facility] PROCEDURES No Procedure Records Found RESULTS CNPNitish Observed: 01/21/2025 12:00 AM Status: COMPLETED Source: [facility] Telephone (CALIINE) MALLORY BERMEO ([id number]) 1990 F Date Time Provider Department 01/21/25 ASHOK SHI During your visit today, we recorded the following information about you: Ashok Shi, 01/21/2025 10:53 AM Signed Patient name and was confirmed at initiation of discussion. RESULTS Mallory Bermeo's Multi-Cancer panel through [facility] was negative for a pathogenic variant. This includes both the MLH1 and CDKN2A familial pathogenic variants. A scanned copy of this test report is available through [employer] chart review under the lab tab, listed as external lab - miscellaneous lab. RISK ASSESSMENT AND PLAN This is a true negative, meaning that the patient did not inherit either pathogenic variant responsible for Echevarria Syndrome or SKEF1E-yrjmwcxbcv Cancer Risk in this family. These results also mean that the patient's children are not at risk to inherit the familial mutation from the patient. However, other family members including siblings could still have either variant and should consider their own testing. The remainder of the Multi Cancer panel through [facility] was also negative. This included: AIP, ALK, APC, STEFAN, AXIN2, BAP1, BARD1, BLM, BMPR1A, BRCA1, BRCA2, BRIP1, CDC73, CDH1, CDK4, CDKN1B, CDKN2A, CHEK2, CTNNA1, DICER1, EGFR, EPCAM, FH, FLCN, GREM1, HOXB13, KIT, LZTR1, MAX, MBD4, MEN1, MET, MITF, MLH1, MSH2, MSH3, MSH6, MUTYH, NF1, NF2, NTHL1, PALB2, PDGFRA, PMS2, POLD1, POLE, POT1, WADRL0T, PTCH1, PTEN, RAD51C, RAD51D, RB1, RET, SDHA, SDHAF2, SDHB, SDHC, SDHD, SMAD4, SMARCA4, SMARCB1, SMARCE1, STK11, SUFU, DITO321, TP53, TSC1, TSC2, VHL. Cancer screening should [...] mailed to the patient. Ashok Shi MS, [facility] Licensed, Certified Genetic Counselor [facility] CC: Dr. Hellen Peña CC BY US MAIL: Dr. Angy Fritz SEND TO PATIENT: Copy of Encounter, Genetic Testing Results Allergies As of Date: 01/21/2025 (Not on File) Date Reviewed: Never Reviewed Reason for Visit: Results [95] Problem List As Of Date: 01/21/2025 (None) Encounter Status:Closed by ASHOK SHI on 01/21/25 PROGRESS Observed: 01/13/2025 10:09 AM Status: COMPLETED Source: [facility] HNO ID: [id number] Author: ASHOK SHI MS Service: ? Author Type: Genetic Counselor Type: Progress Notes Filed: 01/20/2025 13:25 Note Text: [facility] Department of Medical Genetics Consultation Note Genetic Counselor: Ashok Shi MS, [facility] Patient: Mallory Bermeo This visit was conducted via [employer]. I have communicated my name and active licensure. The patient's identity and physical location were verified at the time of this visit. Either the patient or their legal investment representative has been informed of the risks and benefits of -- and alternatives to -- treatment through a remote evaluation and consents to proceed with the evaluation remotely. HIGH LEVEL SUMMARY: The patient's family history is significant for Echevarria Syndrome and GGDY2A-tsouofaazo cancer risk. The patient has a 50% [...] genetic counseling and risk assessment for Mallory Bermeo, a 34 year old female, for discussion of her family history of Echevarria syndrome. She presents to clinic today to discuss the possibility of a genetic predisposition to cancer, and to further clarify her risks, as well as her family members' risks for cancer. HISTORY OF PRESENT ILLNESS: Mallory Bermeo is a 34 year old female with [...] etiology of Echevarria Syndrome as well as DUZW0R-hsvhssirjy cancer risk. The patient has a 50% [...] discussed for the patient according to the [place] [employer] guidelines. In either case, the [...] NTHL1, PALB2, PDGFRA, PMS2, POLD1, POLE, POT1, HWOHL9H, PTCH1, PTEN, RAD51C, RAD51D, RB1, RET, SDHA, SDHAF2, SDHB, SDHC, SDHD, SMAD4, SMARCA4, SMARCB1, SMARCE1, STK11, SUFU, KJYG099, TP53, TSC1, TSC2, VHL The Multi-Cancer panel [...] SCOTT does not apply to life insurance, shelter care insurance, or disability insurance. Per the [...] the electronic medical record. Ashok Shi MS, [facility] Licensed, Certified Genetic Counselor [facility] CC: Idania Fishman CC BY MAIL: Dr. Angy Fritz CBC WITH AUTO DIFFERENTIAL Collected: 0 11/28/2024 9:58 AM Status: COMPLETED Source: [facility] TYPE CODE TESTS RESULT OUT OF RANGE REFERENCE UNITS LAB WBC WBC 8.5 4-11 x10E9/L LAB RBC RBC COUNT 4.66 3.8-5.2 X10E12/L LAB HGB HEMOGLOBIN 14.3 11.7-15.5 g/dL LAB HCT HEMATOCRIT 40.9 35-47 % LAB MCV MCV 88 80-100 fL LAB MCH MCH 30.7 27-34 pg LAB MCHC MCHC 35.0 32-36 g/dL LAB RDW RDW 14.3 11.5-15 % LAB PLTC PLATELET COUNT 298 150-450 X10E9/L LAB MPV MPV 7.9 7-12 fL LAB NEUT NEUTROPHILS RELATIVE PERCENT BY AUTOMATED COUNT 62.1 % LAB LYMP LYMPHOCYTES RELATIVE PERCENT BY AUTOMATED COUNT 29.5 % LAB MONO MONOCYTES RELATIVE PERCENT BY AUTOMATED COUNT 4.6 % LAB EOS EOSINOPHILS RELATIVE PERCENT BY AUTOMATED COUNT 3.1 % LAB BASO BASOPHILS RELATIVE PERCENT BY AUTOMATED COUNT 0.7 % LAB ANEUT NEUTROPHILS ABSOLUTE COUNT BY AUTOMATED COUNT 5.3 10*3/uL LAB ALYMP LYMPHOCYTES ABSOLUTE COUNT (10*3/UL) BY AUTOMATED COUNT 2.5 10*3/uL LAB AMONO MONOCYTES ABSOLUTE COUNT (10*3/UL) BY AUTOMATED COUNT 0.4 10*3/uL LAB AEOS EOSINOPHILS ABSOLUTE COUNT (10*3/UL) BY AUTOMATED COUNT 0.3 10*3/uL LAB ABASO BASOPHILS ABSOLUTE COUNT (10*3/UL) BY AUTOMATED COUNT 0.1 10*3/uL LAB DTYPE CELLAVISION DIFFERENTIAL TYPE AUTOMATED DIFFERENTIAL Performed By: #### CBCA #### [facility] ([facility]) [address] [place] [address] VIR COMPREHENSIVE METABOLIC PANEL Collected: 2024 9:58 AM Status: COMPLETED Source: [facility] TYPE CODE TESTS RESULT OUT OF RANGE REFERENCE UNITS LAB NA SODIUM 136 134-146 mmol/L LAB K POTASSIUM 3.9 3.5-5.0 mmol/L LAB CL CHLORIDE 98 98-109 mmol/L LAB CO2 CARBON DIOXIDE 30 22-32 mmol/L LAB AGAP ANION GAP 8 5-15 mmol/L LAB BUN BLOOD UREA NITROGEN 8 5-23 mg/dL LAB CRET CREATININE 0.48 0.40-1.00 mg/dL Result Comment: METHOD TRACE ABLE TO IDMS STANDARD LAB GLU GLUCOSE 194 High 65-99 mg/dL LAB CA CALCIUM 9.8 8.5-10.5 mg/dL LAB TP TOTAL PROTEIN 7.5 6.0-8.0 g/dL LAB ALB ALBUMIN 4.0 3.2-5.3 g/dL LAB ALK ALKALINE PHOSPHATASE 108 39-130 U/L LAB AST AST 22 <=41 U/L LAB ALT ALT 23 <=31 U/L LAB TBIL BILIRUBIN,TOTAL 0.5 0.3-1.2 mg/dL LAB EGFR EGFR (CKD-EPI) NON-RACE DEPENDENT >^90 >=60 ml/min/1 .73sq.m Result Comment: Reported eGF R is based on the CKD-EPI 2020 equation that does not use a race coefficient. Performed By: #### CMP #### [facility] ([facility]) [address] [place] [address] VIR LIPID PROFILE Collected: 11/28/2024 9:58 AM Status: COMPLETED Source: [facility] TYPE CODE TESTS RESULT OUT OF RANGE REFERENCE UNITS LAB CHOL CHOLESTEROL 215 High 150-200 mg/dL LAB TRIG TRIGLYCERIDE 285 High 27-150 mg/dL LAB HDL HDL CHOLESTEROL 44 >39 mg/dL Result Comment: HDL <40 mg/d L - High Risk HDL > or = 40mg/dL- Desirable HDL >60 mg/dL - Negative Risk LAB LDL LDL (CALC) 114 <130 mg/dL Result Comment: LDL <100 mg/ dL - Desirable LDL >160 mg/dL - High Risk LAB CHDL CHOLESTEROL:HDL 4.9 1.0-5.0 NA LAB VLDL VERY LOW LIPOPROTEIN 57 High 0-30 mg/dL Performed By: #### LIPR #### [facility] ([facility]) [address] [place], [place] [id number] VIR MICROALBUMIN / CREATININE UR INE RATIO Collected: 11/28/2024 9:58 AM Status: COMPLETED Source: [facility] TYPE CODE TESTS RESULT OUT OF RANGE REFERENCE UNITS LAB UCRR URINE CREATININE,RDM 151.60 mg/dL LAB MABCR MALB/CREAT RATIO 6.6 0.0-30.0 mg/g LAB MALB MICROALBUMIN, URINE 1.0 0.0-1.9 mg/dL Performed By: #### MALBU ### # [facility] ([facility]) [facility]. [address] [address] VIR THYROID PROFILE INCLUDES TSH FT4 Collected: 11/28/2024 9:58 AM Status: COMPLETED Source: [facility] TYPE CODE TESTS RESULT OUT OF RANGE REFERENCE UNITS LAB FT4 FREE T4 0.65 0.61-1.60 ng/dL LAB TSH TSH 3.53 0.49-4.67 uIU/mL Performed By: #### THYR #### [facility] ([facility]) [address] [place] [address] VIR VITAMIN D 25 HYDROXY Collected: 11/28/2024 9:58 AM Status: COMPLETED Source: [facility] Order Comment: Vitamin D sta tus 25 [place] Vitamin D Deficiency <20 ng/mL Insufficiency 20-29 ng/mL Sufficiency 30-100 ng/mL Toxicity >100 ng/mL NOTE: A pediatric reference range has not been established by the refuge worker of this kit. The [place] [employer] recommends a Vitamin D level of = or >20ng/mL in infants and children. TYPE CODE TESTS RESULT OUT OF RANGE REFERENCE UNITS LAB VITD VITAMIN D 25 HYD TOT 12.7 Low 30.0-100.0 ng/mL Performed By: #### VITD #### [facility] ([facility]) [address] [place] [address] VIR ALLERGIES DATE TYPE / CODE NAME / CODE REACTION SEVERITY SOURCE Drug Class/[id number](SNO MED CT) NO KNOWN ALLERGIES [facility] ENCOUNTERS ADMIT/DISCHARGE ACCOUNT NUMBER ADMITTING ENCOUNTER CLASS LOCATION SOURCE 02/02/2025/02/03/20 [id number] Ambulatory Building:[facility] OB [facility] 01/18/2025/01/19/20 [id number] Ambulatory Building:[facility] OB [facility] 01/13/2025/01/14/20 [id number] Ambulatory [facility] Hospital[facility] ing:[facility] 01/13/2025/01/14/20 [id number] Ambulatory [facility] Hospital[facility] ing:NEGM [facility] 11/28/2024 [id number] Ambulatory Building:PF M_ LAB [facility] 05/26/2024/05/26/20 24 [id number] Emergency Building:PFM_ EDRoom: H3Bed: [address] PAYERS ENCOUNTER GUARANTOR PAYER SUBSCRIBER SOURCE 02/02/2025 MALLORY CUNNINGHAM: [id number] [address]Mwp: (HP) Primary Insurance:ALLIED BENEFIT SYSTEMSPolicy Number: [id number] Date:2024-10-27 MALLORY BERMEODOB: [id number] [address] [address] [facility] 01/18/2025 MALLORY BERMEODOB: [address] [address]Ipv: (HP) Primary Insurance:ALLIED BENEFIT SYSTEMSPolicy Number: [id number] Date:2024-10-27 MALLORY BERMEODOB: [id number] [address] [address] [facility] Medical [facility] 01/13/2025 Primary Insurance:[employer]ET[employer] SIGNATURE ADMINISTRATORS PPOPolicy Number: [id number] Date:[id number] Name:Sheridan TATEB: [id number] [address] [address] [facility] 01/13/2025 Primary Insurance:[employer] SIGNATURE ADMINISTRATORS PPOPolicy Number: [id number] Date:[id number] Name:Sheridan TATEB: [id number] [address] [address] [facility] 11/28/2024 MALLORY BERMEODOB: [address] [address]Wyr: (HP) Primary Insurance:ALLIED BENEFIT SYSTEMS, LLCPolicy Number: [id number] Date:2024-11-28 MALLORY BERMEODOB: [id number] [address] [address]Xtd: (WP) [facility] 05/26/2024 [facility] [id number] NTER NAMEDOB: [address] [place], [place] [address]Fwe: (HP) Primary Insurance:WORKER'S [id number] SP ONLYPolicy Number: [id number] Date: MALLORY LONG CUNNING[place]: [id number] [address] [place], [place] [address] [place] [address]
[2025-02-05 18:13] LABS: Age Gdln ACOG Testing Note (.); IGP, Aptima HPV, rfx 16/18,45 Note (.)
== END 2025-02-02 20:11 | disposition home or self-care (01) ==
LOC: LAB 20:10
PROVIDERS: Family Provider Family Medicine; PCP Family Medicine; Visit Provider Physician Assistant
DX: Z01.419 Encounter for gynecological examination (general) (routine) without abnormal findings (principal)
CPT/HCPCS: 87624; 88175